=== PATIENT | male | born 1985 | race Caucasian/White ===

== ENCOUNTER 2018-06-21 08:07 | Emergency (ER) | payer OTHER, SELFPAY ==
[2018-06-21 07:53] VITALS: PULSE 65; RESP 16; TEMP 37
--- NOTE | 2018-06-21 07:58 | W.ED.GENAD ---
Discharge Plan Disposition Patient Disposition: HOME Condition: Improving Discharge Details Chief Complaint: Nk/Back Pain Clinical Impression: Spasm of lumbar paraspinous muscle Reason For Visit: SAÚL Primary Care Provider: Jeanne Gar ED Provider: Hadley Lira Home Meds and New Rx's Prescriptions: New methocarbamol 500 mg tablet 500 mg PO Q6H PRN (Reason: Back pain or spasm) Qty: 14 RF: 0 Continue Bromidine Titrate 1 drp OU BID RF: 0 Discharge Instructions Instructions: Muscle Spasm (ED) Additional Instructions: Home to rest. Minimal physical exertion today. May foam roll or massage. Avoid deep stretching for approximately 1 week. Continue to hydrate as you have been. May use methocarbamol as needed for persistent pain or spasm. Return for development of weakness of the legs, numbness or tingling, or any other acute concern. Medical Decision Making 33-year-old male with the abrupt onset of left lumbar back spasm while rolling over in bed this morning. Somewhat improved by the time of arrival to position and heat. No motor or sensory deficits. Does not appear to be urologic. Patient had IV access established by EMS, on arrival was given 1 L lactated Ringer's, 2 g of magnesium, ketorolac and small amount of parenteral Valium. Urinalysis obtained Patient improved significantly with above medications, with little to no persistent pain. I do not feel that there is evidence of sacroiliitis, but that it is most consistent with muscular spasm. Improved and will trial outpatient management. Home care and return precautions discussed. Will offer methocarbamol for persistent muscular pain/spasm. HPI General Mode of arrival: EMS. Date/Time Provider Initiated Documentation: 06/21/18 08:47. Limitations to Documentation: no limitations. Information obtained by: patient and EMS. History of Present Illness described as severe, and is localized to the back and left. Patient reports no radiation. Patient started experiencing this hour(s) and it has been other (Improving). other things that improve symptom(s), (Heat) Movement worsens symptoms . Patient notes nausea/vomiting. HPI Narrative: Back pain and spasm that began while twisting to turn off the alarm. Associated with waves of pain and vomited x2. Seem to worsen when lying in cold bathroom floor. EMS called, patient able to ambulate to the ambulance, was brought to the emergency department and is improved at arrival. No change to urine, no fever, no motor or sensory changes. Related Data Home Medications Medication Instructions Recorded Confirmed Bromidine Titrate 1 drp OU BID 01/02/18 06/21/18 methocarbamol 500 mg PO Q6H PRN #14 tab 06/21/18 Previous Rx's Medication Instructions Recorded methocarbamol 500 mg PO Q6H PRN #14 tab 06/21/18 Allergies Allergy/AdvReac Type Severity Reaction Status Date / Time doxycycline AdvReac Unverified 06/21/18 08:54 Review of Systems Review of Systems 6 systems reviewed and otherwise negative [facility] Social History Smoking/Tobacco Use Status: Never Exam Narrative Exam Narrative: GEN: awake, alert, oriented 3. Pleasant, well groomed, interactive. HEAD: Normocephalic, atraumatic ENT: Mucous membranes moist, oropharynx unremarkable, External ear exam unremarkable EYES: PERRL, EOMI NECK: Full ROM, no PONCHO, no menigismus CHEST/RESP: Nontender, clear to auscultation bilateral, no wheeze/rhonchi/rales CARDIOVASCULAR: RRR, no murmur, rub toby. 2+ Rad pulse bilateral ABDOMEN: Soft, nontender, no mass. +Bowel sounds. Examination of the back reveals muscular spasm and tenderness along the left paraspinous musculature of the lumbar region. No significant sciatic notch tenderness. EXT: Full ROM, no edema, no rash. Motor 5 out of 5, sensation intact throughout. 2+ patellar reflex bilaterally. Neuro: Grossly normal neurologic exam, conversant, interactive. Psych: Speech fluent, thoughts congruent, affect normal
[2018-06-21] MEDS: Lactated Ringers 1,000 ML 1000 ML IV (08:00)
[2018-06-21] MEDS: Ketorolac 30 MG/ML VIAL IVP (08:00)
--- NOTE | 2018-06-21 08:02 | ED.GENADUL_ITS ---
Discharge Plan Disposition Patient Disposition: HOME Condition: Improving Discharge Details Chief Complaint: Nk/Back Pain Clinical Impression: Spasm of lumbar paraspinous muscle Reason For Visit: SAÚL Primary Care Provider: Jeanne Gar ED Provider: Hadley Lira Home Meds and New Rx's Prescriptions: New methocarbamol 500 mg tablet 500 mg PO Q6H PRN (Reason: Back pain or spasm) Qty: 14 RF: 0 Continue Bromidine Titrate 1 drp OU BID RF: 0 Discharge Instructions Instructions: Muscle Spasm (ED) Additional Instructions: Home to rest. Minimal physical exertion today. May foam roll or massage. Avoid deep stretching for approximately 1 week. Continue to hydrate as you have been. May use methocarbamol as needed for persistent pain or spasm. Return for development of weakness of the legs, numbness or tingling, or any other acute concern. Medical Decision Making 33-year-old male with the abrupt onset of left lumbar back spasm while rolling over in bed this morning. Somewhat improved by the time of arrival to position and heat. No motor or sensory deficits. Does not appear to be urologic. Patient had IV access established by EMS, on arrival was given 1 L lactated Ringer's, 2 g of magnesium, ketorolac and small amount of parenteral Valium. Urinalysis obtained Patient improved significantly with above medications, with little to no persistent pain. I do not feel that there is evidence of sacroiliitis, but that it is most consistent with muscular spasm. Improved and will trial outpatient management. Home care and return precautions discussed. Will offer methocarbamol for persistent muscular pain/spasm. HPI General Mode of arrival: EMS . Date/Time Provider Initiated Documentation: 06/21/18 08:47 . Limitations to Documentation: no limitations . Information obtained by: patient and EMS . History of Present Illness described as severe, and is localized to the back and left. Patient reports no radiation. Patient started experiencing this hour(s) and it has been other (Improving). other things that improve symptom(s), (Heat) Movement worsens symptoms . Patient notes nausea/vomiting. HPI Narrative: Back pain and spasm that began while twisting to turn off the alarm. Associated with waves of pain and vomited x2. Seem to worsen when lying in cold bathroom floor. EMS called, patient able to ambulate to the ambulance, was brought to the emergency department and is improved at arrival. No change to urine, no fever, no motor or sensory changes. Related Data Home Medications Medication Instructions Recorded Confirmed Bromidine Titrate 1 drp OU BID 01/02/18 06/21/18 methocarbamol 500 mg PO Q6H PRN #14 tab 06/21/18 Previous Rx's Medication Instructions Recorded methocarbamol 500 mg PO Q6H PRN #14 tab 06/21/18 Allergies Allergy/AdvReac Type Severity Reaction Status Date / Time doxycycline AdvReac Unverified 06/21/18 08:54 Review of Systems Review of Systems 6 systems reviewed and otherwise negative [facility] Social History Smoking/Tobacco Use Status: Never Exam Narrative Exam Narrative: GEN: awake, alert, oriented 3. Pleasant, well groomed, interactive. HEAD: Normocephalic, atraumatic ENT: Mucous membranes moist, oropharynx unremarkable, External ear exam unremarkable EYES: PERRL, EOMI NECK: Full ROM, no PONCHO, no menigismus CHEST/RESP: Nontender, clear to auscultation bilateral, no wheeze/rhonchi/rales CARDIOVASCULAR: RRR, no murmur, rub toby. 2+ Rad pulse bilateral ABDOMEN: Soft, nontender, no mass. +Bowel sounds. Examination of the back reveals muscular spasm and tenderness along the left paraspinous musculature of the lumbar region. No significant sciatic notch tenderness. EXT: Full ROM, no edema, no rash. Motor 5 out of 5, sensation intact throughout. 2+ patellar reflex bilaterally. Neuro: Grossly normal neurologic exam, conversant, interactive. Psych: Speech fluent, thoughts congruent, affect normal
[2018-06-21] MEDS: MAGNESIUM SULFATE 2 GM/50 ML BAG IVPB (08:10)
[2018-06-21 09:10] LABS: Bilirubin Negative (Negative); Blood Small (Negative); Clarity Clear; Glucose Negative (Negative); Ketones Negative (Negative); Leukocyte Esterase Negative (Negative); Nitrite Negative (Negative); Urobilinogen 0.2 EU/dL (Up TO 0.2)
[2018-06-21 09:22] LABS: Bacteria Negative HPF (Negative); C & S Indicated? No; Casts Negative LPF (Negative); Crystals Negative HPF (Negative); Epithelial Cells Negative HPF (Negative); Mucus Moderate (Negative); WBC 0-2 HPF (0-5)
[2018-06-21 09:55] VITALS: BP 125/74; PULSE 64; RESP 16; TEMP 37; O2SAT 98
--- NOTE | 2018-06-21 10:05 | NUR.NOTE ---
pt accedently pulled his IV out. Half of the magnesium dose ordered given.-per DR Lira.Nursing Note:
== END 2018-06-21 10:01 | disposition home or self-care (01) ==
LOC: ER 10:21
PROVIDERS: Emergency Provider Emergency Medicine; PCP Internal Medicine
DX: M62.830 Muscle spasm of back (principal); R11.2 Nausea with vomiting, unspecified
CPT/HCPCS: 96361; 96365; 96375; 99284; 81003; 81015; J1885

== ENCOUNTER 2019-07-22 09:19 | Outpatient (REF) | payer OTHER, SELFPAY ==
[2019-07-22 13:04] LABS: ALT 22 U/L (16-63); AST 20 U/L (15-37)
== END 2019-07-22 09:39 ==
LOC: NCHCN 09:19
PROVIDERS: PCP Internal Medicine; Visit Provider Nurse Practitioner Family
DX: R74.0 Nonspecific elevation of levels of transaminase and lactic acid dehydrogenase [LDH] (principal)
CPT/HCPCS: 84450; 84460

== ENCOUNTER 2019-12-28 12:30 | Outpatient (REF) | payer OTHER, SELFPAY ==
[2019-12-28 21:34] LABS: HCT 43.2 % (40.0-50.0); HGB 14.7 g/dL (13.5-17.5); Mean Corpuscular Hemoglobin 30.2 pg (27.0-33.0); Mean Corpuscular Volume 88.9 fL (80-95); Mean Platelet Volume 10.1 fL (8.0-11.0); Platelet Count 242 x1000/uL (130-400); RBC 4.86 m/cumm (4.50-6.00); White Blood Cell Count 4.52 k/cumm (4.4-10.8)
[2019-12-28 21:44] LABS: BUN 17 mg/dL (7-18); CREATININE 0.91 mg/dL (0.70-1.30); Calcium 8.8 mg/dL (8.5-10.1); Chloride 103 mmol/L (98-107); Glucose 90 mg/dL (74-106); Potassium 4.3 mmol/L (3.5-5.1); Sodium 141 mmol/L (136-145); TSH (W/Ref FT4) 0.92 uIU/mL (0.36-3.74)
== END 2019-12-28 12:50 ==
LOC: NCHCN 12:30
PROVIDERS: PCP Internal Medicine
DX: R07.89 Other chest pain (principal); R06.02 Shortness of breath; R53.83 Other fatigue; R42 Dizziness and giddiness
CPT/HCPCS: 80048; 85027; 84443

== ENCOUNTER 2020-02-15 13:15 | Outpatient (REF) | payer OTHER, SELFPAY ==
[2020-02-17 23:51] LABS: SARS-CoV-2 RNA Undetected (Undetected); SARS-CoV-2 Specimen Source Nasopharynx
== END 2020-02-15 13:35 ==
LOC: NCHCN 13:15
PROVIDERS: PCP Internal Medicine; Visit Provider Internal Medicine
DX: Z20.9 Contact with and (suspected) exposure to unspecified communicable disease (principal)
CPT/HCPCS: U0003

== ENCOUNTER 2020-08-13 16:16 | Outpatient (REF) | payer OTHER, SELFPAY ==
[2020-08-14 11:34] LABS: Hepatitis C Ab w Rflx HCV PCR Negative (Negative)
[2020-08-14 11:37] LABS: Hepatitis C Ab w Rflx HCV PCR Negative (Negative)
== END 2020-08-13 16:36 ==
LOC: NCHCN 16:16
PROVIDERS: PCP Nurse Practitioner Family; Visit Provider Nurse Practitioner Family
DX: Z00.00 Encounter for general adult medical examination without abnormal findings (principal); Z11.59 Encounter for screening for other viral diseases; G43.909 Migraine, unspecified, not intractable, without status migrainosus
CPT/HCPCS: 86803

== ENCOUNTER 2021-06-10 16:19 | Outpatient (REF) | payer OTHER, SELFPAY ==
[2021-06-10 22:13] LABS: ALT 23 U/L (16-63); AST 16 U/L (15-37); Albumin 4.1 g/dL (3.4-5.0); Alkaline Phosphatase 96 U/L (46-116); Bilirubin, Total 0.6 mg/dL (0.2-1.0)
[2021-06-10 22:22] LABS: Bilirubin, Direct 0.1 mg/dL (0.0-0.2)
== END 2021-06-10 16:20 | disposition home or self-care (01) ==
LOC: NCHCN 16:19
PROVIDERS: PCP Nurse Practitioner Family; Visit Provider Family Medicine
DX: B35.1 Tinea unguium (principal); Z51.81 Encounter for therapeutic drug level monitoring
CPT/HCPCS: 80076

== ENCOUNTER 2022-10-07 13:56 | Outpatient (REF) | payer OTHER, SELFPAY ==
[2022-10-07 16:03] LABS: Abs Immature Grans 0.02 10^3/uL (0.0-0.06); Absolute Basophil Count 0.05 10^3/uL (0.0-0.2); Absolute Eosinophil Count 0.32 10^3/uL (0.0-0.7); Absolute Lymphocyte Count 1.78 10^3/uL (1.2-3.4); Absolute Monocyte Count 0.59 10^3/uL (0.1-0.8); Absolute Neutrophil Count 2.18 10^3/uL (1.2-6.7); Eosinophils % 6.5; HCT 45.3 % (40.0-50.0); Immature Grans % 0.4; MCH 30.1 pg (27.0-33.0); MCHC 35.3 % (32.0-36.0); MCV 85 fL (80-95); MPV 9.4 fL (8.0-11.0); Monocytes % 11.9; Neutrophils % 44.2; Platelet Count 275 10^3/uL (130-400); RBC 5.32 10^6/uL (4.36-5.78); RDW-SD 36.7 fL; WBC 4.94 10^3/uL (4.4-10.8)
[2022-10-07 16:43] LABS: Iron 131 ug/dL (65-175); Total Iron Binding Capacity 237 ug/dL (250-450); Transferrin Sat 55 % (20-55)
[2022-10-07 17:04] LABS: Anion Gap 7.8 mmol/L (3-11); BUN 14 mg/dL (7-18); CO2 28.2 mmol/L (21.0-32.0); CREATININE 0.9 mg/dL (0.70-1.30); Chloride 104 mmol/L (98-107); Estimated GFR 111.42 (mL/min/1.73m2); Ferritin 337 ng/mL (26-388); Glucose 101 mg/dL (74-106); Potassium 4.6 mmol/L (3.5-5.1); Sodium 140 mmol/L (136-145); TSH (W/Ref FT4) 0.92 uIU/mL (0.36-3.74); Vitamin B12 689 pg/mL (193-986)
== END 2022-10-07 13:57 | disposition home or self-care (01) ==
LOC: NCHCN 13:56
PROVIDERS: PCP Nurse Practitioner Family; Visit Provider Nurse Practitioner Family
DX: Z00.00 Encounter for general adult medical examination without abnormal findings (principal); R06.83 Snoring; R53.83 Other fatigue; F43.10 Post-traumatic stress disorder, unspecified; F41.9 Anxiety disorder, unspecified; M79.672 Pain in left foot; H47.329 Drusen of optic disc, unspecified eye; G43.909 Migraine, unspecified, not intractable, without status migrainosus
CPT/HCPCS: 80048; 82607; 82728; 83540; 83550; 84443; 85025

== ENCOUNTER 2023-01-11 22:49 | Emergency (ER) | payer OTHER, SELFPAY ==
[2023-01-11 22:53] VITALS: BP 132/93; PULSE 69; RESP 20; TEMP 36.1; O2SAT 98
--- NOTE | 2023-01-11 23:06 | W.ED.GENAD ---
Discharge Plan Disposition Patient Disposition: Home Condition: Improving Discharge Details Clinical Impression: Hemorrhoid Primary Care Provider: Nita Eason ED Provider: Colton Mendez Home Meds and New Rx's Prescriptions: New hydrocortisone [Anusol-HC] 2.5 % cream with perineal applicator 1 applic [place] BID-QID PRNQty: 30 0RF docusate sodium [Colace] 100 mg capsule 100 mg PO DAILY Qty: 20 0RF Discharge Instructions Instructions: Hemorrhoids (DC) Additional Instructions: Please use medications as prescribed. Please return to the emergency department for new or worsening symptoms. If hemorrhoid not healing in the next couple of weeks consider calling surgical team for follow-up appointment Referrals: Issac Marroquin MD [ [facility] STAFF PHYSICIAN] - 2 weeks (if non healing in the next couple weeks, call for appointment with surgical team) Medical Decision Making 37-year-old male presents with rectal bleeding, has been dealing with hemorrhoids for some time was using Preparation H earlier today, red blood running down his leg after driving the car this evening, patient is hemodynamically stable abdomen soft nontender nondistended alert oriented nontoxic. External hemorrhoid likely partially thrombosed with area of ulceration and spontaneous venous oozing. No active hemorrhage. Will apply Anusol. Will send basic labs type and screen and PT/INR. Close reassessment of symptoms likely home with surgical follow-up as needed 23: 48 bleeding is stopped. Anusol administered. Will discharge home with stool softener Anusol and surgical referral as needed. Home care instructions return precautions give HPI General Date/Time Provider Initiated Documentation: 01/11/23 22:51. HPI Narrative: 37-year-old male history of hemorrhoids presents with bright light blood from rectum was having rectal/anal pain throughout the last couple of days, noticed a hemorrhoid was using Preparation H today. [place] liquid blood running down his leg before arrival when he was driving the car Related Data Home Medications Medication Instructions Recorded Confirmed docusate sodium 100 mg capsule 100 mg PO DAILY #20 caps 01/11/23 (Colace) hydrocortisone 2.5 % topical cream 1 applic [place] BID-QID PRN #30 grams 01/11/23 with perineal applicator (Anusol-HC) Previous Rx's Medication Instructions Recorded docusate sodium 100 mg capsule 100 mg PO DAILY #20 caps 01/11/23 (Colace) hydrocortisone 2.5 % topical cream 1 applic [place] BID-QID PRN #30 grams 01/11/23 with perineal applicator (Anusol-HC) Allergies Allergy/AdvReac Type Severity Reaction Status Date / Time doxycycline AdvReac Unverified 06/21/18 08:54 General Stated Complaint: GI Bleed SABRINA: 3 Review of Systems Narrative: Review of Systems Constitutional: negative Eyes: negative ENT: negative Cardiovascular: negative Respiratory: negative Gastrointestinal: Rectal bleeding : negative Musculoskeletal: negative Skin: negative Neurologic: negative Psych: negative PFSH All Active Problems (Updated 01/11/23 @ 23:48 by Colton Mendez MD) Hemorrhoid (Acute) Social History Smoking/Tobacco Use Status: Never Smoking risk assessment performed?: Yes Alcohol Intake: never Drug use: Never Substance use type: does not use Do you feel safe in your relationship?: Yes Exam Narrative Exam Narrative: Physical Examination General: alert, awake, cooperative, resting comfortably, no acute distress HEENT: normocephalic, atraumatic; PERRL, EOM intact, conjunctiva normal; no nasal discharge; moist mucous membranes, oral and pharyngeal mucosa normal, tolerating secretions Neck: supple, trachea midline; full ROM Chest: normal to inspection Respiratory: normal respiratory effort, speaking in full sentences, clear to auscultation, no wheezing, rales or rhonchi Cardiac: regular rate, regular rhythm, S1S2 intact, no murmurs rubs or gallops GI: abdomen soft, non-tender, non-distended; no palpable mass or hepatosplenomegaly; large partially thrombosed external hemorrhoid, area of spontaneous ulceration that has ruptured, small amount of venous oozing Skin: no lesions, rashes or trauma appreciated Neuro: AAOx3, normal speech, moving all extremities Psych: Appropriate mood and affect Course Vital Signs Vital signs: Vital Signs Temperature 36.1 C L 01/11/23 22:53 Pulse 69 01/11/23 22:53 Respiratory Rate 20 01/11/23 22:53 Blood Pressure 132/93 H 01/11/23 22:53 Pulse Oximetry 98 01/11/23 22:53 Temperature 36.1 C L 01/11/23 22:53 Temperature Source Temporal Artery Scan 01/11/23 22:53 Pulse 69 01/11/23 22:53 Respiratory Rate 20 01/11/23 22:53 Respiratory Effort Normal 01/11/23 22:57 Blood Pressure 132/93 H 01/11/23 22:53 Blood Pressure Position Sitting 01/11/23 22:53 Pulse Oximetry 98 01/11/23 22:53 Oxygen Delivery Method Room Air 01/11/23 22:53 Oxygen Flow Rate 0 01/11/23 22:53
[2023-01-11 23:11] LABS: Abs Immature Grans 0.01 10^3/uL (0.0-0.06); Absolute Basophil Count 0.04 10^3/uL (0.0-0.2); Absolute Eosinophil Count 0.45 10^3/uL (0.0-0.7); Absolute Lymphocyte Count 2.42 10^3/uL (1.2-3.4); Absolute Monocyte Count 0.72 10^3/uL (0.1-0.8); Basophils % 0.6; HCT 41.2 % (40.0-50.0); HGB 14.4 g/dL (13.5-17.5); Immature Grans % 0.2; Lymphocytes % 37.6; MCH 30.4 pg (27.0-33.0); MCV 87 fL (80-95); Monocytes % 11.2; Neutrophils % 43.4; Platelet Count 221 10^3/uL (130-400); RBC 4.74 10^6/uL (4.36-5.78); RDW 12.3 % (11.8-14.1); RDW-SD 39.5 fL; WBC 6.44 10^3/uL (4.4-10.8)
[2023-01-11 23:22] LABS: PTT Activated 26.5 sec (21.5-31.9); Prothrombin Time 10.5 sec (9.3-11.0)
[2023-01-11] MEDS: Hydrocortisone 25 MG SUPP PR (23:24)
[2023-01-11 23:29] LABS: ALT 30 U/L (16-63); AST 29 U/L (15-37); Albumin 3.8 g/dL (3.4-5.0); Alkaline Phosphatase 85 U/L (46-116); BUN 14 mg/dL (7-18); Bilirubin, Total 0.4 mg/dL (0.2-1.0); Calcium 8.4 mg/dL (8.5-10.1); Chloride 106 mmol/L (98-107); Estimated GFR 98.18 (mL/min/1.73m2); Glucose 118 mg/dL (74-106); Potassium 3.4 mmol/L (3.5-5.1); Sodium 142 mmol/L (136-145); Total Protein 6.9 g/dL (6.4-8.2)
[2023-01-11 23:43] VITALS: BP 119/81; PULSE 57; PULSE 61; RESP 15; O2SAT 98
[2023-01-11 23:44] VITALS: PULSE 64; RESP 16; O2SAT 98
[2023-01-11 23:46] VITALS: BP 117/85; PULSE 59; PULSE 60; RESP 21; O2SAT 99
[2023-01-12 00:02] VITALS: BP 117/85; PULSE 65; RESP 18; O2SAT 98
== END 2023-01-12 00:03 | disposition home or self-care (01) ==
PROVIDERS: Emergency Provider Emergency Medicine; PCP Nurse Practitioner Family
DX: K64.9 Unspecified hemorrhoids (principal)
CPT/HCPCS: 36415; 80053; 86850; 86900; 86901; 99283; 85025; 85610; 85730

== ENCOUNTER 2023-10-12 09:51 | Outpatient (REF) | payer OTHER, SELFPAY ==
[2023-10-12 22:18] LABS: PSA, Diagnostic 0.6 ng/mL (<=2.5)
== END 2023-10-12 09:52 | disposition home or self-care (01) ==
LOC: NCHCN 09:51
PROVIDERS: PCP Nurse Practitioner Family; Visit Provider Nurse Practitioner Family
DX: E66.3 Overweight (principal); Z80.42 Family history of malignant neoplasm of prostate
CPT/HCPCS: 84153; 84443

== ENCOUNTER 2024-03-10 13:01 | Emergency (ER) | payer OTHER, SELFPAY ==
[2024-03-10] VITALS (19 sets, daily range): BP systolic 111–133; BP diastolic 78–92; PULSE 65–92; RESP 12–22; TEMP 36.2–36.4; O2SAT 95–97
--- NOTE | 2024-03-10 13:00 | RT.EKG_ITS ---
APPROVED REPORT Exam: Resting ECG Reason for Exam: sob Patient Location: E HR:81 bpm ECG Measurements Heart Rate 81 AXIS SD 166 P 75 QRSd 66 QRS 79 QT 353 T 63 QTc 410 Conclusion Sinus rhythm...normal P axis, V-rate 60- 99 Probable left atrial enlargement...P >50mS, <-0.10mV V1
[2024-03-10 13:22] LABS: Abs Immature Grans 0.02 10^3/uL (0.0-0.06); Absolute Basophil Count 0.06 10^3/uL (0.0-0.2); Absolute Eosinophil Count 0.16 10^3/uL (0.0-0.7); Absolute Lymphocyte Count 1.62 10^3/uL (1.2-3.4); Absolute Monocyte Count 0.58 10^3/uL (0.1-0.8); Absolute Neutrophil Count 2.78 10^3/uL (1.2-6.7); Basophils % 1.1 %; Eosinophils % 3.1 %; HCT 47.6 % (40.0-50.0); HGB 16.8 g/dL (13.5-17.5); Immature Grans % 0.4 %; MCH 29.7 pg (27.0-33.0); MCHC 35.3 % (32.0-36.0); MCV 84 fL (80-95); MPV 8.9 fL (8.0-11.0); Monocytes % 11.1 %; Neutrophils % 53.3 %; Platelet Count 219 10^3/uL (130-400); RBC 5.65 10^6/uL (4.36-5.78); RDW 12.1 % (11.8-14.1); RDW-SD 37.1 fL; WBC 5.22 10^3/uL (4.4-10.8)
--- NOTE | 2024-03-10 13:30 | DI.CT_ITS ---
Exam(s) CT BRAIN NECK CTA EXAM: CT BRAIN NECK CTA CLINICAL HISTORY: left arm numbness. TECHNIQUE: Imaging Protocol: Axial CT angiography was performed with multi-slice acquisition and mu lti-planar and MIP reconstructions. CONTRAST MATERIAL: Intravenous: Omnipaque 350 Contrast volume:100 ml COMPARISON: No exams were available for comparison FINDINGS: CT Head W/O and W contrast: Ventricles and Extra axial spaces: Normal in size and morphology for the patient's age. Hemorrhage: None. Cerebral parenchyma: No evidence of acute infarct or mass. Midline shift: None. Brainstem/Cerebellum: No acute findings.. Calvarium: Normal. Visualized Paranasal sinuses/Mastoids: Clear. Soft Tissues: Unremarkable. Enhancement: Normal. CTA Brain W: Internal Carotid Arteries: Petrous: Normal. Cavernous: Normal. Cerebral: Normal. Middle Cerebral Arteries: Right: No aneurysm, occlusion or significant stenosis. Left: No aneurysm, occlusion or significant stenosis. Anterior Cerebral Arteries: Right: No aneurysm, occlusion or significant stenosis. Left: No aneurysm, occlusion or significant stenosis. Posterior cerebral Arteries: Right: No aneurysm, occlusion or significant stenosis. Left: No aneurysm, occlusion or significant stenosis. Vertebral Arteries: Right: No aneurysm, occlusion or significant stenosis. Left: No aneurysm, occlusion or significant stenosis. Basilar Artery: No aneurysm, occlusion or significant stenosis. CTA Neck W: Common Carotid: Right: No dissection, occlusion or significant stenosis. Left: No dissection, occlusion or significant stenosis. External Carotid: Right: No dissection, occlusion or significant stenosis. Left: No dissection, occlusion or significant stenosis. Internal Carotid: Right: No dissection, occlusion or significant stenosis. Left: No dissection, occlusion or significant stenosis. Vertebral Artery: Right: No dissection, occlusion or significant stenosis. Left: No dissection, occlusion or significant stenosis. Lung Apices: No acute findings. Bones: No acute abnormality. Degenerative disc changes at C6-7. Soft Tissues: Normal. IMPRESSION: 1. CTA brain: Normal CTA examination of the [place] of [place]. 2. Head CT: Unremarkable CT Head. 3. CTA neck: Normal CTA examination of the neck. RADIATION DOSE DELIVERED: 2,205.81mGy.cm Total DLP DATA REPOSITORY: All CT scans at this facility are submitted to the National Radiology Data Registry (NRDR) Dose Index Registry (DIR) with the [employer] (A[employer]). RADIATION OPTIMIZATION: All CT scans at this facility use at least one of these dose optimization te chniques: automated exposure control; mA and/or kV adjustment per patient size (includes targeted exa ms where dose is matched to clinical indication); or iterative reconstruction.
[2024-03-10 13:45] LABS: ALT 33 U/L (16-63); AST 30 U/L (15-37); Albumin 4.2 g/dL (3.4-5.0); Alkaline Phosphatase 104 U/L (46-116); Anion Gap 7.1 mmol/L (3-11); BUN 13 mg/dL (7-18); Bilirubin, Total 1.01 mg/dL (0.2-1.0); CO2 28.9 mmol/L (21.0-32.0); CREATININE 1.1 mg/dL (0.70-1.30); Calcium 9.3 mg/dL (8.5-10.1); Chloride 102 mmol/L (98-107); Estimated GFR 87.03 (mL/min/1.73m2); Glucose 103 mg/dL (74-106); Magnesium 1.8 mg/dL (1.8-2.4); Potassium 4.2 mmol/L (3.5-5.1); Sodium 138 mmol/L (136-145); Total Protein 7.8 g/dL (6.4-8.2); Troponin I < 50 ng/L (< or =60)
--- NOTE | 2024-03-10 14:00 | DI.MRI_ITS ---
Exam(s) MR BRAIN WO EXAM: MR BRAIN WO CLINICAL HISTORY: left arm weakness, now resolved. TECHNIQUE: Multiplanar multisequence MRI of the brain was performed. CONTRAST MATERIAL: Noncontrast COMPARISON: CT CT BRAIN NECK CTA from 03/10/2024 FINDINGS: VENTRICLES AND EXTRA AXIAL SPACES: Normal in size and morphology for the patient's age. HEMORRHAGE: No acute hemorrhage. Single focus of susceptibility artifact seen in the left frontal pa rietal region, at the level of the left lateral ventricle, consistent with hemosiderin which could be secondary to an old focus of hemorrhage. CEREBRAL PARENCHYMA: No focus of restricted diffusion to suggest acute infarct. No space-occupying le karena identified. MIDLINE SHIFT: None. BRAINSTEM/CEREBELLUM: Normal. CALVARIUM: Normal. VISUALIZED PARANASAL SINUSES/MASTOIDS: Clear. Orbits: Unremarkable. Pituitary: Normal. Vasculature: Normal flow voids. IMPRESSION: No evidence of acute infarct. Single focus of hemosiderin deposition in the left frontal parietal region DATA REPOSITORY:
[2024-03-10] MEDS: Omnipaque 350 MG/ML 100 ML BTL IJ (14:03)
[2024-03-10] MEDS: Normal Saline - Diluent 50 ML VIAL IJ (14:05)
--- NOTE | 2024-03-10 14:35 | W.ED.GENAD ---
Discharge Plan Disposition Patient Disposition: Home Condition: Stable Discharge Details Clinical Impression: Left arm weakness, TIA (transient ischemic attack) Primary Care Provider: Nita Eason ED Provider: Jonathan Parsons Home Meds and New Rx's Prescriptions: No Action buspirone 10 mg tablet 10 mg PO BID Discharge Instructions Instructions: Transient Ischemic Attack ED, [place] ED Additional Instructions: MRI of your brain showed no stroke. There was a incidental finding of a single focus of hemosiderin deposit in the left frontal parietal region. This could be secondary to an old focus of hemorrhage. Please follow-up with neurology. Call tomorrow to schedule follow-up. Please contact your primary care physician to arrange follow-up. No strenuous activity until cleared by your doctor. Return to the ER immediately for any worsening or new concerning symptoms. Referrals: [facility] [Provider Group] Nita Eason [Primary Care Provider] - Socorro Bustamante DPM [[facility] STAFF PHYSICIAN] - Discharge Data Discharge Date/Time-TO BE ENTERED AT DEPARTURE: 03/10/24 17:48 HPI General Mode of arrival: ambulatory. Date/Time Provider Initiated Documentation: 03/10/24 13:05. Limitations to Documentation: no limitations. Information obtained by: patient. HPI Narrative: 38-year-old male presents with chief complaint of left arm weakness. Patient notes he was running on a treadmill around 1140 this morning. He ran 3 miles. 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 He notes he was unable to hold up his cell phone. Symptoms lasted about 5 minutes and then resolved. He experienced associated nausea and sweating. Patient notes since that time he has had generalized fatigue as well as some achiness in his legs bilaterally. The symptoms are abnormal for him. Patient also notes left toenail ingrown and concern for infection. This has been ongoing for a few days. No associated fever. Related Data Home Medications ?Medication ?Instructions ?Recorded ?Confirmed buspirone 10 mg tablet 10 mg PO BID 03/17/24 Allergies Allergy/AdvReac Type Severity Reaction Status Date / Time doxycycline AdvReac Other (See Unverified 03/10/24 13:10 Comment) General Stated Complaint: CVA/TIA SABRINA: 2 Review of Systems Constitutional Constitutional: Denies fever(s) Integumentary/Breasts Skin/Breast: Reports as per HPI Neurologic Neurologic: Reports as per HPI Exam Const General: cooperative and no acute distress HENMT Head: atraumatic Mouth: moist mucous membranes Eyes Conjunctivae: normal conjunctivae Sclera: normal sclerae EOM: EOM intact bilaterally Neck Neck: trachea midline Resp Auscultation: clear to auscultation bilaterally, no rales, no rhonchi and no wheezes Cardio Rate: regular rate and not tachycardic Rhythm: regular rhythm GI Palpation: soft, not firm, no guarding, no masses, not rigid and nontender Skin General skin exam: no rashes or lesions noted Neuro General: patient alert, patient awake, patient oriented x3 and tone normal Cranial Nerves: CN's II-XI intact bilaterally Cognition: normal cognition Speech: speech normal Gait: normal gait Motor: muscle tone normal throughout and strength 5/5 throughout Sensory Exam: no sensory deficits noted Extrem General: no edema Left lower extremity: foot ([place] great toe) Psych Appearance: grossly normal Mental Status: mental status grossly normal Speech and Movement: speech and movement normal Course Vital Signs Vital signs: Vital Signs Temperature 36.2 C L 03/10/24 13:07 Pulse 92 H 03/10/24 13:07 Respiratory Rate 16 03/10/24 13:07 Blood Pressure 133/92 H 03/10/24 13:07 Pulse Oximetry 97 03/10/24 13:07 Temperature 36.2 C L 03/10/24 13:07 Temperature Source Oral 03/10/24 13:07 Pulse 92 H 03/10/24 13:07 Pulse 85 03/10/24 13:19 Respiratory Rate 13 03/10/24 13:29 Respiratory Effort Normal, Non-Labored 03/10/24 13:29 Respiratory Depth Normal 03/10/24 13:29 Respiratory Pattern Normal 03/10/24 13:29 Blood Pressure 133/92 H 03/10/24 13:07 Blood Pressure Position Sitting 03/10/24 13:07 Pulse Oximetry 97 03/10/24 13:19 Oxygen Delivery Method Room Air 03/10/24 13:07 Oxygen Flow Rate 0 03/10/24 13:07 Pain Level 0 03/10/24 13:07 Lab/Test Results Lab/Test Results: Laboratory Tests Range/Units 03/10/24 13:13 WBC (4.4-10.8) 10^3/uL 5.22 RBC (4.36-5.78) 10^6/uL 5.65 Hgb (13.5-17.5) g/dL 16.8 Hct (40.0-50.0) % 47.6 MCV (80-95) fL 84 MCH (27.0-33.0) pg 29.7 MCHC (32.0-36.0) % 35.3 RDW (11.8-14.1) % 12.1 Plt Count (130-400) 10^3/uL 219 MPV (8.0-11.0) fL 8.9 Immature Gran % % 0.4 Neutrophils % % 53.3 Lymphocytes % % 31.0 Monocytes % % 11.1 Eosinophils % % 3.1 Basophils % % 1.1 Nucleated RBC % (0.0-0.3) % 0.0 Absolute Neutrophils (1.2-6.7) 10^3/uL 2.78 Absolute Lymphocytes (1.2-3.4) 10^3/uL 1.62 Absolute Monocytes (0.1-0.8) 10^3/uL 0.58 Absolute Eosinophils (0.0-0.7) 10^3/uL 0.16 Absolute Basophils (0.0-0.2) 10^3/uL 0.06 Sodium (136-145) mmol/L 138 Potassium (3.5-5.1) mmol/L 4.2 Chloride (98-107) mmol/L 102 Carbon Dioxide (21.0-32.0) mmol/L 28.9 Anion Gap (3-11) mmol/L 7.1 BUN (7-18) mg/dL 13 Creatinine (0.70-1.30) mg/dL 1.1 Est GFR (CKD-EPI 2020) (mL/min/1.73m2) 87.03 Glucose (74-106) mg/dL 103 Calcium (8.5-10.1) mg/dL 9.3 Magnesium (1.8-2.4) mg/dL 1.8 Total Bilirubin (0.2-1.0) mg/dL 1.01 H AST (15-37) U/L 30 ALT (16-63) U/L 33 Alkaline Phosphatase (46-116) U/L 104 Troponin I (< or =60) ng/L < 50 Total Protein (6.4-8.2) g/dL 7.8 Albumin (3.4-5.0) g/dL 4.2 Procedures Abscess I/D Site: Foot Side (if applicable): Right Local Anesthetic: Other Anesthetic (cold) Technique: Incised with #11 Blade Amount of fluid expressed (mL): 1 Irrigation: No Packing used?: None Complications: Other (none) Medical Decision Making 1430 --38-year-old healthy male here with left arm weakness that lasted about 5 to 6 minutes with associated nausea and diaphoresis, now with fatigue and bilateral lower extremity achiness. Symptoms started after 3 mile run. Patient is neurologically intact. He is hemodynamically stable. Screening EKG was reviewed and interpreted by me: Sinus rhythm 81 bpm, probable left atrial enlargement., Normal axis. Concern for TIA vs mass. Plan to obtain diagnostic labs, CT/CTA of the brain and if normal, MRI of the brain. --Labs reviewed and nondiagnostic. 1708 --CT of the head and CTA of the head and neck interpreted by radiology: 1. CTA brain: Normal CTA examination of the [place]. 2. Head CT: Unremarkable CT Head. 3. CTA neck: Normal CTA examination of the neck. MRI of the brain interpreted by radiology:No evidence of acute infarct. Single focus of hemosiderin deposition in the left frontal parietal region Patient reassessed and remained asymptomatic. No arrhythmia on monitor during ED course. Plan for discharge with close outpatient follow-up with PCP and neurology. Disposition decision was made weighing the risks and benefits of hospitalization versus outpatient treatment, the risk for further decompensation, and the patient's wishes. The patient was stable and requested discharge. Prior to discharge, my usual and customary return precautions were reviewed with the patient - this included follow-up instructions and reason to return to the emergency department if condition worsens, does not improve as expected, or other new concerns arise. Lab Data Lab results reviewed: Yes I reviewed the patient's lab results. Labs: Laboratory Tests Range/Units 03/10/24 13:13 WBC (4.4-10.8) 10^3/uL 5.22 RBC (4.36-5.78) 10^6/uL 5.65 Hgb (13.5-17.5) g/dL 16.8 Hct (40.0-50.0) % 47.6 MCV (80-95) fL 84 MCH (27.0-33.0) pg 29.7 MCHC (32.0-36.0) % 35.3 RDW (11.8-14.1) % 12.1 Plt Count (130-400) 10^3/uL 219 MPV (8.0-11.0) fL 8.9 Immature Gran % % 0.4 Neutrophils % % 53.3 Lymphocytes % % 31.0 Monocytes % % 11.1 Eosinophils % % 3.1 Basophils % % 1.1 Nucleated RBC % (0.0-0.3) % 0.0 Absolute Neutrophils (1.2-6.7) 10^3/uL 2.78 Absolute Lymphocytes (1.2-3.4) 10^3/uL 1.62 Absolute Monocytes (0.1-0.8) 10^3/uL 0.58 Absolute Eosinophils (0.0-0.7) 10^3/uL 0.16 Absolute Basophils (0.0-0.2) 10^3/uL 0.06 Sodium (136-145) mmol/L 138 Potassium (3.5-5.1) mmol/L 4.2 Chloride (98-107) mmol/L 102 Carbon Dioxide (21.0-32.0) mmol/L 28.9 Anion Gap (3-11) mmol/L 7.1 BUN (7-18) mg/dL 13 Creatinine (0.70-1.30) mg/dL 1.1 Est GFR (CKD-EPI 2020) (mL/min/1.73m2) 87.03 Glucose (74-106) mg/dL 103 Calcium (8.5-10.1) mg/dL 9.3 Magnesium (1.8-2.4) mg/dL 1.8 Total Bilirubin (0.2-1.0) mg/dL 1.01 H AST (15-37) U/L 30 ALT (16-63) U/L 33 Alkaline Phosphatase (46-116) U/L 104 Troponin I (< or =60) ng/L < 50 Total Protein (6.4-8.2) g/dL 7.8 Albumin (3.4-5.0) g/dL 4.2 Quality:SDOH Health Related Social Needs: No Data to Display PFSH All Active Problems (Updated 03/17/24 @ 09:01 by Lulu Pastor) TIA (transient ischemic attack) (Acute) Left arm weakness (Acute) Medical History (Updated 03/17/24 @ 09:01 by Lulu Pastor) Pain, foot, left, chronic Aphasia Paresthesia of arm Fatigue Aphthous ulcer of mouth Decreased hearing Excessive cerumen in ear canal Drusen of optic disc Migraine Periodic limb movement disorder Obstructive sleep apnea PTSD (post-traumatic stress disorder) Anxiety disorder Overweight Onychomycosis due to dermatophyte Surgical History (Updated 03/17/24 @ 09:12 by Lulu Pastor) [place] teeth extracted S/P vasectomy Family History (Updated 03/17/24 @ 09:03 by Lulu Pastor) Mother Breast cancer Paternal Grandfather Prostate cancer Maternal Grandfather Colon cancer Social History Smoking/Tobacco Use Status: Never Smoking risk assessment performed?: Yes Alcohol Intake: never Drug use: Never Substance use type: does not use Do you feel safe in your relationship?: Yes
--- NOTE | 2024-03-10 17:19 | NUR.NOTE ---
Referral faxed to Neurology for a visit as soon as possible for follow up to TIA and Abnormal Findings on MRI.
--- NOTE | 2024-03-12 08:21 | NUR.NOTE ---
Access chart to reconcile EKG orders to the EKGs in [facility]. Duplicate order cancelled. Nursing Note:
== END 2024-03-10 17:48 | disposition home or self-care (01) ==
PROVIDERS: Emergency Provider Student in an Organized Health Care Education/Training Program; PCP Nurse Practitioner Family
DX: G45.9 Transient cerebral ischemic attack, unspecified; L03.031 Cellulitis of right toe
CPT/HCPCS: 10060; 70496; 70498; 80053; 82962; 93005; 99285; 70551; 83735; 84484; 85025; 93010; 99284; J3490

== ENCOUNTER 2024-03-11 16:59 | Outpatient (REF) | payer OTHER, SELFPAY ==
--- OUTSIDE RECORDS SUMMARY | 2024-03-11 17:03 | XMS_ITS | Encounter Summary ---
Author Name [facility] [facility] [place] Address [address] [place] [address] Support Name Relationship Address Phone KARLI HERNANDES Next of Kin [address] [place] [address] KARLI HERNANDES Emergency Contact [address] [place] [address] Selected Encounter This section includes the information on record at [place] for the Encounter. Date/Time Encounter Type Encounter Description Reason Pro vider Source Oct 26, 2023 03:26 PM Outpatient Encounter ADMIN PAT ACTIVTIES (MASNONCT) IHE Encounter Template Text not used by [place] Plan of Treatment: Future Appointments (+ 6 months) and Future Tests (+/- 45 days) The Plan of Treatment section includes future care activities for the patient from all [place] treatmentfacilities. This section includes future appointments and future orders which are active, pending or scheduled. Future Appointments This section includes appointments that were scheduled to occur 6 months from the date of the Encounter, up to a maximum of 20 appointments. The data comes from all [place] treatment facilities. Appointment Date/Time Appointment Type Appointme nt Facility Name Dec 21, 2023 01:00 PM AMBULATORY - [facility]AB MEDICIN E [facility] Feb 19, 2024 02:00 PM AMBULATORY - REHAB MEDICIN E [facility] Encounter Notes: All associated encounter notes This section contains the clinical notes associated to the Encounter. Date/Time Encounter Note(s) Provider Source Oct 26, 2023 03:26 PM LETTERS: LOCAL TITLE: [facility] [place] Letter to Patient STANDARD TITLE: LETTERS DATE OF NOTE: OCT 26, 2023@15:26 ENTRY DATE: OCT 26, 2023@15:26:29 AUTHOR: ELISEO ORTEGA COSIGNER: URGENCY: STATUS: COMPLETED DEPARTMENT OF [facility] [address], [address] [place], [place] [address] OCT 26, 2023 NANY HERNANDES [address] [place] [address] [address] [place] [address] Dear NANY HERNANDES: Hi I hope all is well! The [facility] is trying to reach you to schedule an appointment with THE [employer].If you have already been in contact with the clinic and scheduled an appointment you may disregard this letter. After 14 days with no response to schedule or cancel the request we will assume you no longer desire the appointment so we will disposition the request at that time. Please call us at the number during the business hours provided below as well to find a suitable date to schedule said appointment listed above. Business Hours: *EXCLUDING HOLIDAYS* MON,TU,THURS & FRI: 8:00-4:30 WED *we have extended hours*: 8:00-7:00 CLOSED: Sat-Sun Phone # [phone] We look forward to hearing from you. Sincerely, SITA Ortega [facility] [address] [place] [address] A MEMBER OF THE [facility] Visit us at our web site [email or web address] NANY HERNANDES VICTORIA ARIEL [facility]
--- OUTSIDE RECORDS SUMMARY | 2024-03-11 17:03 | XMS_ITS | Encounter Summary ---
Author Name [facility] [place] [facility] [place] Address [address] [place] [address] Support Name Relationship Address Phone KARLI HERNANDES Next of Kin [address] [place] [address] KARLI HERNANDES Emergency Contact [address] [place] [address] Selected Encounter This section includes the information on record at [place] for the Encounter. Date/Time Encounter Type Encounter Description Reason Provider Source Feb 19, 2024 02:00 PM COMPREHENSIVE HEARING TEST AUDIOLOGY ICD-10-CM H90.3 Sensorineural hearing loss, bilateral CECY TREVINO [facility] Encounter Template Text not used by [place] Assessments - Encounter Diagnoses This section includes the primary and secondary diagnoses documented for the Encounter. Date/Time Primary/Secondary Diagnosis Diagnosis Name Provider Source Feb 19, 2024 02:44 PM PRIMARY Sensorineural hearing loss, bilateral FRANKO TREVINO [facility] Feb 19, 2024 02:44 PM SECONDARY Encounter for fitting and adjustment of hearing aid FRANKO TREVINO [facility] Encounter Notes: All associated encounter notes This section contains the clinical notes associated to the Encounter. Date/Time Encounter Note(s) Provider Source Feb 19, 2024 02:08 PM AUDIOLOGY NOTE: LOCAL TITLE: Audiology Note STANDARD TITLE: AUDIOLOGY NOTE DATE OF NOTE: FEB 19, 2024@14:08 ENTRY DATE: FEB 19, 2024@14:08:55 AUTHOR: FRANKO TREVINO EXP COSIGNER: URGENCY: STATUS: COMPLETED AUDIOLOGIC EVALUATION: REFERRED BY: Self : 81 AGE: 38 REASON FOR EVALUATION & GENERAL MEDICAL HISTORY: [place] reports that his hearing has gotten worse recently. He is having much more difficulty hearing at home and is using captions on the TV. Medical history is unremarkable as it pertains to hearing health. TINNITUS: None reported. DIZZINESS/VERTIGO: None FAMILY HISTORY OF HEARING LOSS: Patient denies any family history of hearing loss. OTOLOGIC HISTORY: Patient denies any recent or chronic otitis media, otorrhea, otalgia or ear surgery. LAST HEARING EVALUATION: 2019 CURRENT HEARING AIDS: NA IMPRESSIONS: OTOSCOPY: Canals are both fully occluded. Cerumen was removed using irrigation. Post cerumen removal otoscopy was unremarkable. RELIABILITY: Good. SYMMETRY: Symmetrical DEGREE AND TYPE OF HEARING LOSS: Mild to severe, SNHL for both ears. WORD DISCRIMINATION: NU-6 RIGHT - 96% at 65dB HL LEFT - 96% at 65dB HL AUDIOGRAM Audiogram is available in this patient's electronic medical record. To view the actual audiogram, click the Tools menu, and choose Rehab Medicine then Audiogram Display. Hearing is stable for both ears. EDUCATION: Patient was counseled on the test results, benefits and limitations of amplification, and strategies to improve communication. RECOMMENDATIONS: PLAN: -Hearing evaluation in 2-3 years or sooner if a sudden change is noted -f/u per request PROCEDURES COMPLETED: Otoscopy Air Conduction Threshold Testing Bone Conduction Threshold Testing Speech Steel Pickler Threshold Testing Word Recognition Testing /roxy/ Alexandre Kessler CCC-A Maturity Checker Signed: 02/19/2024 14:44 FRANKO TREVINO [facility]
--- OUTSIDE RECORDS SUMMARY | 2024-03-11 17:03 | XMS_ITS | Encounter Summary ---
Author Name [facility] [place] [facility] [place] [facility] [place] Address [address] [place] [address] Support Name Relationship Address Phone KARLI HERNANDES Next of Kin [address] [place] [address] KARLI HERNANDES Emergency Contact [address] [place] [address] Selected Encounter This section includes the information on record at [place] for the Encounter. Date/Time Encounter Type Encounter Description Reason Pro vider Source Oct 28, 2023 01:16 PM Outpatient Encounter ADMIN PAT ACTIVTIES (MASNONCT) IHE Encounter Template Text not used by [place] Plan of Treatment: Future Appointments (+ 6 months) and Future Tests (+/- 45 days) The Plan of Treatment section includes future care activities for the patient from all [place] treatmentfacilities. This section includes future appointments and future orders which are active, pending or scheduled. Future Appointments This section includes appointments that were scheduled to occur 6 months from the date of the Encounter, up to a maximum of 20 appointments. The data comes from all [place] treatment facilities. Appointment Date/Time Appointment Type Appointme nt Facility Name Dec 21, 2023 01:00 PM AMBULATORY - REHAB MEDICIN E [facility] Feb 19, 2024 02:00 PM AMBULATORY - REHAB MEDICIN E [facility] Encounter Notes: All associated encounter notes This section contains the clinical notes associated to the Encounter. Date/Time Encounter Note(s) Provider Source Oct 28, 2023 01:16 PM ADMINISTRATIVE NOT E: LOCAL TITLE: Has Admin Note STANDARD TITLE: ADMINISTRATIVE NOTE DATE OF NOTE: OCT 28, 2023@13:16 ENTRY DATE: OCT 28, 2023@13:16:42 AUTHOR: ALVAREZ ZUÑIGA EXP COSIGNER: URGENCY: STATUS: COMPLETED Reason for call Clinic Name:[facility] Audio RTC Scheduled, Neg date and time w/pt /roxy/ ALVAREZ ZUÑIGA AMSA Signed: 10/28/2023 13:22 ALVAREZ ZUÑIGA [facility]
--- OUTSIDE RECORDS SUMMARY | 2024-03-11 17:03 | XMS_ITS | Continuity of Care Document ---
Author Name [facility] Organization [facility] Care Team Providers Care Television Producer Name Role Phone [facility] Unavailable Unavailable Problems Combined list of problems from Department of Defense and Veterans Affairs facilities. It does not include entries that were removed or entered in error. Problem Status Onset Date Problem Type Date of Resolution Comments Source superficial injury abrasion of left knee Inactive Condition [facility] cellulitis Inactive Condition [facility] visit for: examination of subpopulation Active Condition [facility] Diagnosis: ICD-10-CM H90.3 Sensorineural hearing loss, bilateral Active Diagnosis [facility] Medications Combined list of outpatient medications from Department of Defense and Veterans Affairs facilities.Medications provided include 1) outpatient medications from the last 15 months, and 2) patient-reported medications. Medication Details Route Status Patient Instructions Prescription Expires Prescription Number Last Dispense Date Ordering Provider Order Date Order Qty Source atovaquone- proguanil 250 mg-100 mg oral tablet 0 total refill(s ) Ordered No Facilit y Access brimonidine 0.2% ophthalmic solution brimonid ine 0.2% ophthalm ic solution Start Date: 08/26/20 Status: Ordered Ordered No Facilit y Access BUSPIRONE HCL (buspirone HCl), 5 MG, TABLET, ORAL, AVET PHARMACEUT, 500 ea. BOTTLE Active [id number] 2023 30 Pharmac y Data Transac tion Service Facilit y BUSPIRONE HCL (buspirone HCl), 5 MG, TABLET, ORAL, AVET PHARMACEUT, 500 ea. BOTTLE Active [id number] 2023 30 Pharmac y Data Transac tion Service Facilit y PRAZOSIN HCL (prazosin HCl), 1 MG, CAPSULE, ORAL, EXELAN PHARMACE, 1000 ea. BOTTLE Active [id number] 2023 90 Pharmac y Data Transac tion Service Facilit y PRAZOSIN HCL (prazosin HCl), 1 MG, CAPSULE, ORAL, LIFESTAR PHARMA, 100 ea. BOTTLE Active [id number] 2023 90 Pharmac y Data Transac tion Service Facilit y PRAZOSIN HCL (prazosin HCl), 1 MG, CAPSULE, ORAL, LIFESTAR PHARMA, 100 ea. BOTTLE Active [id number] 2023 30 Pharmac y Data Transac tion Service Facilit y PRAZOSIN HCL (prazosin HCl), 1 MG, CAPSULE, ORAL, LIFESTAR PHARMA, 100 ea. BOTTLE Active [id number] 2023 30 Pharmac y Data Transac tion Service Facilit y PRAZOSIN HCL (prazosin HCl), 1 MG, CAPSULE, ORAL, LIFESTAR PHARMA, 100 ea. BOTTLE Active [id number] 2023 30 Pharmac y Data Transac tion Service Facilit y terbinafine 250 mg oral tablet 0 total refill(s ) Ordered No Facilit y Access Allergies, Adverse Reactions, Alerts Combined list of allergies from Department of Defense and Veterans Affairs facilities. It does not include entries that were removed or entered in error. Substance Category Reaction Severity Reaction type Status Date Reported Comments Source No Known Allergies Drug allergy (disorder) active 0 [facility] NO KNOWN ALLERGIES Propensity to adverse reactions to substance Active Ambulatory Pharmacy Immunizations Combined list of available immunizations from the Department of Defense and Veterans Affairs facilities. Immunization Series Date Given Administered By Site Reaction Lot Number CVX Code Drug Stockbroker Status Comments Source meningococcal A,C,Y,W-135 (MCV4P) 2020 Left Arm [id number] 114 sanofi pasteur complet ed meningoco ccal A,C,Y,W-1 35 (MCV4P) 10/03/20 Given Ambulat ory Pharmac y typhoid Vi capsular polysaccharid e vac 2020 Left Arm [id number] 101 sanofi pasteur complet ed typhoid Vi capsular polysacch aride vac 10/03/20 Given Ambulat ory Pharmac y yellow fever vaccine 2020 Left Arm [id number] 37 sanofi pasteur complet ed yellow fever vaccine 10/03/20 Given Ambulat ory Pharmac y meningococcal A,C,Y,W-135 (MCV4P) 2020 [id number] 114 sanofi pasteur complet ed meningoco ccal A,C,Y,W-1 35 (MCV4P) 10/03/20 Given Ambulat ory Pharmac y typhoid Vi capsular polysaccharid e vac 2020 [id number] 101 sanofi pasteur complet ed typhoid Vi capsular polysacch aride vac 10/03/20 Given Ambulat ory Pharmac y yellow fever vaccine 2020 [id number] 37 sanofi pasteur complet ed yellow fever vaccine 10/03/20 Given Ambulat ory Pharmac y yellow fever vaccine 1 2020 EDEL ROMO [id number] 37 Sanofi Pasteur (PMC) complet ed yellow fever vaccine DoD typhoid Vi capsular polysaccharid e vaccine 1 2020 EDEL ROMO [id number] 101 Sanofi Pasteur (PMC) complet ed typhoid Vi capsular polysacch aride vaccine DoD meningococcal polysaccharid e (groups A, C, Y and W-135) diphtheria toxoid conjugate vaccine (MCV4P) 1 2020 EDEL ROMO [id number] 114 Sanofi Pasteur (PMC) complet ed meningoco ccal polysacch aride (groups A, C, Y and W-135) diphtheri a toxoid conjugate vaccine (MCV4P) DoD COVID Vaccine Moderna 2020 [id number] complet ed COVID Vaccine Moderna 09/14/20 Given Ambulat ory Pharmac y COVID Vaccine Moderna 2020 [id number] 207 complet ed COVID Vaccine Moderna 09/14/20 Given Ambulat ory Pharmac y SARS-COV-2 (COVID-19) vaccine, mRNA, spike protein, LNP, preservative free, 100 mcg or 50 mcg dose 2 2020 [id number] 207 Moderna [employer] (MOD) complet ed SARS-COV- 2 (COVID-19 ) vaccine, mRNA, spike protein, LNP, preservat lien free, 100 mcg or 50 mcg dose DoD COVID Vaccine Moderna 2020 [id number] 207 complet ed COVID Vaccine Moderna 08/17/20 Given Ambulat ory Pharmac y COVID Vaccine Moderna 2020 [id number] 207 complet ed COVID Vaccine Moderna 08/17/20 Given Ambulat ory Pharmac y SARS-COV-2 (COVID-19) vaccine, mRNA, spike protein, LNP, preservative free, 100 mcg or 50 mcg dose 1 2020 [id number] 207 [facility] [place] ([facility]) complet ed SARS-COV- 2 (COVID-19 ) vaccine, mRNA, spike protein, LNP, preservat lien free, 100 mcg or 50 mcg dose DoD influenza, seasonal, injectable 2016 [id number] 141 [employer] complet ed influenza , seasonal, injectabl e 05/07/17 Given Ambulat ory Pharmac y Influenza, seasonal, injectable 1 2016 [id number] 141 [employer] (CSL) complet ed Influenza , seasonal, injectabl e DoD influenza, seasonal, injectable 2015 [id number] 141 [employer]ring complet ed influenza , seasonal, injectabl e 04/26/16 Given Ambulat ory Pharmac y influenza, seasonal, injectable 2015 [id number] 141 [employer] complet ed influenza , seasonal, injectabl e 04/26/16 Given Ambulat ory Pharmac y Influenza, seasonal, injectable 1 2015 [id number] 141 CS [employer] (CSL) complet ed Influenza , seasonal, injectabl e DoD influenza, seasonal, injectable-pf 2014 [id number] 140 [employer]Smith[employer] complet ed influenza , seasonal, injectabl e-pf 06/16/15 Given Ambulat ory Pharmac y influenza, seasonal, injectable-pf 2014 [id number] 140 Gl[employer]oSmithK[employer] ne complet ed influenza , seasonal, injectabl e-pf 06/16/15 Given Ambulat ory Pharmac y Influenza, seasonal, injectable, preservative free 1 2014 [id number] 140 [employer] (SKB) complet ed Influenza , seasonal, injectabl e, preservat lien free DoD influenza, injectable, quadrivalent 2013 [id number] 158 [employer] complet ed influenza , injectabl e, quadrival ent 06/15/14 Given Ambulat ory Pharmac y influenza, injectable, quadrivalent 2013 [id number] 158 [employer] complet ed influenza , injectabl e, quadrival ent 06/15/14 Given Ambulat ory Pharmac y influenza, injectable, quadrivalent, contains preservative 1 2013 [id number] 158 [facility] [employer] (CS) complet ed influenza , injectabl e, quadrival ent, contains preservat lien DoD influenza, seasonal, injectable 2012 [id number] 141 [employer] complet ed influenza , seasonal, injectabl e 03/25/13 Given Ambulat ory Pharmac y influenza, seasonal, injectable 2012 [id number] [id number] 141 [employer] complet ed influenza , seasonal, injectabl e 03/25/13 Given Ambulat ory Pharmac y Influenza, seasonal, injectable 1 2012 [id number] 141 [facility] [employer] (CS) complet ed Influenza , seasonal, injectabl e DoD tetanus, diphtheria, acellular pertu is 2012 [id number] 2AA 115 GlaxoSmithKli ne complet ed tetanus, diphtheri a, acellular pertussis 09/03/12 Given Ambulat ory Pharmac y tetanus, diphtheria, acellular pertu is 2012 [id number] 2AA 115 GlaxoSmithK[employer] ne complet ed tetanus, diphtheri a, acellular pertussis 09/03/12 Given Ambulat ory Pharmac y tetanus toxoid, reduced diphtheria toxoid, and acellular pertu is vaccine, adsorbed 1 2012 [id number] 2AA 115 [facility] (B) complet ed tetanus toxoid, reduced diphtheri a toxoid, and acellular pertussis vaccine, adsorbed DoD influenza, seasonal, injectable-pf 2011 [id number] 140 sanofi pasteur complet ed influenza , seasonal, injectabl e-pf 04/20/12 Given Ambulat ory Pharmac y influenza, seasonal, injectable-pf 2011 [id number] 140 sanofi pasteur complet ed influenza , seasonal, injectabl e-pf 04/20/12 Given Ambulat ory Pharmac y Influenza, seasonal, injectable, preservative free 1 2011 [id number] 140 Sanofi Pasteur ([facility]) complet ed Influenza , seasonal, injectabl e, preservat lien free DoD influenza virus vaccine, live 2010 [id number] 111 [employer] comple t ed influenza virus vaccine, live 04/13/11 Given Ambulat ory Pharmac y influenza virus vaccine, live 2010 [id number] 111 [employer] comple t ed influenza virus vaccine, live 04/13/11 Given Ambulat ory Pharmac y influenza virus vaccine, live, attenuated, for intranasal use 1 2010 [id number] 111 [employer] (MED) complet ed influenza virus vaccine, live, attenuate d, for intranasa l use DoD tuberculin purified protein derivative 2009 [id number] 96 sanofi pasteur complet ed tuberculi n purified protein derivativ e 06/18/10 Given Ambulat ory Pharmac y meningococcal polysaccharid e (MPSV4) 2009 [id number] 32 Unknown complet ed meningoco ccal polysacch aride (MPSV4) 03/16/10 Given Ambulat ory Pharmac y anthrax vaccine 2009 [id number] 24 Unknown complet ed anthrax vaccine 03/16/10 Given Ambulat ory Pharmac y influenza virus vaccine,split 2009 [id number] 15 Unknown complet ed influenza virus vaccine,s plit 03/16/10 Given Ambulat ory Pharmac y meningococcal polysaccharid e (MPSV4) 2009 [id number] 32 Unknown complet ed meningoco ccal polysacch aride (MPSV4) 03/16/10 Given Ambulat ory Pharmac y anthrax vaccine 2009 [id number] 24 Unknown complet ed anthrax vaccine 03/16/10 Given Ambulat ory Pharmac y influenza virus vaccine,split 2009 [id number] 15 Unknown complet ed influenza virus vaccine,s plit 03/16/10 Given Ambulat ory Pharmac y influenza virus vaccine, split virus (incl. purified surface antigen)-reti red CODE 1 2009 [id number] 15 Unknown (UNK) comple t ed influenza virus vaccine, split virus (incl. purified surface antigen)- retired CODE DoD anthrax vaccine 3 2009 [id number] 24 Unknown (UNK) comple t ed anthrax vaccine DoD meningococcal polysaccharid e vaccine (MPSV4) 1 2009 [id number] 32 Unknown (UNK) comple t ed meningoco ccal polysacch aride vaccine (MPSV4) DoD anthrax vaccine 2009 [id number] 24 [employer] complet ed anthrax vaccine 08/01/09 Given Ambulat ory Pharmac y vaccinia (smallpox) vaccine 2009 VV04-00 3A 75 Unknown complet ed vaccinia (smallpox ) vaccine 08/01/09 Given Ambulat ory Pharmac y vaccinia (smallpox) vaccine 2009 VV04-00 3A 75 Unknown complet ed vaccinia (smallpox ) vaccine 08/01/09 Given Ambulat ory Pharmac y anthrax vaccine 2009 [id number] 24 [employer] complet ed anthrax vaccine 08/01/09 Given Ambulat ory Pharmac y anthrax vaccine 2 2009 [id number] 24 [employer] ([facility]) complet ed anthrax vaccine DoD vaccinia (smallpox) vaccine 1 2009 VV04-00 3A 75 Unknown (UNK) complet ed vaccinia (smallpox ) vaccine DoD influenza virus vaccine,split 2008 [id number] 1A 15 Unknown complet ed influenza virus vaccine,s plit 06/26/09 Given Ambulat ory Pharmac y anthrax vaccine 2008 [id number] 24 [employer] complet ed anthrax vaccine 06/26/09 Given Ambulat ory Pharmac y tuberculin purified protein derivative 2008 [id number] 96 Unknown complet ed tuberculi n purified protein derivativ e 06/26/09 Given Ambulat ory Pharmac y anthrax vaccine 2008 [id number] 24 [employer] complet ed anthrax vaccine 06/26/09 Given Ambulat ory Pharmac y influenza virus vaccine,split 2008 [id number] 1A 15 Unknown complet ed influenza virus vaccine,s plit 06/26/09 Given Ambulat ory Pharmac y influenza virus vaccine, split virus (incl. purified surface antigen)-reti red CODE 1 2008 [id number] 1A 15 Unknown (UNK) complet ed influenza virus vaccine, split virus (incl. purified surface antigen)- retired CODE DoD anthrax vaccine 1 2008 [id number] 24 [employer] ([facility]) complet ed anthrax vaccine DoD typhoid Vi capsular polysaccharid e vac 2008 [id number] 101 Unknown complet ed typhoid Vi capsular polysacch aride vac 06/14/09 Given Ambulat ory Pharmac y Novel influenza-H1N 1-, injectable 2008 [id number] 1 127 Unknown complet ed Novel influenza -O9G0-95, injectabl e 06/14/09 Given Ambulat ory Pharmac y Novel influenza-H1N 1-09, injectable 2008 [id number] 1 127 Unknown complet ed Novel influenza -S6C9-84, injectabl e 06/14/09 Given Ambulat ory Pharmac y typhoid Vi capsular polysaccharid e vac 2008 [id number] 101 Unknown complet ed typhoid Vi capsular polysacch aride vac 06/14/09 Given Ambulat ory Pharmac y typhoid Vi capsular polysaccharid e vaccine 1 2008 [id number] 101 Unknown (UNK) comple t ed typhoid Vi capsular polysacch aride vaccine DoD Novel influenza-H1N 1-09, injectable 1 2008 [id number] 1 127 Unknown (UNK) complet ed Novel influenza -R4W5-23, injectabl e DoD varicella virus vaccine 1 2008 UNK 21 Unknown (UNK) Not Given varicella virus vaccine DoD hepatitis B adult vaccine 2008 [id number] 6AA 43 Unknown complet ed hepatitis B adult vaccine 08/31/08 Given Ambulat ory Pharmac y hepatitis B adult vaccine 2008 [id number] 6AA 43 Unknown complet ed hepatitis B adult vaccine 08/31/08 Given Ambulat ory Pharmac y hepatitis B vaccine, adult dosage 3 2008 [id number] 6AA 43 Unknown (UNK) complet ed hepatitis B vaccine, adult dosage DoD influenza virus vaccine, live 2007 [id number] 111 Unknown complet ed influenza virus vaccine, live 05/20/08 Given Ambulat ory Pharmac y influenza virus vaccine, live, attenuated, for intranasal use 1 2007 [id number] 111 Unknown (UNK) comple t ed influenza virus vaccine, live, attenuate d, for intranasa l use DoD influenza virus vaccine, live 2006 [id number] 111 Unknown complet ed influenza virus vaccine, live 05/07/07 Given Ambulat ory Pharmac y influenza virus vaccine, live 2006 [id number] 111 Unknown complet ed influenza virus vaccine, live 05/07/07 Given Ambulat ory Pharmac y influenza virus vaccine, live, attenuated, for intranasal use 1 2006 [id number] 111 Unknown (UNK) comple t ed influenza virus vaccine, live, attenuate d, for intranasa l use DoD hepatitis B adult vaccine 2006 [id number] 7AA 43 Unknown complet ed hepatitis B adult vaccine 09/12/06 Given Ambulat ory Pharmac y hepatitis A adult vaccine 2006 [id number] 5CA 52 Unknown complet ed hepatitis A adult vaccine 09/12/06 Given Ambulat ory Pharmac y hepatitis A adult vaccine 2006 [id number] 5CA 52 Unknown complet ed hepatitis A adult vaccine 09/12/06 Given Ambulat ory Pharmac y hepatitis B adult vaccine 2006 [id number] 7AA 43 Unknown complet ed hepatitis B adult vaccine 09/12/06 Given Ambulat ory Pharmac y hepatitis B vaccine, adult dosage 2 2006 [id number] 7AA 43 Unknown (UNK) complet ed hepatitis B vaccine, adult dosage DoD hepatitis A vaccine, adult dosage 2 2006 [id number] 5CA 52 Unknown (UNK) complet ed hepatitis A vaccine, adult dosage DoD influenza virus vaccine,split 2006 [id number] 3BA 15 Unknown complet ed influenza virus vaccine,s plit 08/09/06 Given Ambulat ory Pharmac y influenza virus vaccine, split virus (incl. purified surface antigen)-reti red CODE 1 2006 [id number] 3BA 15 Unknown (UNK) complet ed influenza virus vaccine, split virus (incl. purified surface antigen)- retired CODE DoD influenza virus vaccine,split 2004 [id number] 15 Unknown complet ed influenza virus vaccine,s plit 06/14/05 Given Ambulat ory Pharmac y influenza virus vaccine,split 2004 [id number] 15 Unknown complet ed influenza virus vaccine,s plit 06/14/05 Given Ambulat ory Pharmac y influenza virus vaccine, split virus (incl. purified surface antigen)-reti red CODE 1 2004 [id number] 15 Unknown (UNK) comple t ed influenza virus vaccine, split virus (incl. purified surface antigen)- retired CODE DoD hepatitis B adult vaccine 2002 UNK 43 Unknown complet ed hepatitis B adult vaccine 12/21/02 Given Ambulat ory Pharmac y hepatitis B adult vaccine 2002 UNK 43 Unknown complet ed hepatitis B adult vaccine 12/21/02 Given Ambulat ory Pharmac y hepatitis B vaccine, adult dosage 1 2002 UNK 43 Unknown (UNK) comple t ed hepatitis B vaccine, adult dosage DoD meningococcal polysaccharid e (MPSV4) 2001 UNK 32 Unknown complet ed meningoco ccal polysacch aride (MPSV4) 12/17/01 Given Ambulat ory Pharmac y measles/mumps /rubella virus vaccine 2001 UNK 03 Unknown complet ed measles/m umps/rube lla virus vaccine 12/17/01 Given Ambulat ory Pharmac y tetanus-dipht h toxoids (Td) adult/adol 2001 UNK 09 Unknown complet ed tetanus-d iphth toxoids (Td) adult/ado l 12/17/01 Given Ambulat ory Pharmac y poliovirus vaccine, inactivated 2001 UNK 10 Unknown complet ed polioviru s vaccine, inactivat ed 12/17/01 Given Ambulat ory Pharmac y poliovirus vaccine, inactivated 2001 UNK 10 Unknown complet ed polioviru s vaccine, inactivat ed 12/17/01 Given Ambulat ory Pharmac y meningococcal polysaccharid e (MPSV4) 2001 UNK 32 Unknown complet ed meningoco ccal polysacch aride (MPSV4) 12/17/01 Given Ambulat ory Pharmac y tuberculin purified protein derivative 2001 UNK 96 Unknown complet ed tuberculi n purified protein derivativ e 12/17/01 Given Ambulat ory Pharmac y tetanus-dipht h toxoids (Td) adult/adol 2001 UNK 09 Unknown complet ed tetanus-d iphth toxoids (Td) adult/ado l 12/17/01 Given Ambulat ory Pharmac y measles/mumps /rubella virus vaccine 2001 UNK 03 Unknown complet ed measles/m umps/rube lla virus vaccine 12/17/01 Given Ambulat ory Pharmac y measles, mumps and rubella virus vaccine 1 2001 UNK 03 Unknown (UNK) comple t ed measles, mumps and rubella virus vaccine DoD tetanus and diphtheria toxoids, adsorbed, preservative free, for adult use (2 Lf of tetanus toxoid and 2 Lf of diphtheria toxoid) 1 2001 UNK 09 Unknown (UNK) comple t ed tetanus and diphtheri a toxoids, adsorbed, preservat lien free, for adult use (2 Lf of tetanus toxoid and 2 Lf of diphtheri a toxoid) DoD poliovirus vaccine, inactivated 1 2001 UNK 10 Unknown (UNK) comple t ed polioviru s vaccine, inactivat ed DoD meningococcal polysaccharid e vaccine (MPSV4) 1 2001 UNK 32 Unknown (UNK) comple t ed meningoco ccal polysacch aride vaccine (MPSV4) DoD hepatitis A adult vaccine 2001 [id number] 52 [employer] complet ed hepatitis A adult vaccine 07/17/01 Given Ambulat ory Pharmac y tetanus-dipht h toxoids (Td) adult/adol 2001 [id number] 09 [employer] complet ed tetanus-d iphth toxoids (Td) adult/ado l 07/17/01 Given Ambulat ory Pharmac y influenza virus vaccine,split 2001 [id number] 15 Unknown complet ed influenza virus vaccine,s plit 07/17/01 Given Ambulat ory Pharmac y influenza virus vaccine,split 2001 [id number] 15 Unknown complet ed influenza virus vaccine,s plit 07/17/01 Given Ambulat ory Pharmac y hepatitis A adult vaccine 2001 [id number] 52 [employer] complet ed hepatitis A adult vaccine 07/17/01 Given Ambulat ory Pharmac y tetanus-dipht h toxoids (Td) adult/adol 2001 [id number] 09 [employer] complet ed tetanus-d iphth toxoids (Td) adult/ado l 07/17/01 Given Ambulat ory Pharmac y tetanus and diphtheria toxoids, adsorbed, preservative free, for adult use (2 Lf of tetanus toxoid and 2 Lf of diphtheria toxoid) 0 2001 [id number] 09 [employer] (AVB) complet ed tetanus and diphtheri a toxoids, adsorbed, preservat lien free, for adult use (2 Lf of tetanus toxoid and 2 Lf of diphtheri a toxoid) DoD influenza virus vaccine, split virus (incl. purified surface antigen)-reti red CODE 0 2001 [id number] 15 Unknown (UNK) comple t ed influenza virus vaccine, split virus (incl. purified surface antigen)- retired CODE DoD hepatitis A vaccine, adult dosage 1 2001 [id number] 52 [employer] (AVB) complet ed hepatitis A vaccine, adult dosage DoD measles/mumps /rubella virus vaccine 1989 UNK 03 Unknown complet ed measles/m umps/rube lla virus vaccine 01/14/90 Given Ambulat ory Pharmac y poliovirus vaccine, live, oral 1989 UNK 02 Unknown complet ed polioviru s vaccine, live, oral 01/14/90 Given Ambulat ory Pharmac y measles/mumps /rubella virus vaccine 1989 UNK 03 Unknown complet ed measles/m umps/rube lla virus vaccine 01/14/90 Given Ambulat ory Pharmac y poliovirus vaccine, live, oral 1989 UNK 02 Unknown complet ed polioviru s vaccine, live, oral 01/14/90 Given Ambulat ory Pharmac y trivalent poliovirus vaccine, live, oral 0 1989 UNK 02 Unknown (UNK) comple t ed trivalent polioviru s vaccine, live, oral DoD measles, mumps and rubella virus vaccine 0 1989 UNK 03 Unknown (UNK) comple t ed measles, mumps and rubella virus vaccine DoD adenovirus vaccine, type 7, live, oral 1989 UNK 55 Unknown complet ed adenoviru s vaccine, type 7, live, oral 01/12/90 Given Ambulat ory Pharmac y adenovirus vaccine, type 4, live, oral 1989 UNK 54 Unknown complet ed adenoviru s vaccine, type 4, live, oral 01/12/90 Given Ambulat ory Pharmac y meningococcal polysaccharid e (MPSV4) 1989 UNK 32 Unknown complet ed meningoco ccal polysacch aride (MPSV4) 01/12/90 Given Ambulat ory Pharmac y adenovirus vaccine, type 7, live, oral 1989 UNK 55 Unknown complet ed adenoviru s vaccine, type 7, live, oral 01/12/90 Given Ambulat ory Pharmac y adenovirus vaccine, type 4, live, oral 1989 UNK 54 Unknown complet ed adenoviru s vaccine, type 4, live, oral 01/12/90 Given Ambulat ory Pharmac y meningococcal polysaccharid e (MPSV4) 1989 UNK 32 Unknown complet ed meningoco ccal polysacch aride (MPSV4) 01/12/90 Given Ambulat ory Pharmac y tuberculin purified protein derivative 1989 UNK 96 Unknown complet ed tuberculi n purified protein derivativ e 01/12/90 Given Ambulat ory Pharmac y meningococcal polysaccharid e vaccine (MPSV4) 0 1989 UNK 32 Unknown (UNK) comple t ed meningoco ccal polysacch aride vaccine (MPSV4) DoD adenovirus vaccine, type 4, live, oral 0 1989 UNK 54 Unknown (UNK) comple t ed adenoviru s vaccine, type 4, live, oral DoD adenovirus vaccine, type 7, live, oral 0 1989 UNK 55 Unknown (UNK) comple t ed adenoviru s vaccine, type 7, live, oral DoD Encounters Combined list of: 1) Encounters from Department of Veterans Affairs facilities going back up to thelast 18 months. 2) Encounters from the Department of Defense facilities going back up to 280 months. Location Location Details Encounter Type Encounter Number Reason For Visit Attending Provider ADM Date DC Date Status Disposition Source Sydnie BURROWS [place], [place]([facility]) OUTPATIENT [id number] small pox eval ( C trp,07/13 70,CAV, MOB) JOSEPH MARTINS 08/10 Released w/o Limitations Sydnie [place]([facility]) Theater Facility OUTPATIENT [id number] 04/26 Released w/o Limitations Theater Facilit y [facility] [place]([facility]) TELE CONSULT [id number] Notes Entered by: ARTURO SCHWARTZ 25 Sep 2020 1157 ------- ------- ------- ------- -- SM REQUEST ING MEDICAT ION FOR HEMORRH OIDS TRES [place]O 09/25 [facility] [place]([facility]) [facility] [place] OUTPATIENT [id number] Notes Entered by: Araseli LOVELACE 03 Oct 2020 0648 ------- ------- ------- ------- -- KAYLEN SHERIFF 10/03 Released w/o Limitations [facility] [place] [place] OUTPATIENT [id number] Notes Entered by: ROLAND JACQUES 03 Oct 2020 1235 ------- ------- ------- ------- -- EDY MEDINA 10/03 Released w/o Limitations [facility] [place]([facility] ) [facility] [place] OUTPATIENT [id number] Notes Entered by: MIRA BHAKTA 05 Oct 2020 1431 ------- ------- ------- ------- -- ANTOINETTE ORTEGA 10/05 Released w/o Limitations [facility] [place] [place] OUTPATIENT [id number] Notes Entered by: Jv SCHMIDT 25 Apr 2021 0705 ------- ------- ------- ------- -- SINDY MALDONADO 04/25 Released w/o Limitations [facility] [place] [place] OUTPATIENT [id number] Notes Entered by: ELIE BERGERON 25 Apr 2021 0852 ------- ------- ------- ------- -- INDIGO HAN 04/25 Released w/o Limitations [facility] [place] [place] OUTPATIENT [id number] Notes Entered by: David MURRAY 25 Apr 2021 1343 ------- ------- ------- ------- -- DESHAWNCOLTON BRAVO 04/25 Released w/o Limitations [facility] [place] Outpatient Encounter [id number] 10/25 [facility] Out[facility] Encounter [id number] 10/27 [facility] COMPREHENS LIEN HEARING TEST [id number] Diagnos is: ICD-10- CM H90.3 Sensori neural hearing loss, bilater al
RAFIA TREVINO ICK R 02/18 [facility] Procedures Combined list of: 1) Procedures from Department of Veterans Affairs facilities going back up to thelast 18 months, not all VA non-surgical procedures are included; 2) All procedures from the Department of Defense facilities. Procedure Procedure Type Code Date Perfomer Comments Sourc e No data available for this section [facility] Clinical Social Work Individual Outpatient Counseling 30 Minutes Clinical Social Work Individual Outpatient Counseling 30 Minutes [id number] 2009 CAMRYN LOWRY [facility] Psychotherapy Individual Approximately 30 Minutes Psychotherapy Individual Approximately 30 Minutes [id number] 2008 REINIER HARPER [facility] Preventive Medicine Administration Of Health Risk Questionnaire Patient-Focused Preventive Medicine Administration Of Health Risk Questionnaire Patient-Focused 34644 KAYLEN VALADEZ DoD Vaccines Viral Yellow Fever Vaccines Viral Yellow Fever 18832 KAYLEN VALADEZ Yellow Fever; Series #: 1; 0.5 mL; SC; Left Arm; Mfg: [employer]; Lot: [id number]; VIS given (Charline: 10/12/2019). [facility] Typhoid Vaccine Vi Capsular Polysaccharide, For Intramus Use Typhoid Vaccine Vi Capsular Polysaccharide, For Intramus Use 74130 HANG VALADEZL Typhoid, ViCPs; Series #: 1; 0.5 mL; IM; Left Arm; Mfg: [employer]; Lot: [id number]; VIS given (Charline: 05/11/2019). [facility] Meningococcal Polysaccharide Diphtheria Toxoid Conjugate Vaccine Meningococcal Polysaccharide Diphtheria Toxoid Conjugate Vaccine 60828 KAYLEN VALADEZ Meningococcal MCV4P (Menactra); Series #: 1; 0.5 mL; IM; Left Arm; Mfg: Sanof[employer] Paste[employer]; Lot: [id number]; VIS given (Charline: 02/24/2019). DoD Immunization Administration By Injection, One Vaccine Immunization Administration By Injection, One Vaccine 65289 VALADEZ, KAYLEN DoD Immunization Administration By Injection, Each Additional Vaccine Immunization Administration By Injection, Each Additional Vaccine 55209 VALADEZ, KAYLEN DoD Spectacles Services Fitting Monofocal Except For Aphakia Spectacles Services Fitting Monofocal Except For Aphakia 74121 MARIO BHAKTA [facility] Threshold Audiogram (Pure Tone) Automated Threshold Audiogram (Pure Tone) Automated 0208T INDIGO VASQUEZ [facility] Adaptive Behavior A e ment System, 2nd Edition (ABAS-II) Adaptive Behavior Assessment System, 2nd Edition (ABAS-II) 28721 SINDY ARAGON PHQ9, GAD7 AND PCL5 ALL SCORED 0. SEVERITY NONE. DoD ADMINISTRATION OF PATIENT-FOCUSED HEALTH RISK ASSESSMENT INSTRUMENT (EG, HEALTH HAZARD APPRAISAL) WITH SCORING AND DOCUMENTATION, PER STANDARDIZED INSTRUMENT 2020 DoD PURE TONE AUDIOMETRY (THRESHOLD), AUTOMATED; AIR ONLY 2020 [facility] BRIEF EMOTIONAL/BEHAVIORA L ASSESSMENT (EG, DEPRESSION INVENTORY, ATTENTION-DEFICIT/H YPERACTIVITY DISORDER [ADHD] SCALE), WITH SCORING AND DOCUMENTATION, PER STANDARDIZED INSTRUMENT 2020 DoD FITTING OF SPECTACLES, EXCEPT FOR APHAKIA; MONOFOCAL 2020 DoD SCREENING TEST OF VISUAL ACUITY, QUANTITATIVE, BILATERAL 2020 DoD PURE TONE AUDIOMETRY (THRESHOLD); AIR ONLY 2009 [facility] INDIVIDUAL PSYCHOTHERAPY, INSIGHT ORIENTED, BEHAVIOR MODIFYING AND/OR SUPPORTIVE, IN AN OFFICE OR OUTPATIENT FACILITY, APPROXIMATELY 20 TO 30 MINUTES [id number] WITH THE PATIENT 2009 DoD SKIN TEST; TUBERCULOSIS, INTRADERMAL 2008 [facility] INFLUENZA VIRUS VACCINE, TRIVALENT (IIV3), SPLIT VIRUS, 0.5 ML DOSAGE, FOR INTRAMUSCULAR USE 2008 [facility] INDIVIDUAL PSYCHOTHERAPY, INSIGHT ORIENTED, BEHAVIOR MODIFYING AND/OR SUPPORTIVE, IN AN OFFICE OR OUTPATIENT FACILITY, APPROXIMATELY 20 TO 30 MINUTES [id number] WITH THE PATIENT 2008 [facility] OPHTHALMOLOGICAL SERVICES: MEDICAL EXAMINATION AND EVALUATION WITH INITIATION OF DIAGNOSTIC AND TREATMENT PROGRAM; INTERMEDIATE, NEW PATIENT 2002 [facility] OPHTHALMOLOGICAL SERVICES: MEDICAL EXAMINATION AND EVALUATION WITH INITIATION OF DIAGNOSTIC AND TREATMENT PROGRAM; INTERMEDIATE, NEW PATIENT 2001 [facility] Social History Combined list of available smoking, tobacco, and other social history from Department of Defense and Veterans Affairs facilities. Social History Type Response Date Comment Sourc e This section is an empty social history section. [facility] Assessment and Plan Combined list of future care activities from Department of Defense and Veterans Affairs facilities (e.g., assessment and plan notes, appointments, orders, and referrals). Additional future care activities may be listed in the Plan of Care section. Result Assessment and Plan Date Source Assessment and Plan No data available for this section 03/11/2024 Ambulatory Pharmacy Functional Status Combined list of recent functional and cognitive assessments recorded at Department of Defense and Veterans Affairs (VA).VA Functional [place] Measurement (FIM) Scale: 1 = Total Assistance (Subject = 0% +), 2 = Maximal Assistance (Subject = 25% +), 3 = Moderate Assistance (Subject = 50% +), 4 = Minimal Assistance (Subject = 75% +), 5 = Supervision, 6 = Modified [place] (Device), 7 = Complete [place] (Timely, Safely). Assessment Date/Time Source Assessment Type Assessment Skill Assessment Score Assessment Details No data available for this section
--- OUTSIDE RECORDS SUMMARY | 2024-03-11 17:04 | XMS_ITS | Encounter Summary ---
Author Organization [facility] Address [address] [place] [address] Care Team Providers Care Elementary Assistant Principal Name Role Phone Jeanne Gar MD Primary Care Provider [phone] Encounter Details Date Type Department Care Team (Latest Contact Info) Description 01/17/2022 Travel Social History Tobacco Use Types Packs/Day Years Used Date Smoking Tobacco: Never Smokeless Tobacco: Never Alcohol Use Standard Drinks/Week Comments Not Asked 0 (1 standard drink = 0.6 oz pur e alcohol) Sex and Gender Information Value Date Recorded Sex Assigned at Not on file Gender Identity Male 10/31/2021 16:59 EDT Sexual Orientation Not on file COVID-19 Exposure Response Date Recorded In the last 10 days, have yo u been in contact with someone who was confirmed or suspected to have Coronavirus/COVID-19? No / Unsure 01/17/2022 10:09 EDT documented as of this encounter Plan of Treatment Not on file documented as of this encounter Visit Diagnoses Not on filedocumented in this encounter Care Teams Elementary Assistant Principal Relationship Specialty Start Date End Date Jeanne Gar MD [address] [place] [address] PCP - General 08/10/15 02/07/22 documented as of this encounter
--- OUTSIDE RECORDS SUMMARY | 2024-03-11 17:04 | XMS_ITS | Encounter Summary ---
Author Organization [facility] Address [address] [place] [address] Care Team Providers Care Business Services Director Name Role Phone Ricardo Taveras MD Primary Care Provider [phone] Reason for Visit * Reason Comments Follow-up Encounter Details Date Type Department Care Team (Late st Contact Info) Description 02/11/2022 9:15 EDT Office Visit [facility] Orthopedics & Podiatry [address], [address] [place], [place] [phone] [facility] [address] [facility] [address] [place], [place] [phone] Lisfranc's sprain, left, subsequent encounter (Primary Dx); Primary osteoarthritis of left foot Social History Tobacco Use Types Packs/Day Years [...] suspected to have Coronavirus/COVID-19? No / Unsure 02/11/2022 9:11 EDT documented as of this encounter Last Filed Vital Signs Vital Sign Reading Time Taken Comments Blood Pressure - - Pulse 77 02/11/2022 0912 EDT Temperature - - Respiratory Rate - - Oxygen Saturation 99% 02/11/2022 0912 EDT Inhaled Oxygen Concentration - - Weight - - Height - - Body Mass Index - - documented in this encounter Progress Notes * Ghazal Schafer RN - 02/11/2022914 EDT Yordan presents today for follow up left foot pain. MRI 02/08/22. * Carolyn Ashley DPM - 02/11/2022914 EDT Chief Complaint Patient presents with ??? Left Foot - Follow-up The primary encounter diagnosis was Lisfranc's sprain, left, subsequent encounter. A diagnosis of Primary osteoarthritis of left foot was also pertinent to this visit. HPI 36-year-old male presents for follow-up evaluation of intermittent left midfoot pain which started at the end of September after running and presents with resolved pain to the left foot. Has stopped running and is occasionally using the compression band reports no difficulty with ambulation. Has MRI performed and is here today for review and discussion of care. Patient Active Problem List Diagnosis ??? Visual field defect ??? Optic nerve drusen ??? Migraine headache ??? Central loss of vision ??? Headache No past medical history on file. No past surgical history on file. Social History Tobacco Use ??? Smoking status: Never Smoker ??? Smokeless tobacco: Never Used Substance Use Topics ??? Alcohol use: Not on file Family History Problem Relation Age of Onset ??? Blindness Neg Hx ??? Glaucoma Neg Hx ??? Macular Degeneration Neg Hx ??? Cancer Neg Hx ??? Diabetes Neg Hx ??? Stroke Neg Hx ??? Thyroid Disease Neg Hx No current outpatient medications on file. No current facility-administered medications for this visit. Allergies Allergen Reactions ??? Doxycycline Review of Systems Musculoskeletal: Positive for gait problem and joint swelling. Skin: Negative. Neurological: Negative for weakness and numbness. Physical Exam no ecchymosis, resolved edema, no crepitus. Ortho Exam No pain upon palpation and compression along the intermetatarsal space between 1st metatarsal and 2nd metatarsal bases and none in between the medial cuneiform and intermediate cuneiform joint. No pain along the extensor hallucis longus or digitorum tendons. No pain along the tibialis anterior tendon. Neurologic Exam Protective sensation intact left foot Vascular Exam: DP/ PT 2/4 left foot with positive pedal hair with positive capillary refill time < 3 secs. The prior workup of the patient includes: Plain films - abnormal midfoot arthrosis EXAM/TECHNIQUE: MR FOOT WO CONTRAST LEFT 02/08/2022 7:30 AM ?? HISTORY: rule out lisfranc ligament injury; Foot pain, chronic, osseous injury suspected ?? COMPARISON: Left foot radiographs from an outside institution dated 12/12/2021. ?? Technique: Noncontrast routine multiplanar, multisequence MR imaging of the left midfoot, metatarsals and toes was performed. The hindfoot and ankle are excluded from the [id number]. ?? Findings: ?? There is indistinct increased signal involving the dorsal and main intraosseous components of the Lisfranc ligament complex compatible with a sprain injury without evidence for high-grade tear. The plantar component has a more normal appearance. ?? There is no evidence for fracture or healing fracture of the metatarsals or the visualized midfoot region. ?? The visualized tendons are intact with no tear seen. If there is concern for tear of the ankle region tendon groups, dedicated MR of the ankle is recommended to evaluate for this possibility. ?? Mild degenerative changes are present at the 1st metatarsophalangeal joint and hallucal-sesamoid joints as well as at the tarsometatarsal joints and navicular- cuneiform joints. There is a minimal size effusion in the first MTP joint. ?? No sizable Hu neuroma is visualized. ?? The visualized intrinsic foot musculature has an unremarkable appearance. ?? IMPRESSION ?? 1. Features compatible with Lisfranc ligament sprain injury, as detailed above. 2. No evidence for fracture or healing fracture of the metatarsals or visualized midfoot region. 3. Mild degenerative changes at the 1st MTP joint and hallucal-sesamoid joints as well as at the tarsometatarsal joints and navicular-cuneiform joints. 4. Additional findings and details as above. Assessment/Plan: 1. Foot pain, left 2. Lisfranc's sprain, left, subsequent encounter Reviewed the MRI images with the patient in detail and recommend custom molded orthotics. I was going to offer offloading of the left foot for 4-6 weeks if he was still symptomatic but he does not have any pain today. He would like to have his physical therapist make the orthotics and if they cant, he will call and I can send another referral to our physical therapy here in [place]. [phone] [facility] Physical therapy [facility] [place], [place] 3. Midfoot Arthrosis Ibuprofen as needed or possible steroid injection in the future. Follow up PRN. Carolyn Ashley DPM, [facility] [place], [place] Other Orders Placed This Visit Procedures ??? ORTHOTICS documented in this encounter Plan of Treatment Not on file documented as of this encounter Visit Diagnoses Diagnosis Lisfranc's sprain, left, subsequent encounter- Primary Primary osteoarthritis of left foot documented in this encounter Orders General Supply Count Last Ordered Date First Or dered Date ORTHOTICS 1 02/11/2022 documented in this encounter Care Teams Business Services Director Relationship Specialty Start Date End Date Ricardo Taveras MD [address] [place] [address] PCP - General 02/08/22 documented as of this encounter
--- OUTSIDE RECORDS SUMMARY | 2024-03-11 17:04 | XMS_ITS | Encounter Summary ---
Author Organization [facility] Address [address] [place] [address] Care Team Providers Care Senior Grant Writer Name Role Phone Jeanne Gar MD Primary Care Provider [phone] Reason for Visit * Reason Comments New Patient Visit Pain * Referral (Routine) - Authorized Specialty Diagnoses / Procedures [facility] Referred To Contact Orthopedic Surgery Diagnoses Left foot pain Jacquelyn Johnson, PROCESSING INSPECTOR [address] [facility] [address] [place] [address] Elena Lobato, DPM [address] [facility] [address] [place] [address] Referral ID Status Reason Start Date Expiration Date V isits Requested Visits Authorized [id number] Authorized 1 1 Encounter Details Date Type Department Care Team (Late st Contact Info) Description 12/12/2021 10:30 EDT Office Visit [facility] Orthopedics & Podiatry [address] [place], [place] [phone] Carolyn Ashley DPLazaro [address] [facility] [address] [place], [place] [phone] Foot pain, left (Primary Dx); Lisfranc's sprain, left, initial encounter; Arthrosis of left midfoot Social History Tobacco Use Types Packs/Day Years [...] Recorded In the last 10 days, have sujatha u been in contact with someone who was confirmed or suspected to have Coronavirus/COVID-19? No / Unsure 12/12/2021 10:32 EDT documented as of this encounter Last Filed Vital Signs Vital Sign Reading Time Taken Comments Blood Pressure - - Pulse 64 12/12/2021 1032 EDT Temperature 36.6 ??C (97.9 ??F) 12/12/2021 1032 EDT Respiratory Rate - - Oxygen Saturation 98% 12/12/2021 103 EDT Inhaled Oxygen Concentration - - Weight - - Height - - Body Mass Index - - documented in this encounter Patient Instructions * Patient Instructions* Carolyn Ashley DPM - 12/12/2021 10:30 EDT Ankle sleeve (compression) at [employer] Lisfranc's sprain documented in this encounter Ordered Prescriptions Prescription Sig Dispensed Refills Start Date End Da te naproxen (NAPROSYN) 500 mg tablet Take 1 Tablet by mouth 2 times daily with breakfast and dinner for 30 days. 60 Tablet 12/12/2021 01/11/2022 documented in this encounter Progress Notes * Ghazal Schafer RN - 12/12/2021 1030 EDT Yordan presents today as a new patient for left foot pain. Worsening foot pain, now constant. Worse with running. No recent xrays. * Carolyn Ashley DPM - 12/12/2021 1030 EDT Yordan Weston is being seen as a consultation from Dr. Johnson. Chief Complaint Patient presents with ??? Left Foot - New Patient Visit, Pain The primary encounter diagnosis was Foot pain, left. Diagnoses of Lisfranc's sprain, left, initial encounter and Arthrosis of left midfoot were also pertinent to this visit. HPI 36-year-old male presents for evaluation of intermittent left midfoot pain which started at the endoseptember after running.patient states that is it is not abnormal for him to run as he normally runs2-3 miles on a daily basis because he is in the [employer]. Patient states that he stopped running for approximately 3 to 4 weeks and during that time the pain resolved. He then started running again and the pain came back describes the pain as hot and sharp when it occurs and today presents with a pain level of 3. He states that pain increases if any direct contact occurs. Questioned the patient aboutthis type of contact he states that his dog has stepped on the top of his foot which has caused an increase in pain at that time to a level of 7-8. Denies injury. Denies any other self treatment. Patient Active Problem List Diagnosis ??? Visual field defect ??? Optic nerve drusen ??? Migraine headache ??? Central loss of vision ??? Headache History reviewed. No pertinent past medical history. History reviewed. No pertinent surgical history. Social History Tobacco Use ??? Smoking status: Never Smoker ??? Smokeless tobacco: Never Used Substance Use Topics ??? Alcohol use: Not on file Family History Problem Relation Age of Onset ??? Blindness Neg Hx ??? Glaucoma Neg Hx ??? Macular Degeneration Neg Hx ??? Cancer Neg Hx ??? Diabetes Neg Hx ??? Stroke Neg Hx ??? Thyroid Disease Neg Hx Current Outpatient Medications Medication Sig Dispense Refill ??? naproxen (NAPROSYN) 500 mg tablet Take 1 Tablet by mouth 2 times daily with breakfast and dinner for 30 days. 60 Tablet 0 No current facility-administered medications for this visit. Allergies Allergen Reactions ??? Doxycycline Review of Systems Musculoskeletal: Positive for gait problem and joint swelling. Skin: Negative. Neurological: Negative for weakness and numbness. Physical Exam no ecchymosis, mild edema, no crepitus. Ortho Exam pain upon palpation and compression along the intermetatarsal space between 1st metatarsal and 2nd metatarsal bases and in between the medial cuneiform and intermediate cuneiform joint. Nopain along the extensor hallucis longus or digitorum tendons. No pain along the tibialis anterior tendon. Neurologic Exam Protective sensation intact left foot The prior workup of the patient includes: Plain films - abnormal midfoot arthrosis XRAYS performed on 12/12/2021: INDICATION: left foot pain ?? TECHNIQUE: 3 views left foot ?? COMPARISON: None. ?? FINDINGS: The bony alignment is anatomic. No acute fracture is detected. There is mild joint space narrowing of the great toe MTP joint and there is mild joint space noted throughout the interphalangeal joints. No erosions are detected. ?? IMPRESSION Mild forefoot arthrosis. I have independently reviewed the xrays with the patient and there is no diastasis along the lisfranc joint. Assessment/Plan: 1. Foot pain, left - XR FOOT LEFT 3 OR MORE VIEWS 2. Lisfranc's sprain, left, initial encounter Discussed x-rays with the patient today and there is no sign of fracture. There are signs of some mild midfoot arthrosis of there there is no diastases between the first metatarsal base and second metatarsal base where the patient has localized pain. Discussed treatment options as they pertain to the amount of pain the patient is experiencing. If the pain were severe, he would be immobilized in acam walker cast today and an MRI would be ordered. He is not in severe pain and discussed attempting to compress the joint with the use of an arch compression band that was dispensed to him today. Itis recommended that he purchase a compressive ankle sleeve to use daily. Patient is to decrease running at this time and should participate in nonstress loading activities to the foot such as swimming cycling etc. Recommend a 1 week course of oral anti- inflammatory her prescription for naproxen wassent to his pharmacy. After taking the medication for 1 week he may take the medication only as needed. Continue to wear his supportive shoes such as sneakers. 3. Midfoot Arthrosis RX for Naproxen 500mg 1 tablet po BID prn pain. Follow up in 1 month. Carolyn Ashley DPM, [facility] [place], [place] Other Orders Placed This Visit Procedures ??? XR FOOT LEFT 3 OR MORE VIEWS documented in this encounter Plan of Treatment Not on file documented as of this encounter Procedures Procedure Name Priority Date/Time Associated Diagnosis Comments XR FOOT LEFT 3 OR MORE VIEWS Routine 12/12/2021 10:42 EDT Foot pain, left documented in this encounter Results * XR FOOT LEFT 3 OR MORE VIEWS (12/12/2021 10:42 EDT) Anatomical Region Laterality Modality Lower Extremities Left Computed Radio graphy 12/12/2021 12:2 7 EDT Impressions 12/12/2021 12:27 EDT Mild forefoot arthrosis. Narrative 12/12/2021 12:27 EDT INDICATION: left foot pain TECHNIQUE: ??3 views left foot COMPARISON: None. FINDINGS: The bony alignment is anatomic. No acute fracture is detected. There is mild joint space narrowing of the great toe MTP joint and there is mild joint space noted throughout the interphalangeal joints. No erosions are detected. Procedure Note Shyam Singletary MD - 12/12/2021 INDICATION: left foot pain TECHNIQUE: 3 views left foot COMPARISON: None. FINDINGS: The bony alignment is anatomic. No acute fracture is detected.There is mild joint space narrowing of the great toe MTP joint and thereis mild joint space noted throughout the interphalangeal joints. Noerosions are detected. IMPRESSION Mild forefoot arthrosis. Carolyn Ashley DPLazaro IMG DIAGNOSTIC IMAGI NG ORDERABLES documented in this encounter Visit Diagnoses Diagnosis Foot pain, left- Primary Pain in limb Lisfranc's sprain, left, initial encounter Arthrosis of left midfoot documented in this encounter Care Teams Senior Grant Writer Relationship Specialty Start Date End Date Jeanne Gar MD [address] [place] [address] PCP - General 08/10/15 02/07/22 documented as of this encounter
--- OUTSIDE RECORDS SUMMARY | 2024-03-11 17:04 | XMS_ITS | Encounter Summary ---
Author Organization [facility] Address [address] [place] [address] Care Team Providers Care Grease Machine Worker Name Role Phone Jeanne Gar MD Primary Care Provider [phone] Reason for Referral * Radiology Services (Routine/Next Available) - Closed Specialty Diagnoses / Procedures Referred By Cindy garcia Referred To Contact Radiology Diagnoses Lisfranc's sprain, left, subsequent encounter Procedures MR FOOT WO CONTRAST LEFT Carolyn Ashley DPM [address] [facility] [address] [place] [address] [facility] Referral ID Status Reason Start Date Expiration Date Visits Re quested Visits Authorized [id number] Closed 01/15/2022 07/14/2022 1 1 Reason for Visit * Reason Comments Follow-up Encounter Details Date Type Department Care Team (Late st Contact Info) Description 01/17/2022 9:[address] [facility] Orthopedics & Podiatry [address] [place] [address] Carolyn Ashley DPM [address] [facility] [address] [place] [address] Lisfranc's sprain, left, subsequent encounter (Primary Dx); Foot pain, left; Arthrosis of left midfoot Social History Tobacco [...] 10:09 EDT documented as of this encounter Last Filed Vital Signs Vital Sign Reading Time Taken Comments Blood Pressure - - Pulse 66 01/17/2022 1009 EDT Temperature - - Respiratory Rate - - Oxygen Saturation 97% 01/17/2022 1009 EDT Inhaled Oxygen Concentration - - Weight - - Height - - Body Mass Index - - documented in this encounter Progress Notes * Socorro Barraza MA - 01/17/2022 0928 EDT Yordan presents today for left foot pain. He was last seen 12/12/21. Last xrays were 12/12/21. * Carolyn Ashley DPM - 01/17/2022 0982 EDT Chief Complaint Patient presents with ??? Left Foot - Follow-up The primary encounter diagnosis was Lisfranc's sprain, left, subsequent encounter. Diagnoses of Foot pain, left and Arthrosis of left midfoot were also pertinent to this visit. HPI 36-year-old male presents for follow-up evaluation of intermittent left midfoot pain which started at the end of September after running.patient states the pain has decreased since he was initially seen but he has stopped running. He has been wearing the compression arch band daily with has seemed to help. Although the pain has decreased, patient states that the pain is still there depending on his activity level. Pain level 4/5 on compression of the midfoot joints. Patient Active Problem List Diagnosis ??? Visual [...] lisfranc joint. Assessment/Plan: 1. Foot pain, left 2. Lisfranc's sprain, left, subsequent encounter Recommend MRI left foot due to the patient's inability to run secondary to increased pain. Rule outLisfranc's ligament tear versus osteoarthritis joint pain. If the MRI is positive for just midfoot arthritis we can attempt a steroid injection on his next visit. Can continue to use a compression band daily and remove at nighttime. 3. Midfoot Arthrosis Take naproxen 500mg 1 tablet po BID prn pain. Possible injection next visit. Follow up in 3 to 4 weeks Carolyn Ashley, SAVANNA, FACPM [facility] [place], [place] Other Orders Placed This Visit Procedures ??? MR FOOT WO CONTRAST LEFT documented in this encounter Plan of Treatment Not on file documented as of this encounter Results * MR FOOT WO CONTRAST LEFT (02/08/2022 8:10 EDT) Anatomical Region Laterality Modality Lower Extremities Left Magnetic Reson ance 02/08/2022 17:0 8 EDT Impressions 02/08/2022 17:08 EDT 1. Features compatible with Lisfranc ligament sprain injury, as detailed above. 2. No evidence for fracture or healing fracture of the metatarsals or visualized midfoot region. 3. Mild degenerative changes at the 1st MTP joint and hallucal-sesamoid joints as well as at the tarsometatarsal joints and navicular-cuneiform joints. 4. Additional findings and details as above. Narrative 02/08/2022 17:08 EDT EXAM/TECHNIQUE: MR FOOT WO CONTRAST LEFT ??02/08/2022 7:30 AM HISTORY: ?? rule out lisfranc ligament injury; Foot pain, chronic, osseous injury suspected COMPARISON: Left foot radiographs from an outside institution dated 12/12/2021. Technique: Noncontrast routine multiplanar, multisequence MR imaging of the left midfoot, metatarsals and toes was performed. The hindfoot and ankle are excluded from the uyrth-ts-gtaw. Findings: There is indistinct increased signal involving the dorsal and main intraosseous components of the Lisfranc ligament complex compatible with a sprain injury without evidence for high-grade tear. The plantar component has a more normal appearance. There is no evidence for fracture or healing fracture of the metatarsals or the visualized midfoot region. The visualized tendons are intact with no tear seen. If there is concern for tear of the ankle region tendon groups, dedicated MR of the ankle is recommended to evaluate for this possibility. Mild degenerative changes are present at the 1st metatarsophalangeal joint and hallucal-sesamoid joints as well as at the tarsometatarsal joints and navicular-cuneiform joints. There is a minimal size effusion in the first MTP joint. No sizable Hu neuroma is visualized. The visualized intrinsic foot musculature has an unremarkable appearance. Procedure Note Doug Stephen MD - 02/08/2022 EXAM/TECHNIQUE: MR FOOT WO CONTRAST LEFT 02/08/2022 7:30 AM HISTORY: rule out lisfranc ligament injury; Foot pain, chronic, osseous injurysuspected COMPARISON: Left foot radiographs from an outside institution dated 12/12/2021. Technique: Noncontrast routine multiplanar, multisequence MR imaging ofthe left midfoot, metatarsals and toes was performed. The hindfoot andankle are excluded from the tqhem-xw-pene. Findings: There is indistinct increased signal involving the dorsal and mainintraosseous components of the Lisfranc ligament complex compatible with asprain injury without evidence for high-grade tear. The plantar componenthas a more normal appearance. There is no evidence for fracture or healing fracture of the metatarsalsor the visualized midfoot region. The visualized tendons are intact with no tear seen. If there is concernfor tear of the ankle region tendon groups, dedicated MR of the ankle isrecommended to evaluate for this possibility. Mild degenerative changes are present at the 1st metatarsophalangeal jointand hallucal-sesamoid joints as well as at the tarsometatarsal joints andnavicular-cuneiform joints. There is a minimal size effusion in the firstMTP joint. No sizable Hu neuroma is visualized. The visualized intrinsic foot musculature has an unremarkableappearance. IMPRESSION 1. Features compatible with Lisfranc ligament sprain injury, as detailedabove. 2. No evidence for fracture or healing fracture of the metatarsals orvisualized midfoot region. 3. Mild degenerative changes at the 1st MTP joint and hallucal-sesamoidjoints as well as at the tarsometatarsal joints and navicular-cuneiformjoints. 4. Additional findings and details as above. Carolyn Ashley DPM IM MRI ORDERABLES documented in this encounter Visit Diagnoses Diagnosis Lisfranc's sprain, left, subsequent encounter- Primary Foot pain, left Pain in limb Arthrosis of left midfoot Lisfranc's sprain, left, subsequent encounter documented in this encounter Care Teams Grease Machine Worker Relationship Specialty Start Date End Date Jeanne Gar MD [address] [place] [id number] PCP - General 08/10/15 02/07/22 documented as of this encounter
--- OUTSIDE RECORDS SUMMARY | 2024-03-11 17:04 | XMS_ITS | Encounter Summary ---
Author Organization [facility] Address [address] [place] [address] Care Team Providers Care Mechanical And Auto Body Car Checker Name Role Phone Jeanne Gar MD Primary Care Provider [phone] Encounter Details Date Type Department Care Team (Latest Contact Info) Description 08/13/2015 10:01 EST - 08/13/2015 23:59 [facility] Hospital Encounter [facility] [address] [place] [address] Unknown, ProviderMD Discharge Disposition: Home or Self Care Social History Tobacco Use Types Packs/Day Years Used Date Smoking Tobacco: Never Smokeless Tobacco: Never Alcohol Use Standard Drinks/Week Comments Not Asked 0 (1 standard drink = 0.6 oz pur e alcohol) Sex and Gender Information Value Date Recorded Sex Assigned at Not on file Gender Identity Male 10/31/2021 16:59 EDT Sexual Orientation Not on file documented as of this encounter Discharge Disposition Disposition Code Departure Means Destination Home or Self Senior Living documented in this encounter Plan of Treatment Not on file documented as of this encounter Visit Diagnoses Not on filedocumented in this encounter Care Teams Mechanical And Auto Body Car Checker Relationship Specialty Start Date End Date Jeanne Gar MD [address] [place] [address] PCP - General 08/10/15 02/07/22 documented as of this encounter
--- OUTSIDE RECORDS SUMMARY | 2024-03-11 17:04 | XMS_ITS | Encounter Summary ---
Author Organization [facility] Address [address] [place] [address] Care Team Providers Care Drying Room Attendant Name Role Phone Ricardo Taveras MD Primary Care Provider [phone] Reason for Visit * Reason Onset Date Comments Other 02/17/2022 orthotics Encounter Details Date Type Department Care Team (Late st Contact Info) Description 02/17/2022 Telephone [facility] Orthopedics & Podiatry [address], [address] [place] [address] Ghazal Schafer, RN Other (orthotics) Social History Tobacco Use Types Packs/Day Years [...] 9:11 EDT documented as of this encounter Miscellaneous Notes * Telephone Encounter - Ghazal Schafer, SANJEEV - 02/17/2022 0787 EDT Received voicemail message from Yoradn. States he had Dr. Ashley send a referral for orthotics to a place that doesn't do them. Is looking for a referral to PT here to get orthotics. Referral placed to PT. Called Yordan to update. As he self identified left detailed message that referral had been placed and they would be in touch with him to scheduled. Asked that he call back with any questions. documented in this encounter Plan of Treatment Not on file documented as of this encounter Visit Diagnoses Diagnosis Lisfranc's sprain, left, subsequent encounter- Primary documented in this encounter Care Teams Drying Room Attendant Relationship Specialty Start Date End Date Ricardo Taveras MD [address] [place] [address] PCP - General 02/08/22 documented as of this encounter
--- OUTSIDE RECORDS SUMMARY | 2024-03-11 17:04 | XMS_ITS | Referral Summary ---
Author Organization [facility] Address [address] [place] [address] Care Team Providers Care Precast Molder Name Role Phone Ricardo Taveras MD Primary Care Provider [phone] Allergies Active Allergy Reactions Criticality Noted Date Comments Doxycycline 06/21/2018 Medications Medication Sig Dispensed Refills Start Date End Date Status Prazosin (MINIPRESS) 1 mg capsule Take 1 Capsule by mouth 3 times daily. 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 Headache 12/20/2012 Overview: ICD10 Update Auto Replacement Social History Tobacco Use Types Packs/Day Years Used Date Smoking Tobacco: Never Smokeless Tobacco: Never Alcohol Use Standard Drinks/Week Comments Not Asked 0 (1 standard drink = 0.6 oz pur e alcohol) Sex and Gender Information Value Date Recorded Sex Assigned at Not on file Gender Identity Male 10/31/2021 16:59 EDT Sexual Orientation Not on file Last Filed Vital Signs Vital Sign Reading Time Taken Comments Blood Pressure - - Pulse 88 11/05/2023 0850 EDT Temperature 36.6 ??C (97.9 ??F) 12/12/2021 1032 EDT Respiratory Rate - - Oxygen Saturation 95% 11/05/2023 0850 EDT Inhaled Oxygen Concentration - - Weight 79.4 kg (175 lb) 12/20/2012 1307 EDT Height 177.8 cm (5' 10) 12/20/2012 1307 EDT Body Mass Index 25.11 12/20/2012 1307 EDT Plan of Treatment Not on file Procedures Procedure Name Priority Date/Time Associated Diagnosis Comments HEPATITIS C AB W REFLEX TO HCV RNA BY PCR Routine 08/13/2020 8:55 EST from Last 3 Months or Most Recently Relevant to Health Maintenance Results * HEPATITIS C AB W REFLEX TO HCV RNA BY PCR (08/13/2020 8:55 EST) Hep C Antibody Negative Negative 08/14/2020 11:30 EST [facility] Blood VENOUS BLOOD / Unknown 08/13/2020 8:55 EST 08/13/2020 22:18 EST Provider Outr Resulting Lab CHEMISTRY & BLOOD GAS ORDERABLES [facility] [address] [place] [address] from Last 3 Months or Most Recently Relevant to Health Maintenance Care Teams Precast Molder Relationship Specialty Start Date End Date Ricardo Taveras MD [address] [place] [address] PCP - General 02/08/22
--- OUTSIDE RECORDS SUMMARY | 2024-03-11 17:04 | XMS_ITS | Encounter Summary ---
Author Organization [facility] Address [address] [place] [address] Care Team Providers Care Action Installer Name Role Phone Unavailable Primary Care Provider Unavailabl e Encounter Details Date Type Department Care Team (Late st Contact Info) Description 10/06/2006 Before PRISM Converted Visit (Maple) [facility] - [facility] conversion [address] [place] [address] Adalberto Magaña* Social History Tobacco Use Types Packs/Day Years Used Date Smoking Tobacco: Never Assessed Sex and Gender Information Value Date Recorded Sex Assigned at Not on file Gender Identity Male 10/31/2021 16:59 EDT Sexual Orientation Not on file documented as of this encounter Consult Notes * Lino Herrera Plaster Mixer - 05/15/2009 0900 EST DIVISION OF OPHTHALMOLOGY [facility] CONSULTATION - 10/06/2006 iRck Asher O.D. [address] [place] [address] Asher: you very much for referring Yordan Weston for neuro-ophthalmic consultation. Mr. Weston states that you noted some optic nerve abnormalities a year ago on examination, although he has been asymptomatic in terms of any vision problems. He states that on his most recent visit with you, you confirmed that you still note some abnormalities and that visual field testing confirmed some visual field defects. The patient states that he developed migraine with aura several months ago but that that problem has been decreasing in frequency since then. He reports that he has been a member of the [employer] for the past 4 years. Interestingly, he has not been deployed and states the reason for that is that he had been having memory lapses. His past medical history is otherwise unremarkable. Visual acuity with his current correction is 20/20 in each eye. Pupils are 6 mm each. There is a trace relative afferent pupillary defect on the right. Color vision is mildly subnormal at 12/14 correct Ishihara plates for the right, 14/14 correct for the left. Gross confrontational verma are normal. Extraocular movements are normal. External examination is unremarkable. Anterior segment examination is normal. Dilated fundus examination a right optic nerve that is relatively cupless, has an elevated and full appearance, with numerous calcifications within the substance of the nerve fiber layer. The left optic nerve is more normal in appearance, although there are some rare calcifications that are noted as well. Cruz visual field was performed using the 24-2 program. For the right eye, this shows a nasal step. For the left eye, there is a superior paracentral defect. Dr. 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 The right is sufficiently bad enough to produce a very slight relative afferent defect and quite noticeable visual field defect. I discussed with the patient at length, thenature of this problem. I have recommended that he continue with you, as you have provided excellent care for him in the past, and undoubtedly will continueto do so in the future. I think he should see you yearly and that a visual field test yearly would be a reasonable approach to his problem. If I can answer any questions, please dont hesitate to call. Thank you for your kind referral of this pleasant and interesting patient. Sincerely, Signed by Adalberto Magaña MD 10/08/2006 13:01 Dwayne Magaña [facility] [phone] Care [place] [phone] [place], MD Adalberto Magaña MD [facility] [phone] Road Equipment Operator [place] [phone] - Adalberto Magaña MD P - glt Job ID: [id number] Document ID: [id number] cc: MD Rick Covington, OD* documented in this encounter Plan of Treatment Not on file documented as of this encounter Visit Diagnoses Not on filedocumented in this encounter
--- OUTSIDE RECORDS SUMMARY | 2024-03-11 17:04 | XMS_ITS | Encounter Summary ---
Author Organization [facility] Address [address] [place] [address] Care Team Providers Care Manager Meeting Name Role Phone Jeanne Gar MD Primary Care Provider [phone] Encounter Details Date Type Department Care Team (Late st Contact Info) Description 08/14/2015 Historical Results Only [facility] Radiology Results [address] [place] [id number] Shanda Ortiz NP [address] [facility] [address] [place] [phone] Social History Tobacco Use Types Packs/Day Years Used Date Smoking Tobacco: Never Smokeless Tobacco: Never Alcohol Use Standard Drinks/Week Comments Not Asked 0 (1 standard drink = 0.6 oz pur e alcohol) Sex and Gender Information Value Date Recorded Sex Assigned at Not on file Gender Identity Male 10/31/2021 16:59 EDT Sexual Orientation Not on file documented as of this encounter Plan of Treatment Not on file documented as of this encounter Procedures Procedure Name Priority Date/Time Associated Diagnosis Comments XR HAND RIGHT 3 OR MORE VIEWS 08/14/2015 8:05 EST documented in this encounter Results * XR HAND RIGHT 3 OR MORE VIEWS (08/14/2015 8:05 EST) Anatomical Region Laterality Modality Upper Extremities Right Other 08/14/2015 8:05 EST Narrative 08/14/2015 8:10 EST ? EXAM: RADIOLOGY/[id number]+VIEW ? EX. D/ (0950) ? CLINICAL INFORMATION: ? HAND INJURY, R/O FX ? Indication: Hand injury. Rule out fracture. ? Comparison: None. ? Technique: 3 views of the right hand were obtained. ? Findings: There is mild swelling of the hand soft tissues. No ? fracture or dislocation is identified. If there is continued clinical ? concern for occult fracture then 7-10 day followup radiographic ? examination is recommended. Alternatively, further evaluation could ? be performed with MRI as clinically indicated. ? Impression: ? 1. Soft tissue swelling. ? REPORT SIGNED IN OTHER VENDOR SYSTEM 08/14/2015 ?Reported By: Omid Cruz MD ? CC: ? Transcribed Date/Time: 08/14/2015 (0810) ? Carton Forming Machine Operator: ? Printed Date/Time: 12/23/2018 (1433) ? PAGE 1 ? Signed Report ? Procedure Note Omid Cruz MD - 05/18/2019 EXAM: RADIOLOGY/[id number]-2+VIEW EX. D/ (0950) CLINICAL INFORMATION: HAND INJURY, R/O FX Indication: Hand injury. Rule out fracture. Comparison: None. Technique: 3 views of the right hand were obtained. Findings: There is mild swelling of the hand soft tissues. No fracture or dislocation is identified. If there is continuedclinical concern for occult fracture then 7-10 day followup radiographic examination is recommended. Alternatively, further evaluation could be performed with MRI as clinically indicated. Impression: 1. Soft tissue swelling. REPORT SIGNED IN OTHER VENDOR SYSTEM 08/14/2015 Reported By: Omid Cruz MD CC: Transcribed Date/Time: 08/14/2015 (0810) Carton Forming Machine Operator: Printed Date/Time: 12/23/2018 (3522) PAGE 1 Signed Report Shanda Ortiz CUSTOMS COMPLIANCE DIRECTOR IMG DIAGNOSTIC IMAGI NG ORDERABLES documented in this encounter Visit Diagnoses Not on filedocumented in this encounter Care Teams Manager Meeting Relationship Specialty Start Date End Date Jeanne Gar MD [address] [place] [address] PCP - General 08/10/15 02/07/22 documented as of this encounter
--- OUTSIDE RECORDS SUMMARY | 2024-03-11 17:04 | XMS_ITS | Encounter Summary ---
Author Organization [facility] Address [address] [place] [address] Care Team Providers Care Biostatistics Director Name Role Phone Jeanne Gar MD Primary Care Provider [phone] Encounter Details Date Type Department Care Team (Late st Contact Info) Description 08/13/2015 Historical Results Only [facility] Radiology Results [address] [place] [address] Shanda Ortiz NP [address] [facility] [address] [place] [phone] Social History Tobacco Use Types Packs/Day Years [...] on filedocumented in this encounter Care Teams Biostatistics Director Relationship Specialty Start Date End Date Jeanne Gar MD [address] [place] [address] PCP - General 08/10/15 02/07/22 documented as of this encounter
--- OUTSIDE RECORDS SUMMARY | 2024-03-11 17:04 | XMS_ITS | Encounter Summary ---
Author Organization [facility] Address [address] [place] [address] Care Team Providers Care Optoelectronic Technician Name Role Phone Jeanne Gar MD Primary Care Provider [phone] Ricardo Taveras MD Primary Care Provider [phone] Encounter Details Date Type Department Care Team (Late st Contact Info) Description 08/13/[address] [facility] Pathology & Laboratory Medicine - [address] [address] Outr Resulting Lab, Provider Social History Tobacco Use Types Packs/Day Years [...] RNA BY PCR Routine 08/13/2020 8:55 EST documented in this encounter Results * HEPATITIS C AB W REFLEX TO HCV RNA BY PCR (08/13/2020 8:55 EST) Hep C Antibody Negative Negative 08/14/2020 11:30 EST [facility] Blood VENOUS BLOOD / Unknown 08/13/2020 8:55 EST 08/13/2020 22:18 EST Provider Outr Resulting Lab CHEMISTRY & BLOOD GAS ORDERABLES [facility] [address] [place] [address] documented in this encounter Visit Diagnoses Not on filedocumented in this encounter Care Teams Optoelectronic Technician Relationship Specialty Start Date End Date Jeanne Gar MD [address] [place] [address] PCP - General 08/10/15 02/07/22 Ricardo Taveras MD [address] [place] [address] PCP - General 02/08/22 documented as of this encounter
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
--- OUTSIDE RECORDS SUMMARY | 2024-03-11 17:04 | XMS_ITS | Encounter Summary ---
Author Organization [facility] Address [address] [place] [address] Care Team Providers Care Power Regulator Name Role Phone Unavailable Primary Care Provider Unavailabl e Encounter Details Date Type Department Care Team (Latest Contact Info) Description 10/06/2006 8:46 EDT - 10/06/2006 11:59 EDT Hospital Encounter [facility] [address] [place] [address] Adalberto Magaña* Discharge Disposition: Auto Discharge Social History Tobacco Use Types Packs/Day Years Used Date Smoking Tobacco: Never Assessed Sex and Gender Information Value Date Recorded Sex Assigned at Not on file Gender Identity Male 10/31/2021 16:59 EDT Sexual Orientation Not on file documented as of this encounter Discharge Disposition Disposition Code Departure Means Destination Auto Discharge documented in this encounter Plan of Treatment Not on file documented as of this encounter Visit Diagnoses Not on filedocumented in this encounter
--- OUTSIDE RECORDS SUMMARY | 2024-03-11 17:04 | XMS_ITS | Encounter Summary ---
Author Organization [facility] Address [address] [place] [address] Care Team Providers Care Fingernail Former Name Role Phone Ricardo Taveras MD Primary Care Provider [phone] Encounter Details Date Type Department Care Team (Latest Contact Info) Description 02/11/2022 Travel Social History Tobacco Use Types Packs/Day [...] 9:11 EDT documented as of this encounter Plan of Treatment Not on file documented as of this encounter Visit Diagnoses Not on filedocumented in this encounter Care Teams Fingernail Former Relationship Specialty Start Date End Date Ricardo Taveras MD [address] [place] [address] PCP - General 02/08/22 documented as of this encounter
--- OUTSIDE RECORDS SUMMARY | 2024-03-11 17:04 | XMS_ITS | Encounter Summary ---
Author Organization [facility] Address [address] [place] [address] Care Team Providers Care Sports Nutritionist Name Role Phone Jeanne Gar MD Primary Care Provider [phone] Encounter Details Date Type Department Care Team (Latest Contact Info) Description 12/12/2021 Travel Social History Tobacco Use Types Packs/Day [...] 10:32 EDT documented as of this encounter Plan of Treatment Not on file documented as of this encounter Visit Diagnoses Not on filedocumented in this encounter Care Teams Sports Nutritionist Relationship Specialty Start Date End Date Jeanne Gar MD [address] [place] [address] PCP - General 08/10/15 02/07/22 documented as of this encounter
--- OUTSIDE RECORDS SUMMARY | 2024-03-11 17:04 | XMS_ITS | Encounter Summary ---
Author Organization [facility] Address [address] [place] [address] Care Team Providers Care Plater Helper Name Role Phone Ricardo Taveras MD Primary Care Provider [phone] Reason for Visit * Reason Comments Follow-up Pain * Referral (Routine) - Authorized Specialty Diagnoses / Procedures Referred By Cindy garcia Referred To Contact Orthopedic Surgery Diagnoses Pain in left foot Jacquelyn Johnson, SR. DIRECTOR [address] [facility] [address] [place] [address] [facility] [address] [place] [address] Referral ID Status Reason Start Date Expiration Date V isits Requested Visits Authorized [id number] Authorized 10/27/2023 10/26/2024 1 1 Encounter Details Date Type Department Care Team (Late st Contact Info) Description 11/05/2023 8:45 EDT Office Visit [facility] Pod[facility]ry [address] [place], [place] [id number] [facility] [address] [facility] [address] [place] [address] Foot pain, left (Primary Dx); Foot pain, right; Arthrosis of left midfoot; Metatarsalgia of both feet Social History Tobacco Use Types Packs/Day Years Used Date Smoking Tobacco: Never Smokeless Tobacco: Never Alcohol Use Standard Drinks/Week Comments Not Asked 0 (1 standard drink = 0.6 oz pur e alcohol) Sex and Gender Information Value Date Recorded Sex Assigned at Not on file Gender Identity Male 10/31/2021 16:59 EDT Sexual Orientation Not on file documented as of this encounter Last Filed Vital Signs Vital Sign Reading Time Taken Comments Blood Pressure - - Pulse 88 11/05/2023 0850 EDT Temperature - - Respiratory Rate - - Oxygen Saturation 95% 11/05/2023 0850 EDT Inhaled Oxygen Concentration - - Weight - - Height - - Body Mass Index - - documented in this encounter Progress Notes * Carolyn Ashley, SAVANNA - 11/05/2023 0845 EDT Chief Complaint Patient presents with Left Foot - Follow-up The primary encounter diagnosis was Lisfranc's sprain, left, subsequent encounter. A diagnosis of Primary osteoarthritis of left foot was also pertinent to this visit. HPI 38-year-old male presents with chief complaint of left foot pain along the tarsometatarsal area left dorsal foot as well as bilateral foot pain along the balls of his feet. States that he has been running more in anticipation of his PT exam. He was wearing shoes that were non supportive and he did buy a pair of Hoka shoes that fit and feel well. He has only been wearing them for a day now. He does have a history of a lisfranc sprain with MRI performed on 02/08/2022 which showed Mild degenerative changes a the 1st MTP, hallucal-sesamoid joints, tarsometatarsal joints and navicular-cuneiform joints. Patient Active Problem List Diagnosis Visual field defect Optic nerve drusen Migraine headache Central loss of vision Headache No past medical history on file. No past surgical history on file. Social History Tobacco Use Smoking status: Never Smoker Smokeless tobacco: Never Used Substance Use Topics Alcohol use: Not on file Family History Problem Relation Age of Onset Blindness Neg Hx Glaucoma Neg Hx Macular Degeneration Neg Hx Cancer Neg Hx Diabetes Neg Hx Stroke Neg Hx Thyroid Disease Neg Hx No current outpatient medications on file. No current facility-administered medications for this visit. Allergies Allergen Reactions Doxycycline Review of Systems Musculoskeletal: Positive for gait problem and joint swelling. Skin: Negative. Neurological: Negative for weakness and numbness. Physical Exam no ecchymosis, resolved edema, no crepitus. Ortho Exam Pain localized to the left medial midfoot area along the cuneiform and navicular joint, no pain along the lisfranc joint, diffuse pain along the ball of the foot bilaterally. Neurologic Exam Protective sensation intact left foot Vascular Exam: DP/ PT 2/4 left and right foot with positive pedal hair with positive [...] hindfoot and ankle are excluded from the [id number]. Findings: There is indistinct increased signal involving [...] intrinsic foot musculature has an unremarkable appearance. IMPRESSION 1. Features compatible with Lisfranc ligament [...] left 2. Lisfranc's sprain, left, subsequent encounter No pain today. 3. Midfoot Arthrosis Discussed steroid injection today and attempted procedure but aborted prior to procedure due to syncope. Patient recovered well and recommend he apply ice, wear supportive shoes, and take Aleve or Advil twice a day for 3 days. 4. Metatarsalgia bilaterally Continue to wear HOKA shoes daily. Follow up 4 weeks. Carolyn Ashley DPM, [facility] [place], [place] documented in this encounter Plan of Treatment Not on file documented as of this encounter Visit Diagnoses Diagnosis Foot pain, left- Primary Pain in limb Foot pain, right Pain in limb Arthrosis of left midfoot Metatarsalgia of both feet Enthesopathy of ankle and tarsus, unspecified documented in this encounter Historical Medications * This list may reflect changes made after this encounter. Medication Sig Dispensed Refills Start Date End Date Prazosin (MINIPRESS) 1 mg capsule Take 1 Capsule by mouth 3 times daily. 10/28/2023 added in this encounter Care Teams Plater Helper Relationship Specialty Start Date End Date Ricardo Taveras MD [address] [place] [address] PCP - General 02/08/22 documented as of this encounter
--- OUTSIDE RECORDS SUMMARY | 2024-03-11 17:04 | XMS_ITS | Encounter Summary ---
Author Organization [facility] Address [address] [place] [address] Care Team Providers Care Underground Heavy Equipment Operator Name Role Phone Jeanne Gar MD Primary Care Provider [phone] Ricardo Taveras MD Primary Care Provider [phone] Encounter Details Date Type Department Care Team (Late st Contact Info) Description 08/13/2020 Lab Requisition [facility] Pathology & Laboratory Medicine - [address] [address] Outr Resulting Lab, Provider Social History Tobacco [...] EST) Hep C Antibody Negative Negative 08/14/2020 11:32 EST [facility] Blood VENOUS BLOOD / Unknown 08/13/2020 8:55 EST 08/13/2020 22:18 EST Provider Outr Resulting Lab CHEMISTRY & BLOOD GAS ORDERABLES [facility] [address] [place] [address] documented in this encounter Visit Diagnoses Not on filedocumented in this encounter Care Teams Underground Heavy Equipment Operator Relationship Specialty Start Date End Date Jeanne Gar MD [address] [place] [address] PCP - General 08/10/15 02/07/22 Ricardo Taveras MD [address] [place] [address] PCP - General 02/08/22 documented as of this encounter
--- OUTSIDE RECORDS SUMMARY | 2024-03-11 17:04 | XMS_ITS | Encounter Summary ---
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 Pt reports that now is missing central vision in right eye. Has had problem seeing with right eye for a couple of years, but worse over past couple mos. Migraine Pt has H/O migraines since around 2003. Reports that used to have distorted vision right eye with flashing and Kaleidoscope effect, then would get the migraine after. The VF defect would start in central blind spot and grow until encompasses entire right eye. Migraines lasts around 12 hours and is not helped by OTC meds or Immitrex. Past couple months notices that sometimes gets a bad STAHL, but no aura's. The central blind spot gets a little bigger. These STAHL's can be relieved with Excedrin Migraine. Loss of Vision When gets the L.O.V. in right eye with the migrainous Aura's, usually lasts 20-30 min. No eye pain. No diplopia. Encounter Details Date Type Department Care Team (Late st Contact Info) Description 12/20/2012 13:00 EDT Office Visit [facility] Ophthalmology - [facility] [address] [place] [address] Garland Moy MD [address] [facility], [address] [place] [address] Social History Tobacco Use Types Packs/Day Years [...] Taken Comments Blood Pressure - - Pulse - - Temperature - - Respiratory Rate - - Oxygen Saturation - - Inhaled Oxygen Concentration - - Weight 79.4 kg (175 lb) 12/20/2012 1307 EDT Height 177.8 cm (5' 10) 12/20/2012 1307 EDT Body Mass Index 25.11 12/20/2012 1307 EDT documented in this encounter Progress Notes * Garland Moy MD - 12/21/2012 1333 EDT DIVISION OF OPHTHALMOLOGY [facility] December 20, 2012 Gina Castro OD [address] [place] [address] Castro: Thank you for your very detailed letter and notes regarding Yordan Weston. He is a patient who has previously been seen here by Dr Adalberto aMgaña, one of the previous neuro-ophthalmologists here at [facility]. Dr Magaña saw him and identified a visual field defect at that time. He was referred by Dr Rick Asher because of a progressive visual field defect. He was referred to Dr Magaña back on September 29, 2006, because of progressive blind spot for about one year. He has had transient visual loss lasting 30 minutes. He also at that point had some memory loss for about a year. I see that he has a family history of migraine and that his father has migraines and he does have headaches; sometimes he has headaches without visual loss in the right eye and other times he has them coupled together. The patient's vision is 20/20 in each eye. Ocular pressure is 14 and 13 mmHg. He has 40 seconds of stereopsis. There is a 0.6 log unit right afferent pupillary defect. The pupils are equal. Confrontation fieldsare remarkably full. Ocular motility is completely normal. This includes normal smooth pursuit and saccades as well as full versions and ductions. The Amsler grid is abnormal in the right eye and normal in the left eye. The slit lamp examination of the anterior segment is noncontributory to his transient visual changes and progressive visual loss. The lids, lashes and lacrimal system are normal, the cornea is clear,the anterior chamber is deep and quiet and the iris normal. The anterior chamber is totally unremarkable. The lens is clear with only a couple of smooth opacities in the right eye and none in the left. The vitreous has only syneresis. The right optic nerve is full with somewhat blurred margins and about a 0.1 cup-to-disc ratio. The nerve appears somewhat pale. There also are multiple exposed and presumed buried drusen throughout on the right nerve. That venous arterial ratio is 3:2. There are no spontaneous venous pulsations. Finally, the macula is normal. In the left eye, the nerve is quite unremarkable. It is only slightly full inferiorly. There are no exposed drusen. There are no holes or hemorrhages or exudates; in fact,there are no hemorrhages or exudates in either eye. The venous arterial ratio is 3:2 but there are no venous pulsations. Finally, the macula is normal. Incidentally, there are no angioid streaks or br eaks in Bruch's noted. We then repeated his visual arriaza and compared them to the arriaza going back to 2005 that were available in the chart. In the right eye, there is a more marked nasal defect. It actually is about the same as what was obtained in 2006, but it has varied before and after that time; the left eye has just a couple random areas of decreased sensitivity and these are adjacent to fixation. This is considered on the Cruz 24-2 OLVIN standard to be within normal limits. I repeated the OCTs simply because the colored ones that you were kind enough to send us do not transmit well and we cannot see the information. Thus, the average thickness is 57 microns in the rightand 94 microns in the left. The right nerve is overall thin. The only area with normal thickness isnasally in the right eye. The left eye is borderline thin inferiorly at 97 microns. The scan seems to show what would be considered a lumpy- bumpy base to the optic nerves and this is true in each eye; these are consistent with optic nerve drusen. The macular region, as you noted, shows thin fibers in the perimacular region on the right as compared to the left. In summary, the patient carries a diagnosis of migraine headache with transient visual loss. 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 Finally, he has a visual field defect presumed secondary to the optic nerve drusen. One concern is that there might be more than one cause for his visual problems and with that in mind, I have ordered a repeat MRI of the brain and orbits with and without enhancement. He did have an MRI and a CT angiogram in 2003 at [facility]. This was ordered by Dr Rodriguez. He also had sleep studies and what sounds to be an EEG at that time as well. I have not ordered a multitude of laboratory tests that I usually order for amaurosis fugax, but I will keep that in mind depending on the results of the neuroimaging. Incidentally, in regards to his migraine, he currently is taking Excedrin Migraine, which does seemto give him relief. We will talk a little bit about that. Thank you for allowing me to share in the care of this patient. It was helpful to have your notes, and especially helpful to have the old records that we had here to compare. Sincerely, Electronically Signed by Garland Moy MD, FACS 12/26/2012 17:23 Garland Moy MD, FACS Neuro-ophthalmology [address] [place] [address] - Garland Moy MD, FACS - [facility] Job ID: SM Doc ID: [id number] [facility] Doc ID: [id number] cc: MD Gina Covington OD * Garland Moy MD - 12/20/2012 1433 EDT I am scribing for Garland Moy MD while he is personally performing the service. KAYY Yao 12/20/2012 14:33 . Base Ophthalmology Exam Visual Acuity Right Left Dist cc 20/20 slt eccentric 20/20 Near cc J1+ J1+ Method: Snellen - Linear Correction: Glasses Tonometry Right Left Pressure ~14 ~13 Method: Applanation Time: 14:16, WS Wearing Rx Sphere Cylinder Livingston Right Atwood +0.50 023 Left -0.25 +1.00 152 Type: SVL Stereo Fly: + Circles: 40 sec Color Right Left Color 04/25 05/26 Method: AOPIP Dilation Both eyes: 0.5% Mydriacyl, 2.5% Phenylephrine @ 14:17 Pupils Dark React APD Right 5 0.6 log units Left 5 3 None Visual Arriaza Right Left Result Full Full Extraocular Movement Right Left Result Full, Ortho Full, Ortho Comments: Full V/D. WS Base Ophthalmology Exam Addl. Tests Amsler Right Left Amsler Missing lines, see drawing. Normal Main Ophthalmology Exam External Exam Right Left External Normal Normal Slit Lamp Exam Right Left Lids/Lashes Normal Normal Conjunctiva/Sclera White and quiet, No stain White and quiet, No stain Cornea Clear, all 5 layers, No Stain. BUT 10+ Clear, all 5 layers, No Stain. BUT 10+ Anterior Chamber Mod, quiet Mod, quiet Iris Round and reactive, no TI Round and reactive, no TI Neuro/Psych Oriented x3: Yes Mood/Affect: Normal Cornea examined, all 5 layers. ROS, Medications, Allergies reviewed. CVF, Pupil check and EOM's rechecked to include versions & ductions. Lids, lashes, lacrimal and orbit examined. All normal unless otherwise noted. This note has been dictated and scanned. 78D and Direct were used for the posterior exam. IMP: Yordan was seen today for visual distortion, migraine and loss of vision. Diagnoses and associated orders for this visit: Vfd (visual field defect) Optic nerve drusen Central loss of vision Comments: Right eye Migraine, unspecified, without mention of intractable migraine without mention of status migrainosus Headache Test Performed: HVF 24-2 and macula right Indications for test: VFD/Migraine/loss of Va Results/Findings: Right normal macula/ abnormal with nasal defect 24-2/left eye WNL with a few areas slightly decreased fovea 30 Plan: MRI brain and orbits Test Performed: OCT NFL and macula Indications for test: VFD/Migraine/loss of Va Results/Findings: 57/94 signal 02/19- Plan: MRI brain and orbits This note has been dictated and scanned. PLAN: documented in this encounter Miscellaneous Notes * Scanned Note-Null - BALLOON ARTIST, SCAN 2 - 12/23/2012 1301 EDT documented in this encounter Plan of Treatment Not on file documented as of this encounter Visit Diagnoses Diagnosis VFD (visual field defect)- Primary Visual field defect, unspecified Optic nerve drusen Drusen of optic disc Central loss of vision Scotoma involving central area in visual field Migraine, unspecified, without mention of intractable migraine without mention of status migrainosus Headache(784.0) Headache Amaurosis fugax of right eye Transient arterial occlusion of retina documented in this encounter Eye Exam Visual Acuity (Snellen - Linear) Right eye Left eye Dist cc 20/20 slt eccentric 20/20 Near cc J1+ J1+ Correction: Glasses Tonometry (Applanation, 14:16, WS) Right eye Left eye Pressure ~14 ~13 Pupils Dark React APD Right eye 5 0.6 log units Left eye 5 3 None Visual Arriaza Right eye Left eye Full Full Extraocular Movement Right eye Left eye Full, Ortho Full, Ortho Full V/D. WS Neuro/Psych Oriented x3: Yes Mood/Affect: Normal Dilation Both eyes: 0.5% Mydriacyl, 2 .5% Phenylephrine @ 14:17 Amsler Right eye Left eye Missing lines, see drawing. Norm al Color Right eye Left eye AOPIP 04/25 05/26 Stereo Fly: + Circles: 40 sec External Exam Right eye Left eye External Normal Normal Slit Lamp Exam Right eye Left eye Lids/Lashes Normal Normal Conjunctiva/Sclera White and quiet, No stain Whi te and quiet, No stain Cornea Clear, all 5 layers, No Stain. BUT 10+ Clear, all 5 layers, No Stain. BUT 10+ Anterior Chamber Mod, quiet Mod, quiet Iris Round and reactive, no TI Round and reactive, no TI Lens Clear, Few Peripheral wilda opac Clear Vitreous Vitreous syneresis Vitreous syne resis Wearing Rx Sphere Cylinder Livingston Right eye Atwood +0.50 023 Left eye -0.25 +1.00 152 Type: SVL Care Teams Cleaning Custodian Relationship Specialty Start Date End Date Twyla White MD [address] [place] [address] PCP - General 12/07/12 08/09/15 documented as of this encounter
--- OUTSIDE RECORDS SUMMARY | 2024-03-11 17:04 | XMS_ITS | Encounter Summary ---
Author Organization [facility] Address [address] [place] [address] Care Team Providers Care Metal Sprayer Protective Coating Name Role Phone Ricardo Taveras MD Primary Care Provider [phone] Encounter Details Date Type Department Care Team (Late st Contact Info) Description 06/17/2022 Documentation Visit [facility] Rehabilitation Therapy [address] [id number] Can Villatoro, PT [address] [place] [address] Social History Tobacco Use Types Packs/Day Years Used Date Smoking Tobacco: Never Smokeless Tobacco: Never Alcohol Use Standard Drinks/Week Comments Not Asked 0 (1 standard drink = 0.6 oz pur e alcohol) Sex and Gender Information Value Date Recorded Sex Assigned at Not on file Gender Identity Male 10/31/2021 16:59 EDT Sexual Orientation Not on file documented as of this encounter Progress Notes * Can Villatoro, PT - 06/17/2022 0801 EST [facility] [phone] Physical Therapy Discharge Not Seen Recently Therapy Diagnosis: L dorsal foot pain due to mechanical stress/hypomobility currently limiting the pt with walking and running tolerance Referring Clinician: Carolyn Ashley DPM Reporting Period: 03/14/2022-06/17/2022 Physical Therapy Program to Date: In summary, the program has included: initial evaluation and orthotic fit and train to improve function Goal Review: Short-Term Goals Timeframe: 04/25/2022 1. The pt will verbalize and demonstrate understanding of custom molded orthotic fitting and weening in process for safe wear. (goal met) Long-Term Goals Timeframe: 06/06/2022 1. The pt will be able to walk 1 mile with use of custom orthotics to improve function with community navigation. (goal met) Discharge Reason: Called patient on 06/17 to check in, states he is doing well and back to running. Discharge patient at this time; future therapy will require a new physician's referral. documented in this encounter Plan of Treatment Not on file documented as of this encounter Visit Diagnoses Not on filedocumented in this encounter Care Teams Metal Sprayer Protective Coating Relationship Specialty Start Date End Date Ricardo Taveras MD [address] [place] [address] PCP - General 02/08/22 documented as of this encounter
--- OUTSIDE RECORDS SUMMARY | 2024-03-11 17:04 | XMS_ITS | Clinical Summary ---
Author Organization [facility] Address [address] [place] [address] Care Team Providers Care Operations Architect Name Role Phone Ricardo Taveras MD Primary Care Provider [phone] Allergies Active Allergy Reactions Criticality Noted Date [...] Headache 12/20/2012 Overview: ICD10 Update Auto Replacement Family History Medical History Relation Comments Blindness Neg Hx Cancer Neg Hx Diabetes Neg Hx Glaucoma Neg Hx Macular Degeneration Neg Hx Stroke Neg Hx Thyroid Disease Neg Hx Social History Tobacco Use Types Packs/Day Years Used Date Smoking Tobacco: Never Smokeless Tobacco: Never Alcohol Use Standard Drinks/Week Comments Not Asked 0 (1 standard drink = 0.6 oz pur e alcohol) Sex and Gender Information Value Date Recorded Sex Assigned at Not on file Gender Identity Male 10/31/2021 16:59 EDT Sexual Orientation Not on file Obstetrics History Last Filed Vital Signs Vital Sign Reading [...] 25.11 12/20/2012 1307 EDT Plan of Treatment Health Maintenance Due Date Last Done Comments Hepatitis B Vaccine (1 of 3 - 19+ 3-dose series) 2002 COVID-19 Vaccine (2022-24 season) 2023 Hepatitis C Screen Completed 08/13/2020, 08/13/2020 Procedures Procedure Name Priority Date/Time Associated Diagnosis Comments HEPATITIS C AB W REFLEX TO HCV RNA BY PCR Routine 08/13/2020 8:55 EST from Last 3 Months or Most Recently Relevant to Health Maintenance Results * HEPATITIS C AB W REFLEX TO HCV RNA BY PCR (08/13/2020 8:55 EST) Hep C Antibody Negative Negative 08/14/2020 11:30 EST [facility] Blood VENOUS BLOOD / Unknown 08/13/2020 8:55 EST 08/13/2020 22:18 EST Provider Outr Resulting Lab CHEMISTRY & BLOOD GAS ORDERABLES [facility] [address] [place] [address] from Last 3 Months or Most Recently Relevant to Health Maintenance Care Teams Operations Architect Relationship Specialty Start Date End Date Ricardo Taveras MD [address] [place] [address] PCP - General 02/08/22
--- OUTSIDE RECORDS SUMMARY | 2024-03-11 17:04 | XMS_ITS | Encounter Summary ---
Author Organization [facility] Address [address] [place] [address] Care Team Providers Care Air Traffic Instructor Name Role Phone Ricardo Taveras MD Primary Care Provider [phone] Encounter Details Date Type Department Care Team (Late st Contact Info) Description 10/12/2023 Lab Requisition [facility] Pathology & Laboratory Medicine - [address] [address] Outr Resulting Lab, Provider Social History Tobacco [...] Procedure Name Priority Date/Time Associated Diagnosis Comments PSA TOTAL, DIAGNOSTIC Routine 10/12/2023 9:10 EDT documented in this encounter Results * PSA TOTAL, DIAGNOSTIC (10/12/2023 9:10 EDT) PSA 0.6 <=2.5 ng/mL 10/12/2023 22:13 EDT [facility] Blood VENOUS BLOOD / Unknown 10/12/2023 9:10 EDT 10/12/2023 20:59 EDT Narrative [facility] - 10/12/2023 22:13 EDT NOTE: Serum PSA concentration should not be interpreted as absolute evidence for the presence or absence of malignant disease. Assayed on Siemens ADVIA Centaur XPT using chemiluminescent technology.??Values obtained by using different assay methods cannot be used interchangeably. Provider Outr Resulting Lab CHEMISTRY & BLOOD GAS ORDERABLES [facility] [address] [place], [place] [address] documented in this encounter Visit Diagnoses Not on filedocumented in this encounter Care Teams Air Traffic Instructor Relationship Specialty Start Date End Date Ricardo Taveras MD [address] [place], [place] [id number] PCP - General 02/08/22 documented as of this encounter
--- OUTSIDE RECORDS SUMMARY | 2024-03-11 17:04 | XMS_ITS | Encounter Summary ---
Author Organization [facility] Address [address] [place] [address] Care Team Providers Care Program Administrator Name Role Phone Jeanne Gar MD Primary Care Provider [phone] Reason for Visit * Reason Onset Date Comments Provider Referred 08/13/2015 Encounter Details Date Type Department Care Team (Late st Contact Info) Description 08/13/2015 Telephone [facility] Dermatology 3rd Floor [address] [id number] Millie Grigsby MD [address] [place] [address], [address] [place] [address] Provider Referred Social History Tobacco Use Types Packs/Day Years Used Date Smoking Tobacco: Never Smokeless Tobacco: Never Alcohol Use Standard Drinks/Week Comments Not Asked 0 (1 standard drink = 0.6 oz pur e alcohol) Sex and Gender Information Value Date Recorded Sex Assigned at Not on file Gender Identity Male 10/31/2021 16:59 EDT Sexual Orientation Not on file documented as of this encounter Miscellaneous Notes * Telephone Encounter - Adriana Boston RN - 08/15/2015 1221 EST Spoke to patient Scheduled for NPV 08/29/15 at 2;[address] Hart, WP5 ADRIANA BOSTON RN 08/15/2015 12:21 * Telephone Encounter - Adriana Boston RN - 08/13/2015 1531 EST PRISM Notes under External Notes tab Patient is referred by Dr Carla Solares, [facility] for rash right foot Per notes 07/27/15; rash present since Af[place] x 5 years ago. Tried OTC antifungal cream and Tinactin -not effective - made it itch more.If left alone, slightly improves. Has spread more on the foot and ankle. Very itchy, aggravated by heat and sweat. Denies pain. Has not spread to anyone in thehousehold. On Exam: annular rash macular papular erythematous on the foot just above great toes. On the left he now has several scaly patches between the toes and several going up the ankle and along the lateral malleolus and several very small satellite lesions Prescribed ketoconazole 2% cream twice daily Left message for patient to call us back to speak with a triage nurse. Advised to call us back within 3 business days to avoid request being closed. ADRIANA BOSTON RN 08/13/2015 15:42 * Telephone Encounter - Shelley Holguin - 08/13/2015 1027 EST The patient is being referred by Carla Solares MD for a recurrent rash on his foot. The rash has been present off and on for 5 years since the patient returned from [facility]. The rash has now spread to his ankle. Notes are in Scans/Media. documented in this encounter Plan of Treatment Not on file documented as of this encounter Visit Diagnoses Not on filedocumented in this encounter Care Teams Program Administrator Relationship Specialty Start Date End Date Jeanne Gar MD [address] [place] [address] PCP - General 08/10/15 02/07/22 documented as of this encounter
--- OUTSIDE RECORDS SUMMARY | 2024-03-11 17:04 | XMS_ITS | Encounter Summary ---
Author Organization [facility] Address [address] [place] [address] Care Team Providers Care Bar Staff Name Role Phone Ricardo Taveras MD Primary Care Provider [phone] Reason for Referral * Radiology Services (Routine/Next Available) - Closed Specialty Diagnoses / Procedures Referred By Cindy garcia Referred To Contact Radiology Diagnoses Lisfranc's sprain, left, subsequent encounter Procedures MR FOOT WO CONTRAST LEFT Carolyn Ashley DPM [address] [place] [address] [facility] Referral ID Status Reason Start Date Expiration Date Visits Re quested Visits Authorized [id number] Closed 01/15/2022 07/14/2022 1 1 Reason for Visit * Radiology Services (Routine/Next Available) - Closed Specialty Diagnoses / Procedures Referred By Cindy garcia Referred To Contact Radiology Diagnoses Lisfranc's sprain, left, subsequent encounter Procedures MR FOOT WO CONTRAST LEFT Carolyn Ashley DPM [address] [address] [facility] Referral ID Status Reason Start Date Expiration Date Visits Re quested Visits Authorized [id number] Closed 01/15/2022 07/14/2022 1 1 Encounter Details Date Type Department Care Team (Latest Contact Info) Description 02/08/2022 7:08 EDT - 02/08/2022 23:59 EDT [facility] [place] Radiology MRI - [address] [address] Lisfranc's sprain, left, subsequent encounter Discharge Disposition: Home or Self Care Social [...] 10:09 EDT documented as of this encounter Discharge Disposition Disposition Code Departure Means Destination Home or Self Care documented in this encounter Plan of Treatment Not on file documented as of this encounter Procedures Procedure Name Priority Date/Time Associated Diagnosis Comments MR FOOT WO CONTRAST LEFT Routine 02/08/2022 8:10 EDT Lisfranc's sprain, left, subsequent encounter documented in this encounter Results * MR FOOT WO [...] hindfoot and ankle are excluded from the [id number]. Findings: There is indistinct increased signal involving [...] The hindfoot andankle are excluded from the [id number]. Findings: There is indistinct increased signal involving [...] findings and details as above. Carolyn Ashley DPLazaro IMG MRI ORDERABLES documented in this encounter Visit Diagnoses Diagnosis Lisfranc's sprain, left, subsequent encounter documented in this encounter Care Teams Bar Staff Relationship Specialty Start Date End Date Ricardo Taveras MD [address] [place] [address] PCP - General 02/08/22 documented as of this encounter
[2024-03-11 22:07] LABS: TSH (W/Ref FT4) 1.01 uIU/mL (0.36-3.74); Vitamin B12 671 pg/mL (193-986)
== END 2024-03-11 17:00 | disposition home or self-care (01) ==
LOC: NCHCN 16:59
PROVIDERS: PCP Nurse Practitioner Family; Visit Provider Nurse Practitioner Family
DX: R20.2 Paresthesia of skin (principal)
CPT/HCPCS: 82607; 84443

== ENCOUNTER 2024-03-18 00:17 | Outpatient (CLI) | payer OTHER, SELFPAY ==
--- OUTSIDE RECORDS SUMMARY | 2024-03-18 00:18 | XMS_ITS | Encounter Summary ---
Author Organization [facility] [place] [address] Care Team Providers Care Vendor Quality Supervisor Name Role Phone Unavailable Primary Care Provider Unavailabl e Reason for Visit * Reason Onset Date Comments Referral 03/15/2024 Neurology Encounter Details Date Type Department Care Team (Late st Contact Info) Description 03/15/2024 Telephone Neurology at [facility] [place] [id number] Unknown None Referral (Neurology ) Social History Tobacco Use Types Packs/Day Years Used Date Smoking Tobacco: Never Assessed Sex and Gender Information Value Date Recorded Sex Assigned at Not on file Gender Identity Not on file Sexual Orientation Not on file documented as of this encounter Miscellaneous Notes * Telephone Encounter - Oscar Flood - 03/17/2024 3:17 PM EDT Yordan Weston, patient, stated he is following up to check the status of his referral and can be reached at [phone] * Telephone Encounter - Socorro Gonzalez As - 03/15/2024 11:25 AM EDT Patient calling in: Caller: Yordan Weston If not PT/Relation to PT: PT Best number to reach caller: [phone] Reason for the Call: to see what is required to be seen by neuro To check on the statusof their referral: If not, what is the reason for their call: to see what is required to be seen byneuro Previous Neurology Information Questions: Has the patient seen another Neurologist: Yes If yes, when and where: 2003 at [place], [place] Has the patient had any imaging done outside of : Yes If yes, when and where: 03/10 at [facility] ER, CT head and neck and MRI of the brain documented in this encounter Plan of Treatment Not on file documented as of this encounter Visit Diagnoses Not on filedocumented in this encounter
--- OUTSIDE RECORDS SUMMARY | 2024-03-18 00:18 | XMS_ITS | Clinical Summary ---
Author Organization [facility] [place] [address] Care Team Providers Care Outside Plant Engineer Name Role Phone Unavailable Primary Care Provider Unavailabl e Encounters Date Type Department Care Team Description 03/15/2024 [place] [id number] Unknown Referral (Neurology ) from Last 3 Months Social History Tobacco Use Types Packs/Day Years Used Date Smoking Tobacco: Never Assessed Sex and Gender Information Value Date Recorded Sex Assigned at Not on file Gender Identity Not on file Sexual Orientation Not on file Plan of Treatment Health Maintenance Due Date Last Done Comments HIV screen 2001 Hepatitis C Screening 2001 Lipid Screening 2001 Hepatitis B vaccine (0-59 yrs) (1) 2002 Tdap adult 2002 Tetanus vaccine 2002 Covid-19 Vaccine ( season) 2024 Influenza (Flu) vaccine (1 o f 1 - Influenza standard series) 03/13/2024
--- OUTSIDE RECORDS SUMMARY | 2024-03-18 00:19 | XMS_ITS | Clinical Summary ---
Author Organization [facility] Address [address] [place] [address] Care Team Providers Care Base Cloth Inspector Name Role Phone Ricardo Taveras MD Primary Care Provider [phone] Allergies Active Allergy Reactions Criticality Noted Date [...] Negative Negative 08/14/2020 11:30 EST [facility] Blood VENOUS BLOOD / Unknown 08/13/2020 8:55 EST 08/13/2020 22:18 EST Provider Outr Resulting Lab CHEMISTRY & BLOOD GAS ORDERABLES [facility] [address] [place] [address] from Last 3 Months or Most Recently Relevant to Health Maintenance Care Teams Base Cloth Inspector Relationship Specialty Start Date End Date Ricardo Taveras MD [address] [place] [address] PCP - General 02/08/22
--- OUTSIDE RECORDS SUMMARY | 2024-03-18 00:19 | XMS_ITS | Encounter Summary ---
Author Organization [facility] Address [address] [place] [address] Care Team Providers Care Insulator Cutter And Former Name Role Phone Ricardo Taveras MD Primary Care Provider [phone] Encounter Details Date Type Department Care Team [...] on filedocumented in this encounter Care Teams Insulator Cutter And Former Relationship Specialty Start Date End Date Ricardo Taveras MD [address] [place] [address] PCP - General 02/08/22 documented as of this encounter
--- OUTSIDE RECORDS SUMMARY | 2024-03-18 00:19 | XMS_ITS | Referral Summary ---
Author Organization [facility] Address [address] [place] [address] Care Team Providers Care Animal Maintenance Supervisor Name Role Phone Ricardo Taveras MD Primary Care Provider [phone] Allergies Active Allergy Reactions Criticality Noted Date [...] C Antibody Negative Negative 08/14/2020 11:30 EST [facility] Blood VENOUS BLOOD / Unknown 08/13/2020 8:55 EST 08/13/2020 22:18 EST Provider Outr Resulting Lab CHEMISTRY & BLOOD GAS ORDERABLES [facility] [address] [place] [address] from Last 3 Months or Most Recently Relevant to Health Maintenance Care Teams Animal Maintenance Supervisor Relationship Specialty Start Date End Date Ricardo Taveras MD [address] [place] [address] PCP - General 02/08/22
--- OUTSIDE RECORDS SUMMARY | 2024-03-18 00:19 | XMS_ITS | Continuity of Care Document ---
Author Name [facility] Organization [facility] Care Team Providers Care Helicopter Engineer Name Role Phone [facility] Unavailable Unavailable Problems Combined list of problems from Department of Defense and Veterans Affairs facilities. It does not include entries that were removed or entered in error. Problem Status Onset Date Problem Type Date of Resolution Comments Source superficial injury abrasion of left knee Inactive Condition [facility] cellulitis Inactive Condition [facility] visit for: examination of subpopulation Active Condition [facility] Diagnosis: ICD-10-CM H90.3 Sensorineural hearing loss, bilateral Active Diagnosis [facility] Medications Combined list of outpatient medications [...] ORAL, AVET PHARMACEUT, 500 ea. BOTTLE Active [id number] 2023 30 Pharmac y Data Transac tion Service Facilit y BUSPIRONE HCL (buspirone HCl), 5 MG, TABLET, ORAL, AVET PHARMACEUT, 500 ea. BOTTLE Active [id number] 2023 30 Pharmac y Data Transac tion Service Facilit y PRAZOSIN HCL (prazosin HCl), 1 MG, CAPSULE, ORAL, EXELAN PHARMACE, 1000 ea. BOTTLE Active [id number] 4 2023 90 Pharmac y Data Transac tion Service Facilit y PRAZOSIN HCL (prazosin HCl), 1 MG, CAPSULE, ORAL, LIFESTAR PHARMA, 100 ea. BOTTLE Active [id number] 2023 90 Pharmac y Data Transac tion Service Facilit y PRAZOSIN HCL (prazosin HCl), 1 MG, CAPSULE, ORAL, LIFESTAR PHARMA, 100 ea. BOTTLE Active [id number] 2023 30 Pharmac y Data Transac tion Service Facilit y PRAZOSIN HCL (prazosin HCl), 1 MG, CAPSULE, ORAL, LIFESTAR PHARMA, 100 ea. BOTTLE Active [id number] 2023 30 Pharmac y Data Transac tion Service Facilit y PRAZOSIN HCL (prazosin HCl), 1 MG, CAPSULE, ORAL, LIFESTAR PHARMA, 100 ea. BOTTLE Active [id number] 2023 30 Pharmac y Data Transac [...] Known Allergies Drug allergy (disorder) active 0 [facility] NO KNOWN ALLERGIES Propensity to adverse reactions to substance Active Ambulatory Pharmacy Immunizations Combined list of available immunizations from the Department of Defense and Veterans Affairs facilities. Immunization Series Date Given Administered By Site Reaction Lot Number CVX Code Drug Manager Paid Status Comments Source meningococcal A,C,Y,W-135 (MCV4P) 2020 Left Arm [id number] sanofi pasteur complet ed meningoco ccal A,C,Y,W-1 35 (MCV4P) 10/03/20 Given Ambulat ory Pharmac y typhoid Vi capsular polysaccharid e vac 2020 Left Arm [id number] sanofi pasteur complet ed typhoid Vi capsular polysacch aride vac 10/03/20 Given Ambulat ory Pharmac y yellow fever vaccine 2020 Left Arm [id number] 37 sanofi pasteur complet ed yellow fever vaccine 10/03/20 Given Ambulat ory Pharmac y meningococcal A,C,Y,W-135 (MCV4P) 2020 [id number] 114 sanofi pasteur complet ed meningoco ccal A,C,Y,W-1 35 (MCV4P) 10/03/20 Given Ambulat ory Pharmac y typhoid Vi capsular polysaccharid e vac 2020 [id number] 101 sanofi pasteur complet ed typhoid Vi capsular polysacch aride vac 10/03/20 Given Ambulat ory Pharmac y yellow fever vaccine 2020 [id number] 37 sanofi pasteur complet ed yellow fever vaccine 10/03/20 Given Ambulat ory Pharmac y yellow fever vaccine 1 2020 EDEL ROMO [id number] 37 Sanofi Pasteur (PMC) complet ed yellow fever vaccine DoD typhoid Vi capsular polysaccharid e vaccine 1 2020 EDEL ROMO [id number] 101 Sanofi Pasteur (PMC) complet ed typhoid Vi capsular polysacch aride vaccine DoD meningococcal polysaccharid e (groups A, C, Y and W-135) diphtheria toxoid conjugate vaccine (MCV4P) 1 2020 EDEL ROMO [id number] 114 Sanofi Pasteur (PMC) complet ed meningoco ccal polysacch aride (groups A, C, Y and W-135) diphtheri a toxoid conjugate vaccine (MCV4P) DoD COVID Vaccine Moderna 2020 [id number] 207 complet ed COVID Vaccine Moderna 09/14/20 Given Ambulat ory Pharmac y COVID Vaccine Moderna 2020 [id number] 207 complet ed COVID Vaccine Moderna 09/14/20 Given Ambulat ory Pharmac y SARS-COV-2 (COVID-19) vaccine, mRNA, spike protein, LNP, preservative free, 100 mcg or 50 mcg dose 2 2020 [id number] 207 Moderna [employer] (MOD) complet ed SARS-COV- 2 (COVID-19 ) vaccine, mRNA, spike protein, LNP, preservat lien free, 100 mcg or 50 mcg dose DoD COVID Vaccine Moderna 2020 [id number] 207 complet ed COVID Vaccine Moderna 08/17/20 Given Ambulat ory Pharmac y COVID Vaccine Moderna 2020 [id number] 207 complet ed COVID Vaccine Moderna 08/17/20 Given Ambulat ory Pharmac y SARS-COV-2 (COVID-19) vaccine, mRNA, spike protein, LNP, preservative free, 100 mcg or 50 mcg dose 1 2020 [id number] 207 [facility] [employer] ([facility]) complet ed SARS-COV- 2 (COVID-19 ) vaccine, mRNA, spike protein, LNP, preservat lien free, 100 mcg or 50 mcg dose DoD influenza, seasonal, injectable 2016 [id number] 141 [employer] complet ed influenza , seasonal, injectabl e 05/07/17 Given Ambulat ory Pharmac y Influenza, seasonal, injectable 1 [id number] (CSL) complet ed Influenza , seasonal, injectabl e DoD influenza, seasonal, injectable 2015 [id number] 141 [employer] complet ed influenza , seasonal, injectabl e 04/26/16 Given Ambulat ory Pharmac y influenza, seasonal, injectable 2015 [id number] 141 [employer] complet ed influenza , seasonal, injectabl e 04/26/16 Given Ambulat ory Pharmac y Influenza, seasonal, injectable 1 2015 [id number] 141 CS [employer] (CSL) complet ed Influenza , seasonal, [...] quadrivalent, contains preservative 1 2013 [id number] 158 [facility] [employer] (CS) complet ed influenza , injectabl e, quadrival ent, contains preservat lien DoD influenza, seasonal, injectable 2012 [id number] 141 [employer] complet ed influenza , seasonal, injectabl e 03/25/13 Given Ambulat ory Pharmac y influenza, seasonal, injectable 2012 [id number] 141 [employer] complet ed influenza , seasonal, injectabl e 03/25/13 Given Ambulat ory Pharmac y Influenza, seasonal, injectable 1 2012 [id number] 141 [facility] [employer] (CS) complet ed Influenza , seasonal, injectabl e DoD tetanus, diphtheria, acellular pertu is 2012 [id number] 2AA 115 [employer] complet ed tetanus, diphtheri a, acellular pertussis 09/03/12 Given Ambulat ory Pharmac y tetanus, diphtheria, acellular pertu is 2012 [id number] 2AA 115 [employer]SmithK[employer] complet ed tetanus, diphtheri a, acellular pertussis 09/03/12 Given Ambulat ory Pharmac y tetanus toxoid, reduced diphtheria toxoid, and acellular pertu is vaccine, adsorbed 1 2012 [id number] 2AA 115 [facility] (B) complet ed tetanus toxoid, reduced diphtheri a toxoid, and acellular pertussis vaccine, adsorbed DoD influenza, seasonal, injectable-pf 2011 [id number] 140 sanofi pasteur complet ed influenza , seasonal, injectabl e-pf 04/20/12 Given Ambulat ory Pharmac y influenza, seasonal, injectable-pf 2011 [id number] 140 sanofi pasteur complet ed influenza , seasonal, injectabl e-pf 04/20/12 Given Ambulat ory Pharmac y Influenza, seasonal, injectable, preservative free 1 2011 [id number] 140 Sanofi Pasteur ([facility]) complet ed Influenza , seasonal, injectabl e, preservat lien free DoD influenza virus vaccine, live 2010 [id number] 111 [employer] comple t ed influenza virus vaccine, live 04/13/11 Given Ambulat ory Pharmac y influenza virus vaccine, live 2010 [id number] 111 [employer] comple t ed influenza virus vaccine, live 04/13/11 Given Ambulat ory Pharmac y influenza virus vaccine, live, attenuated, for intranasal use 1 2010 [id number] 111 [employer] (MED) complet ed influenza virus vaccine, live, attenuate d, for intranasa l use DoD tuberculin purified protein derivative 2009 [id number] 96 sanofi pasteur complet ed tuberculi n purified protein derivativ e 06/18/10 Given Ambulat ory Pharmac y meningococcal polysaccharid e (MPSV4) 2009 [id number] 32 Unknown complet ed meningoco ccal polysacch aride (MPSV4) 03/16/10 Given Ambulat ory Pharmac y anthrax vaccine 2009 [id number] 24 Unknown complet ed anthrax vaccine 03/16/10 Given Ambulat ory Pharmac y influenza virus vaccine,split 2009 [id number] 15 Unknown complet ed influenza virus vaccine,s plit 03/16/10 Given Ambulat ory Pharmac y meningococcal polysaccharid e (MPSV4) 2009 [id number] 32 Unknown complet ed meningoco ccal polysacch aride (MPSV4) 03/16/10 Given Ambulat ory Pharmac y anthrax vaccine 2009 [id number] 24 Unknown complet ed anthrax vaccine 03/16/10 Given Ambulat ory Pharmac y influenza virus vaccine,split 2009 [id number] 15 Unknown complet ed influenza virus vaccine,s plit 03/16/10 Given Ambulat ory Pharmac y influenza virus vaccine, split virus (incl. purified surface antigen)-reti red CODE 1 2009 [id number] 15 Unknown (UNK) comple t ed influenza virus vaccine, split virus (incl. purified surface antigen)- retired CODE DoD anthrax vaccine 3 2009 [id number] 24 Unknown (UNK) comple t ed anthrax vaccine DoD meningococcal polysaccharid e vaccine (MPSV4) 1 2009 [id number] 32 Unknown (UNK) comple t ed meningoco ccal polysacch aride vaccine (MPSV4) DoD anthrax vaccine 2009 [id number] 24 [employer] complet ed anthrax vaccine 08/01/09 Given Ambulat ory Pharmac y vaccinia (smallpox) vaccine 2009 VV04-00 3A 75 Unknown complet ed vaccinia (smallpox ) vaccine 08/01/09 Given Ambulat ory Pharmac y vaccinia (smallpox) vaccine 2009 VV04-00 3A 75 Unknown complet ed vaccinia (smallpox ) vaccine 08/01/09 Given Ambulat ory Pharmac y anthrax vaccine 2009 [id number] [employer] complet ed anthrax vaccine 08/01/09 Given Ambulat ory Pharmac y anthrax vaccine 2 2009 [id number] [employer] ([facility]) complet ed anthrax vaccine DoD vaccinia (smallpox) vaccine 1 2009 VV04-00 3A 75 Unknown (UNK) complet ed vaccinia (smallpox ) vaccine DoD influenza virus vaccine,split 2008 [id number] 1A 15 Unknown complet ed influenza virus vaccine,s plit 06/26/09 Given Ambulat ory Pharmac y anthrax vaccine 2008 [id number] 24 [employer] complet ed anthrax vaccine 06/26/09 Given Ambulat ory Pharmac y tuberculin purified protein derivative 2008 [id number] 96 Unknown complet ed tuberculi n purified protein derivativ e 06/26/09 Given Ambulat ory Pharmac y anthrax vaccine 2008 [id number] 24 [employer] complet ed anthrax vaccine 06/26/09 Given Ambulat ory Pharmac y influenza virus vaccine,split 2008 [id number] 1A 15 Unknown complet ed influenza virus vaccine,s plit 06/26/09 Given Ambulat ory Pharmac y influenza virus vaccine, split virus (incl. purified surface antigen)-reti red CODE 1 2008 [id number] 1A 15 Unknown (UNK) complet ed influenza virus vaccine, split virus (incl. purified surface antigen)- retired CODE DoD anthrax vaccine 1 2008 [id number] [employer] ([facility]) complet ed anthrax vaccine DoD typhoid Vi capsular polysaccharid e vac 2008 [id number] 101 Unknown complet ed typhoid Vi capsular polysacch aride vac 06/14/09 Given Ambulat ory Pharmac y Novel influenza-H1N 1-, injectable 2008 [id number] 1 127 Unknown complet ed Novel influenza -I2O3-41, injectabl e 06/14/09 Given Ambulat ory Pharmac y Novel influenza-H1N 1-09, injectable 2008 [id number] 1 127 Unknown complet ed Novel influenza -P8A5-39, injectabl e 06/14/09 Given Ambulat ory Pharmac y typhoid Vi capsular polysaccharid e vac 2008 [id number] 101 Unknown complet ed typhoid Vi capsular polysacch aride vac 06/14/09 Given Ambulat ory Pharmac y typhoid Vi capsular polysaccharid e vaccine 1 2008 [id number] 101 Unknown (UNK) comple t ed typhoid Vi capsular polysacch aride vaccine DoD Novel influenza-H1N 1-09, injectable 1 2008 [id number] 1 127 Unknown (UNK) complet ed Novel influenza -H2P2-18, injectabl e DoD varicella virus vaccine 1 [...] dosage DoD influenza virus vaccine, live 2007 [id number] 111 Unknown complet ed influenza virus vaccine, live 05/20/08 Given Ambulat ory Pharmac y influenza virus vaccine, live, attenuated, for intranasal use 1 2007 [id number] 111 Unknown (UNK) comple t ed influenza virus vaccine, live, attenuate d, for intranasa l use DoD influenza virus vaccine, live 2006 [id number] 111 Unknown complet ed influenza virus vaccine, live 05/07/07 Given Ambulat ory Pharmac y influenza virus vaccine, live 2006 [id number] 111 Unknown complet ed influenza virus vaccine, live 05/07/07 Given Ambulat ory Pharmac y influenza virus vaccine, live, attenuated, for intranasal use 1 2006 [id number] 111 Unknown (UNK) comple t ed influenza [...] retired CODE DoD influenza virus vaccine,split 2004 [id number] 15 Unknown complet ed influenza virus vaccine,s plit 06/14/05 Given Ambulat ory Pharmac y influenza virus vaccine,split 2004 [id number] 15 Unknown complet ed influenza virus vaccine,s plit 06/14/05 Given Ambulat ory Pharmac y influenza virus vaccine, split virus (incl. purified surface antigen)-reti red CODE 1 2004 [id number] 15 Unknown (UNK) comple t ed influenza [...] y tetanus-dipht h toxoids (Td) adult/adol 2001 [id number] 09 [employer] complet ed tetanus-d iphth toxoids (Td) adult/ado l 07/17/01 Given Ambulat ory Pharmac y influenza virus vaccine,split 2001 [id number] 15 Unknown complet ed influenza virus vaccine,s plit 07/17/01 Given Ambulat ory Pharmac y influenza virus vaccine,split 2001 [id number] 15 Unknown complet ed influenza virus vaccine,s plit 07/17/01 Given Ambulat ory Pharmac y hepatitis A adult vaccine 2001 [id number] [employer] complet ed hepatitis A adult vaccine 07/17/01 Given Ambulat ory Pharmac y tetanus-dipht h toxoids (Td) adult/adol 2001 [id number] 09 [employer] complet ed tetanus-d iphth toxoids (Td) adult/ado l 07/17/01 Given Ambulat ory Pharmac y tetanus and diphtheria toxoids, adsorbed, preservative free, for adult use (2 Lf of tetanus toxoid and 2 Lf of diphtheria toxoid) 0 2001 [id number] 09 [employer] (AVB) complet ed tetanus and diphtheri a toxoids, adsorbed, preservat lien free, for adult use (2 Lf of tetanus toxoid and 2 Lf of diphtheri a toxoid) DoD influenza virus vaccine, split virus (incl. purified surface antigen)-reti red CODE 0 2001 [id number] 15 Unknown (UNK) comple t ed influenza [...] DC Date Status Disposition Source Sydnie BURR[place]([facility]) OUTPATIENT [id number] small pox eval ( C trp,07/13 70,CAV, MOB) JOSEPH MARTINS 08/10 Released w/o Limitations Sydnie [place]([facility]) [facility] OUTPATIENT [id number] 04/26 Released w/o Limitations Theater [facility] [place]([facility]) TELE CONSULT [id number] Notes Entered by: ARTURO SCHWARTZ 25 Sep 2020 1157 ------- ------- ------- ------- -- SM REQUEST ING MEDICAT ION FOR HEMORRH OIDS TRES [place]ORD[place]O 09/25 [facility] [place]([facility]) [facility] [place] OUTPATIENT [id number] Notes Entered by: Araseli LOVELACE 03 Oct 2020 0648 ------- ------- ------- ------- -- KAYLEN SHERIFF 10/03 Released w/o Limitations [facility] [place] [place] OUTPATIENT [id number] Notes Entered by: ROLAND JACQUES 03 Oct 2020 1235 ------- ------- ------- ------- -- EDY MEDINA 10/03 Released w/o Limitations [facility] [place] ) [facility] [place] OUTPATIENT [id number] Notes Entered by: MIRA BHAKTA 05 Oct 2020 1431 ------- ------- ------- ------- -- ANTOINETTE ORTEGA 10/05 Released w/o Limitations [facility] [place] [place] OUTPATIENT [id number] Notes Entered by: Jv SCHMIDT 25 Apr 2021 0705 ------- ------- ------- ------- -- SINDY MALDONADO 04/25 Released w/o Limitations [facility] [place] [place] OUTPATIENT [id number] Notes Entered by: ELIE BERGERON 25 Apr 2021 0852 ------- ------- ------- ------- -- INDIGO HAN 04/25 Released w/o Limitations [facility] [place] [place] OUTPATIENT [id number] Notes Entered by: David MURRAY 25 Apr 2021 1343 ------- ------- ------- ------- -- DESHAWNCOLTON BRAVO 04/25 Released w/o Limitations [facility] [place] Outpatient Encounter [id number] 10/25 [facility] [id number] 10/27 [facility] COMPREHENS LIEN HEARING TEST [id number] Diagnos is: ICD-10- CM H90.3 Sensori neural hearing loss, bilater al
RAFIA TREVINO ICK R 02[facility]18 [facility] Procedures Combined list of: [...] Social Work Individual Outpatient Counseling 30 Minutes [id number] 2009 CAMRYN LOWRY [facility] Psychotherapy Individual Approximately 30 Minutes Psychotherapy Individual Approximately 30 Minutes [id number] 2008 REINIER HARPER [facility] Preventive Medicine Administration Of Health Risk Questionnaire Patient-Focused Preventive Medicine Administration Of Health Risk Questionnaire Patient-Focused 38705 KAYLEN VALADEZ DoD Vaccines Viral Yellow Fever Vaccines Viral Yellow Fever 98764 KAYLEN VALADEZ Yellow Fever; Series #: 1; 0.5 mL; SC; Left Arm; Mfg: Sanofi Pasteur; Lot: [id number]; VIS given (Charline: 10/12/2019). [facility] Typhoid Vaccine Vi Capsular Polysaccharide, For Intramus Use Typhoid Vaccine Vi Capsular Polysaccharide, For Intramus Use 53099 HANG VALADEZL Typhoid, ViCPs; Series #: 1; 0.5 mL; IM; Left Arm; Mfg: Sanofi Pasteur; Lot: [id number]; VIS given (Charline: 05/11/2019). [facility] Meningococcal Polysaccharide Diphtheria Toxoid Conjugate Vaccine Meningococcal Polysaccharide Diphtheria Toxoid Conjugate Vaccine 98648 KAYLEN VALADEZ Meningococcal MCV4P (Menactra); Series #: 1; 0.5 mL; IM; Left Arm; Mfg: Sanofi Pasteur; Lot: [id number]; VIS given (Charline: 02/24/2019). [facility] Immunization Administration By Injection, One Vaccine Immunization Administration By Injection, One Vaccine 47713 VALADEZ, KAYLEN DoD Immunization Administration By Injection, Each Additional Vaccine Immunization Administration By Injection, Each Additional Vaccine 66757 VALADEZ, KAYLEN [facility] Spectacles Services Fitting Monofocal Except For Aphakia Spectacles Services Fitting Monofocal Except For Aphakia 56658 MARIO BHAKTA [facility] Threshold Audiogram (Pure Tone) Automated Threshold Audiogram (Pure Tone) Automated 0208T INDIGO VASQUEZ [facility] Adaptive Behavior A e ment System, 2nd Edition (ABAS-II) Adaptive Behavior Assessment System, 2nd Edition (ABAS-II) 10263 SINDY ARAGON PHQ9, GAD7 AND PCL5 ALL SCORED 0. SEVERITY NONE. [facility] PURE TONE AUDIOMETRY (THRESHOLD); AIR ONLY 2009 [facility] INDIVIDUAL PSYCHOTHERAPY, INSIGHT ORIENTED, BEHAVIOR MODIFYING AND/OR SUPPORTIVE, IN AN OFFICE OR OUTPATIENT FACILITY, APPROXIMATELY 20 TO 30 MINUTES [id number] WITH THE PATIENT 2009 [facility] SKIN TEST; TUBERCULOSIS, INTRADERMAL 2008 [facility] INFLUENZA VIRUS VACCINE, TRIVALENT (IIV3), SPLIT VIRUS, 0.5 ML DOSAGE, FOR INTRAMUSCULAR USE 2008 [facility] INDIVIDUAL PSYCHOTHERAPY, INSIGHT ORIENTED, BEHAVIOR MODIFYING AND/OR SUPPORTIVE, IN AN OFFICE OR OUTPATIENT FACILITY, APPROXIMATELY 20 TO 30 MINUTES [id number] WITH THE PATIENT 2008 [facility] OPHTHALMOLOGICAL SERVICES: MEDICAL EXAMINATION AND EVALUATION WITH INITIATION OF DIAGNOSTIC AND TREATMENT PROGRAM; INTERMEDIATE, NEW PATIENT 2002 [facility] OPHTHALMOLOGICAL SERVICES: MEDICAL EXAMINATION AND EVALUATION WITH INITIATION OF DIAGNOSTIC AND TREATMENT PROGRAM; INTERMEDIATE, NEW PATIENT 2001 [facility] ADMINISTRATION OF PATIENT-FOCUSED HEALTH RISK ASSESSMENT INSTRUMENT (EG, HEALTH HAZARD APPRAISAL) WITH SCORING AND DOCUMENTATION, PER STANDARDIZED INSTRUMENT 2020 [facility] PURE TONE AUDIOMETRY (THRESHOLD), AUTOMATED; AIR ONLY 2020 [facility] BRIEF EMOTIONAL/BEHAVIORA L ASSESSMENT (EG, DEPRESSION INVENTORY, ATTENTION-DEFICIT/H YPERACTIVITY DISORDER [ADHD] SCALE), WITH SCORING AND DOCUMENTATION, PER STANDARDIZED INSTRUMENT 2020 [facility] FITTING OF SPECTACLES, EXCEPT FOR APHAKIA; MONOFOCAL 2020 [facility] SCREENING TEST OF VISUAL ACUITY, QUANTITATIVE, BILATERAL 2020 DoD Social History Combined list of available smoking, tobacco, and other social history from Department of Defense and Veterans Affairs facilities. Social History Type Response Date Comment Sourc e This section is an empty social history section. DoD Assessment and Plan Combined list of future care activities from Department of Defense and Veterans Affairs facilities (e.g., assessment and plan notes, appointments, orders, and referrals). Additional future care activities may be listed in the Plan of Care section. Result Assessment and Plan Date Source Assessment and Plan No data available for this section 03/18/2024 Ambulatory Pharmacy Functional Status Combined list of recent functional and cognitive assessments recorded at Department of Defense and Veterans Affairs (VA).VA Functional [place] Measurement (FIM) Scale: 1 = Total Assistance (Subject = 0% +), 2 = Maximal Assistance (Subject = 25% +), 3 = Moderate Assistance (Subject = 50% +), 4 = Minimal Assistance (Subject = 75% +), 5 = Supervision, 6 = Modified [place] (Device), 7 = Complete [place] (Timely, Safely). Assessment Date/Time Source Assessment Type Assessment Skill Assessment Score Assessment Details No data available for this section
--- OUTSIDE RECORDS SUMMARY | 2024-03-18 00:19 | XMS_ITS | Data Portability ---
Author Organization [place] - [facility] [employer], MAIN OFFICE Address [address] [place] [address] Assessment Encounter Date Assessment Date Assessment LastModified [...] By Organization Details Last Modified Time 05/29/2020 3822 1.ther-biotic powder /8 tsp 2xday first thing [...] 8 vasectomy completed Annika Verduzco, [place] [address] [facility], [place], [address], [facility] 05/29/2020 09:25:21 11/01/200 5 extraction of wisdom tooth completed Annika Verduzco [place] [address] [place] [address], [phone], [facility] 05/29/2020 09:26:02 Imaging Results None recorded. [...] Address Organization Details Last Updated DateTime 0 24113.6 3 g 26.6 kg/m2 175.26 cm 70 /min 96 % 96 % 96 mm[Hg] Annika Verduzco ND [address] [place], [place] [address] [place] [address] 0 09:20:17 Social History Question Answer Notes LastModified by Organizat ion Details LastModified Time Tobacco Smoking Status Never Smoker Annika Verduzco ND [address] [place] [address], [phone], [facility] 05/29/2020 09:23:49 How Much Tobacco Do [...] ICD10 Code 7325 Annika VerduzcoMOHAN MAIN OFFICE [address] [place], [place] [address] 05/29/2020 09:16:33 05/29/2020 10:46:10 Onychomycosis of toenails 754621763 B35.1 Ophthalmic migraine 9565 5001 G43.B0 Fatigue 16004842 R53.83 Left flank pain 54715340 9 R10.9 Hyperlipid emia screening 890431655 Z13.220 Health Concerns Section Related Observation LastModified [...] didnt help- Neurologist- see Shashi Martinez in [facility]- current work for [employer]- he got new glasses to block blue light- 1200 glasses [place] decreased bf glasses- eye doctor- [place]- dR genia preston damgeraldo from [employer]- head injury and TBI from it- 9 [...] been right since- went to [facility]- went to PT and got better- if lays on left side gets pain if pain in left side of back then lower left calf gets pain- and sometimes leg will give- [place] seen chiro [place]- doxcycline for 1 yr duration Annika Verduzco, [place] [address] [facility], [place], [address], [place] - [facility] 05/29/2020 10:45:59
--- OUTSIDE RECORDS SUMMARY | 2024-03-18 00:19 | XMS_ITS | Encounter Summary ---
Author Organization [facility] Address [address] [place] [address] Care Team Providers Care Superintendent Maintenance Name Role Phone Ricardo Taveras MD Primary Care Provider Reason for Visit * Reason Comments Follow-up Encounter Details Date Type Department Care Team (Late st Contact Info) Description 02/11/2022 9:15 EDT Office Visit [facility] Orthopedics & Podiatry [address] [place], [place] [id number] [facility] [address] [facility] [place], [place] [id number] Lisfranc's sprain, left, subsequent encounter (Primary Dx); [...] hindfoot and ankle are excluded from the [id number]-hg-[id number]. ?? Findings: ?? There is indistinct increased [...] referral to our physical therapy here in [place]. [phone] [facility] Physical therapy [facility] [place], [place] 3. Midfoot Arthrosis Ibuprofen as needed or possible steroid injection in the future. Follow up PRN. Carolyn Ashley DPM, [facility] [place], [place] Other Orders Placed This Visit Procedures ??? ORTHOTICS documented in this encounter Plan of Treatment Not on file documented as of this encounter Visit Diagnoses Diagnosis Lisfranc's sprain, left, subsequent encounter- Primary Primary osteoarthritis of left foot documented in this encounter Orders General Supply Count Last Ordered Date First Or dered Date ORTHOTICS 1 02/11/2022 documented in this encounter Care Teams Superintendent Maintenance Relationship Specialty Start Date End Date Ricardo Taveras MD [address] [place] [address] PCP - General 02/08/22 documented as of this encounter
--- OUTSIDE RECORDS SUMMARY | 2024-03-18 00:19 | XMS_ITS | Encounter Summary ---
Author Organization [facility] Address [address] [place] [address] Care Team Providers Care Charge Out Clerk Name Role Phone Ricardo Taveras MD Primary Care Provider [phone] Reason for Visit * Reason Onset Date Comments Other 02/17/2022 orthotics Encounter Details Date Type Department Care Team (Late st Contact Info) Description 02/17/2022 Telephone [facility] Orthopedics & Podiatry [address] [place] [address] Ghazal Schafer, RN Other (orthotics) [...] Encounter - Ghazal Schafer, SANJEEV - 02/17/2022 9082 EDT Received voicemail message from Yordan. States he had Dr. Ashley send a [...] Primary documented in this encounter Care Teams Charge Out Clerk Relationship Specialty Start Date End Date Ricardo Taveras MD [address] [place] [address] PCP - General 02/08/22 documented as of this encounter
--- OUTSIDE RECORDS SUMMARY | 2024-03-18 00:19 | XMS_ITS | Encounter Summary ---
Author Organization [facility] Address [address] [place] [address] Care Team Providers Care General Accounting Clerk Name Role Phone Ricardo Taveras MD Primary Care Provider [phone] Reason for Visit * Reason Comments Follow-up Pain * Referral (Routine) - Authorized Specialty Diagnoses / Procedures Referred By Cindy garcia Referred To Contact Orthopedic Surgery Diagnoses Pain in left foot Jacquelyn Johnson, ASSOCIATE PROFESSOR OF LIBRARY SCIENCE 26 [facility] [address] [place] [address] [facility] [address] [place] [address] Referral ID Status Reason Start Date Expiration Date V isits Requested Visits Authorized [id number] Authorized 10/27/2023 10/26/2024 1 1 Encounter Details Date Type Department Care Team (Late st Contact Info) Description 11/05/2023 8:45 EDT Office Visit [facility] Orthopedics & Podiatry [address] [place], [place] [id number] [facility] [address] [facility] [address] [place] [address] Foot pain, left (Primary Dx); [...] hindfoot and ankle are excluded from the oykpi-[id number]. Findings: There is indistinct increased signal involving [...] Follow up 4 weeks. Carolyn Ashley DPM, [facility] [place], [place] documented in this encounter Plan of [...] 10/28/2023 added in this encounter Care Teams General Accounting Clerk Relationship Specialty Start Date End Date Ricardo Taveras MD [address] [place] [address] PCP - General 02/08/22 documented as of this encounter
--- OUTSIDE RECORDS SUMMARY | 2024-03-18 00:19 | XMS_ITS | Encounter Summary ---
Author Organization [facility] Address [address] [place] [address] Care Team Providers Care Cnc Operator Programmer Name Role Phone Ricardo Taveras MD Primary Care Provider [phone] Encounter Details Date Type Department Care Team (Late st Contact Info) Description 10/12/2023 Lab Requisition [facility] Pathology & Laboratory Medicine - [address] [address] Outr Resulting Lab, Provider Social History Tobacco [...] PSA 0.6 <=2.5 ng/mL 10/12/2023 22:13 EDT [facility] Blood VENOUS BLOOD / Unknown 10/12/2023 9:10 EDT 10/12/2023 20:59 EDT Narrative [facility] - 10/12/2023 22:13 EDT NOTE: Serum PSA concentration should not be interpreted as absolute evidence for the presence or absence of malignant disease. Assayed on Siemens ADVIA Centaur XPT using chemiluminescent technology.??Values obtained by using different assay methods cannot be used interchangeably. Provider Outr Resulting Lab CHEMISTRY & BLOOD GAS ORDERABLES [facility] [address] [place], [place] [address] documented in this encounter Visit Diagnoses Not on filedocumented in this encounter Care Teams Cnc Operator Programmer Relationship Specialty Start Date End Date Ricardo Taveras MD [address] [place], [place] [address] PCP - General 02/08/22 documented as of this encounter
--- OUTSIDE RECORDS SUMMARY | 2024-03-18 00:19 | XMS_ITS | Encounter Summary ---
Author Organization [facility] Address [address] [place] [address] Care Team Providers Care Screen Printing Stencil Preparer Name Role Phone Ricardo Taveras MD Primary Care Provider [phone] Encounter Details Date Type Department Care Team (Late st Contact Info) Description 06/17/2022 Documentation Visit [facility] Rehabilitation Therapy [address] [address] Can Villatoro, PT [address] [place] [address] Social History Tobacco Use Types Packs/Day Years [...] Villatoro, PT - 06/17/2022 0801 EST [facility] Outpatient Rehabilitation Services [phone] Physical Therapy Discharge Not Seen Recently Therapy [...] on filedocumented in this encounter Care Teams Screen Printing Stencil Preparer Relationship Specialty Start Date End Date Ricardo Taveras MD [address] [place] [address] PCP - General 02/08/22 documented as of this encounter
--- OUTSIDE RECORDS SUMMARY | 2024-03-18 00:20 | XMS_ITS | Encounter Summary ---
Author Organization [facility] Address [address] [place] [address] Care Team Providers Care Bootmaker Name Role Phone Jeanne Gar MD Primary Care Provider [phone] Ricardo Taveras MD Primary Care Provider [phone] Encounter Details Date Type Department Care Team (Late st Contact Info) Description 08/13/2020 Lab Requisition [facility] Pathology & Laboratory Medicine - [address] [address] Outr Resulting Lab, Provider Social History Tobacco [...] C Antibody Negative Negative 08/14/2020 11:30 EST [facility] Blood VENOUS BLOOD / Unknown 08/13/2020 8:55 EST 08/13/2020 22:18 EST Provider Outr Resulting Lab CHEMISTRY & BLOOD GAS ORDERABLES [facility] [address] [place] [address] documented in this encounter Visit Diagnoses Not on filedocumented in this encounter Care Teams Bootmaker Relationship Specialty Start Date End Date Jeanne Gar MD [address] [place] [address] PCP - General 08/10/15 02/07/22 Ricardo Taveras MD [address] [place] [address] PCP - General 02/08/22 documented as of this encounter
--- OUTSIDE RECORDS SUMMARY | 2024-03-18 00:20 | XMS_ITS | Encounter Summary ---
Author Organization [facility] Address [address] [place] [address] Care Team Providers Care Oyster Farmer Name Role Phone Jeanne Gar MD Primary Care Provider [phone] Reason for Visit * Reason Comments New Patient Visit Pain * Referral (Routine) - Authorized Specialty Diagnoses / Procedures [facility] Referred To Contact Orthopedic Surgery Diagnoses Left foot pain Jacquelyn Johnson, GEOGRAPHIC INFORMATION SYSTEMS ENGINEER 26 [facility] [address] [place] [address] Elena Lobato, DP 1311 [facility] [address] [place] [address] Referral ID Status Reason Start Date Expiration Date V isits Requested Visits Authorized [id number] Authorized 1 1 Encounter Details Date Type Department Care Team (Late st Contact Info) Description 12/12/2021 10:[address] [facility] Orthopedics & Podiatry [address] [place], [place] [phone] Carolyn Ashley DPLazaro 13[address] [facility] [address] [place], [place] [id number] Foot pain, left (Primary Dx); Lisfranc's sprain, [...] 12/12/2021 10:30 EDT Ankle sleeve (compression) at [facility] Lisfranc's sprain documented in this encounter Ordered [...] up in 1 month. Carolyn Ashley DPM, [facility] [place], [place] Other Orders Placed This Visit Procedures [...] midfoot documented in this encounter Care Teams Oyster Farmer Relationship Specialty Start Date End Date Jeanne Gar MD [address] [place] [address] PCP - General 08/10/15 02/07/22 documented as of this encounter
--- OUTSIDE RECORDS SUMMARY | 2024-03-18 00:20 | XMS_ITS | Encounter Summary ---
Author Organization [facility] Address [address] [place] [address] Care Team Providers Care Bereavement Counselor Name Role Phone Unavailable Primary Care Provider Unavailabl e Encounter Details Date Type Department Care Team (Late st Contact Info) Description 10/06/2006 Before PRISM Converted Visit (Maple) [facility] - Maple conversion [address] [place] [address] Adalberto Magaña* Social History Tobacco Use Types Packs/Day Years Used Date Smoking Tobacco: Never Assessed Sex and Gender Information Value Date Recorded Sex Assigned at Not on file Gender Identity Male 10/31/2021 16:59 EDT Sexual Orientation Not on file documented as of this encounter Consult Notes * Lino Herrera Nuclear Medicine Technician - 05/15/2009 0900 EST DIVISION OF OPHTHALMOLOGY SHEET WRITER CENTER CONSULTATION - 10/06/2006 Rick Asher O.D. [address] [place] [address] Asher: you very much for [...] Adalberto Magaña MD 10/08/2006 13:01 [facility] [phone] [place] [phone] Dale [place], MD Adalberto Magaña MD [facility] [phone] Power Tool Repair Technician [place] [phone] - Adalberto Magaña MD P - glt Job ID: [id number] Document ID: [id number] cc: MD Rick Covington, OD* documented in this encounter Plan of Treatment Not on file documented as of this encounter Visit Diagnoses Not on filedocumented in this encounter
--- OUTSIDE RECORDS SUMMARY | 2024-03-18 00:20 | XMS_ITS | Encounter Summary ---
Author Organization [facility] Address [address] [place] [address] Care Team Providers Care Manager Of Quality Name Role Phone Jeanne Gar MD Primary Care Provider [phone] Encounter Details Date Type Department Care Team [...] filedocumented in this encounter Care Teams Manager Of Quality Relationship Specialty Start Date End Date Jeanne Gar MD [address] [place] [address] PCP - General 08/10/15 02/07/22 documented as of this encounter
--- OUTSIDE RECORDS SUMMARY | 2024-03-18 00:20 | XMS_ITS | Encounter Summary ---
Author Organization [facility] Address [address] [place] [address] Care Team Providers Care Patient Registration Clerk Name Role Phone Jeanne Gar MD Primary Care Provider [phone] Encounter Details Date Type Department Care Team (Late st Contact Info) Description 08/13/2015 Historical Results Only [facility] Rad[facility] Results [address] [place] [address] Shanda Ortiz NP [address] [facility] [address] [place] [address] Social History Tobacco Use Types Packs/Day Years [...] on filedocumented in this encounter Care Teams Patient Registration Clerk Relationship Specialty Start Date End Date Jeanne Gar MD [address] [place] [address] PCP - General 08/10/15 02/07/22 documented as of this encounter
--- OUTSIDE RECORDS SUMMARY | 2024-03-18 00:20 | XMS_ITS | Encounter Summary ---
Author Organization [facility] Address [address] [place] [address] Care Team Providers Care Sourcing Coordinator Name Role Phone Jeanne Gar MD Primary Care Provider [phone] Reason for Visit * Reason Onset Date Comments Provider Referred 08/13/2015 Encounter Details Date Type Department Care Team (Late st Contact Info) Description 08/13/2015 Telephone [facility] Dermatology 3[address] [id number] Millie Grigsby MD [address] [place] [address], [address] [place] [address] Provider Referred Social History Tobacco [...] Patient is referred by Dr Carla Solares, [facility] for rash right foot Per notes 07/27/15; [...] 5 years since the patient returned from [facility]. The rash has now spread to his ankle. Notes are in Scans/Media. documented in this encounter Plan of Treatment Not on file documented as of this encounter Visit Diagnoses Not on filedocumented in this encounter Care Teams Sourcing Coordinator Relationship Specialty Start Date End Date Jeanne Gra MD [address] [place] [address] PCP - General 08/10/15 02/07/22 documented as of this encounter
--- OUTSIDE RECORDS SUMMARY | 2024-03-18 00:20 | XMS_ITS | Encounter Summary ---
Author Organization [facility] Address [address] [place] [address] Care Team Providers Care Tool And Die Repair Name Role Phone Twyla White MD Primary [...] Info) Description 12/20/2012 13:00 EDT Office Visit [facility] Ophthalmology - [facility] [address] [place] [address] Garland Moy MD [address] [facility], [address] [place] [address] Social History Tobacco Use Types [...] - 12/21/2012 1333 EDT DIVISION OF OPHTHALMOLOGY VICE PRESIDENT PLANNING CENTER December 20, 2012 Gina Castro OD [address] [place] [address] Castro: Thank you for your very detailed letter and notes regarding Yordan Weston. He is a patient who has previously been seen here by Dr Adalberto Magaña, one of the previous neuro-ophthalmologists here at [facility]. Dr Magaña saw him and identified a [...] 12/26/2012 17:23 Garland Moy MD, FACS Neuro-ophthalmology [address] [place] [address] - Garland Moy MD, FACS - [facility] Job ID: SM Doc ID: [id number] [facility] Doc ID: [id number] cc: MD Gina Covington OD * Garland [...] Time: 14:16, WS Wearing Rx Sphere Cylinder [place] Right [place] +0.50 023 Left -0.25 +1.00 152 Type: [...] encounter Miscellaneous Notes * Scanned Note-Null - BED SPRING MAKER, SCAN 2 - 12/23/2012 1301 EDT documented [...] Vitreous syne resis Wearing Rx Sphere Cylinder [place] Right eye [place] +0.50 023 Left eye -0.25 +1.00 152 Type: SVL Care Teams Tool And Die Repair Relationship Specialty Start Date End Date Twyla White MD [address] [place] [address] PCP - General 12/07/12 08/09/15 documented as of this encounter
--- OUTSIDE RECORDS SUMMARY | 2024-03-18 00:20 | XMS_ITS | Encounter Summary ---
Author Organization [facility] Address [address] [place] [address] Care Team Providers Care Bench Lathe Operator Name Role Phone Jeanne Gar MD Primary Care Provider [phone] Reason for Referral * Radiology Services (Routine/Next Available) - Closed Specialty Diagnoses / Procedures Referred By Cindy garcia Referred To Contact Radiology Diagnoses Lisfranc's sprain, left, subsequent encounter Procedures MR FOOT WO CONTRAST LEFT Carolyn Ashley DPM [address] [facility] [address] [place] [address] [facility] Referral ID Status Reason Start Date Expiration Date Visits Re quested Visits Authorized [id number] Closed 01/15/2022 07/14/2022 1 1 Reason for Visit * Reason Comments Follow-up Encounter Details Date Type Department Care Team (Late st Contact Info) Description 01/17/2022 9:45 EDT Office Visit [facility] Orthopedics & Podiatry [address] [place] [address] Carolyn Ashley DPM [address] [facility] [address] [place] [address] Lisfranc's sprain, left, subsequent encounter (Primary [...] Notes * Socorro Barraza MA - 01/17/2022 0938 EDT Yordan presents today for left foot pain. He was last seen 12/12/21. Last xrays were 12/12/21. * Carolyn Ashley DPM - 01/17/2022 0992 EDT Chief Complaint Patient presents with ??? [...] to 4 weeks Carolyn Ashley, SAVANNA, FACPM [facility] [place], [place] Other Orders Placed This Visit Procedures [...] hindfoot and ankle are excluded from the kpphz-rj-xxgw. Findings: There is indistinct increased signal involving [...] The hindfoot andankle are excluded from the xfzeg-wz-qilv. Findings: There is indistinct increased signal involving [...] encounter documented in this encounter Care Teams Bench Lathe Operator Relationship Specialty Start Date End Date Jeanne Gar MD [address] [place] [address] PCP - General 08/10/15 02/07/22 documented as of this encounter
--- OUTSIDE RECORDS SUMMARY | 2024-03-18 00:20 | XMS_ITS | Encounter Summary ---
Author Organization [facility] Address [address] [place] [address] Care Team Providers Care Drainage Design Coordinator Name Role Phone Jeanne Gar MD Primary Care Provider [phone] Encounter Details Date Type Department Care Team (Latest Contact Info) Description 08/13/2015 10:01 EST - 08/13/2015 23:59 [facility] Hospital Encounter [facility] [address] [place] [address] Unknown, ProviderMD Discharge Disposition: Home or Self [...] Code Departure Means Destination Home or Self Prison documented in this encounter Plan of Treatment Not on file documented as of this encounter Visit Diagnoses Not on filedocumented in this encounter Care Teams Drainage Design Coordinator Relationship Specialty Start Date End Date Jeanne Gar MD [address] [place] [address] PCP - General 08/10/15 02/07/22 documented as of this encounter
--- OUTSIDE RECORDS SUMMARY | 2024-03-18 00:20 | XMS_ITS | Encounter Summary ---
Author Organization [facility] [place] [facility] Address [address] [place] [address] Care Team Providers Care Parts Sales Associate Name Role Phone Unavailable Primary Care Provider Unavailabl e Encounter Details Date Type Department Care Team (Latest Contact Info) Description 10/06/2006 8:46 EDT - 10/06/2006 11:59 EDT Hospital Encounter [facility] [address] [place] [address] Adalberto Magaña* Discharge Disposition: Auto Discharge Social [...]
--- OUTSIDE RECORDS SUMMARY | 2024-03-18 00:20 | XMS_ITS | Encounter Summary ---
Author Organization [facility] Address [address] [place] [address] Care Team Providers Care Blood Tester Name Role Phone Jeanne Gar MD Primary Care Provider [phone] Ricardo Taveras MD Primary Care Provider [phone] Encounter Details Date Type Department Care Team (Late st Contact Info) Description 08/13/2020 Lab Requisition [facility] Pathology & Laboratory Medicine - [address] [address] Outr Resulting Lab, Provider Social History Tobacco [...] C Antibody Negative Negative 08/14/2020 11:32 EST [facility] Blood VENOUS BLOOD / Unknown 08/13/2020 8:55 EST 08/13/2020 22:18 EST Provider Outr Resulting Lab CHEMISTRY & BLOOD GAS ORDERABLES [facility] [address] [place] [address] documented in this encounter Visit Diagnoses Not on filedocumented in this encounter Care Teams Blood Tester Relationship Specialty Start Date End Date Jeanne Gar MD [address] [place] [address] PCP - General 08/10/15 02/07/22 Ricardo Taveras MD [address] [place] [address] PCP - General 02/08/22 documented as of this encounter
--- OUTSIDE RECORDS SUMMARY | 2024-03-18 00:20 | XMS_ITS | Encounter Summary ---
Author Organization [facility] Address [address] [place] [address] Care Team Providers Care Hand Touch Up Painter Name Role Phone Ricardo Taveras MD Primary Care Provider [phone] Reason for Referral * Radiology Services (Routine/Next Available) - Closed Specialty Diagnoses / Procedures Referred By Cindy garcia Referred To Contact Radiology Diagnoses Lisfranc's sprain, left, subsequent encounter Procedures MR FOOT WO CONTRAST LEFT Carolyn Ashley DPM [address] [place] [address] [facility] Referral ID Status Reason Start Date Expiration Date Visits Re quested Visits Authorized [id number] Closed 01/15/2022 07/14/2022 1 1 Reason for Visit * Radiology Services (Routine/Next Available) - Closed Specialty Diagnoses / Procedures Referred By Cindy garcia Referred To Contact Radiology Diagnoses Lisfranc's sprain, left, subsequent encounter Procedures MR FOOT WO CONTRAST LEFT Carolyn Ashley DPM [address] [address] [facility] Referral ID Status Reason Start Date Expiration Date Visits Re quested Visits Authorized [id number] Closed 01/15/2022 07/14/2022 1 1 Encounter Details Date Type Department Care Team (Latest Contact Info) Description 02/08/2022 7:08 EDT - 02/08/2022 23:59 EDT Hospital [facility] Radiology MRI - [address] [address] Lisfranc's sprain, left, subsequent encounter Discharge Disposition: [...] hindfoot and ankle are excluded from the lvoqe-nn-cgbq. Findings: There is indistinct increased signal involving [...] The hindfoot andankle are excluded from the uwnkm-ut-doym. Findings: There is indistinct increased signal involving [...] encounter documented in this encounter Care Teams Hand Touch Up Painter Relationship Specialty Start Date End Date Ricardo Taveras MD [address] [place] [address] PCP - General 02/08/22 documented as of this encounter
--- OUTSIDE RECORDS SUMMARY | 2024-03-18 00:20 | XMS_ITS | Encounter Summary ---
Author Organization [facility] Address [address] [place] [address] Care Team Providers Care Key Account Director Name Role Phone Jeanne Gar MD Primary Care Provider Encounter Details Date Type Department Care Team (Late st Contact Info) Description 08/14/2015 Historical Results Only [facility] Radiology Results [address] [place] [address] [id number] Shanda Ortiz NP [address] [facility] [address] [place] [id number] Social History Tobacco Use Types Packs/Day Years [...] EST Narrative 08/14/2015 8:10 EST ? EXAM: RADIOLOGY/AEXZ-FAAID-2+VIEW ? EX. D/ (0950) ? CLINICAL INFORMATION: [...] CC: ? Transcribed Date/Time: 08/14/2015 (0810) ? Laser Engineer: ? Printed Date/Time: 12/23/2018 (1433) ? PAGE 1 ? Signed Report ? Procedure Note Omid Cruz MD - 05/18/2019 EXAM: RADIOLOGY/PDDK-MKBMN-5+VIEW EX. D/ (0950) CLINICAL INFORMATION: HAND INJURY, [...] Cruz MD CC: Transcribed Date/Time: 08/14/2015 (0810) Laser Engineer: Printed Date/Time: 12/23/2018 (6942) PAGE 1 Signed Report Shanda Ortiz RAILROAD PURCHASING AGENT IMG DIAGNOSTIC IMAGI NG ORDERABLES documented in this encounter Visit Diagnoses Not on filedocumented in this encounter Care Teams Key Account Director Relationship Specialty Start Date End Date Jeanne Gar MD [address] [place] [address] PCP - General 08/10/15 02/07/22 documented as of this encounter
--- OUTSIDE RECORDS SUMMARY | 2024-03-18 00:20 | XMS_ITS | Encounter Summary ---
Author Organization [facility] Address [address] [place] [address] Care Team Providers Care Data Collection Interviewer Name Role Phone Jeanne Gar MD Primary Care Provider [phone] Encounter Details Date Type Department Care Team [...] on filedocumented in this encounter Care Teams Data Collection Interviewer Relationship Specialty Start Date End Date Jeanne Gar MD [address] [place] [address] PCP - General 08/10/15 02/07/22 documented as of this encounter
--- NOTE | 2024-03-18 14:30 | DI.US_ITS ---
APPROVED REPORT EXAM: Comprehensive 2D, Doppler, and color-flow Echocardiogram Patient Location: Out-Patient Floor Installation Mechanic: Colby Rosario RDCS (AE) Indications: Left atrial enlargement Conclusion Normal left ventricular wall thickness and chamber size. Ejection fraction is 60 to 65%. Wall motio n is normal Normal right ventricular size and function Right atrium is borderline enlarged. Left atrium is normal in size. There is an incidental finding of an atrial septal aneurysm There are no structural valvular abnormalities Trace mitral regurgitation Estimated right ventricular systolic pressure is 27 mmHg Aortic root measures 4.16 cm, ascending aorta measures 3.44 cm Wall motion Left Ventricle The left ventricle is normal size. The left ventricular systolic function is normal. The left ventric ular ejection fraction is within the normal range. There is normal left ventricular wall thickness. T here is normal LV segmental wall motion. There is no ventricular septal defect visualized. LVEF is 60 -65%. Right Ventricle The right ventricle is normal size. The right ventricular systolic function is normal. Atria The left atrium size is normal. Right atrium is borderline dilated. The atrial septum is thin and hyp ermobile Aortic Valve The aortic valve is normal in structure. Aortic valve is trileaflet. There is no aortic valvular sten osis. No aortic regurgitation is present. Mitral Valve The mitral valve is normal in structure. No evidence of mitral valve stenosis. Trace mitral regurgita tion. Tricuspid Valve The tricuspid valve is normal in structure. There is no tricuspid valve stenosis. Trace tricuspid reg urgitation. The RVSP is 27.0 mmHg. Pulmonic Valve The pulmonary valve is normal in structure. There is no pulmonic valvular stenosis. There is no pulmo scout valvular regurgitation. Great Vessels Aortic root is moderately dilated. Ascending aorta is upper limites of normal. Aortic arch is normal in caliber. IVC is normal in size and collapses >50% with inspiration. Pericardium There is no pericardial effusion. 2D Dimensions IVSD d PLAX 0.78 cm M: 0.6-1.2 Ao Root d 4.16 cm M: 3.1 - 3.7 LVPW d PLAX 0.84 cm M: 0.6 - 1.2 Ao Asc Diam d 3.44 cm M: 2.6 - 3.4 LVID d PLAX 4.52 cm M: 4.2 - 5.8 LVDs 2.91 cm M: 2.5 - 4.0 LV EF Teichholz 65.2 % FS 35.63 % LV EDV (Teich) 93.3 mL LV ESV (Teich) 32.4 mL Stroke Vol Index (Teich) 29.84 M-Mode TAPSE 2.33 cm (M/F) >1.7 Auto EF LV EDV A4C 105.7 mL LV EDV A2C 131.3 mL LV EDV BP 118.4 mL LV ESV A4C 40.6 mL LV ESV A2C 44.9 mL LV ESV BP 43.2 mL LVEF(%) A4C 61.6 % LVEF(%) A2C 65.8 % LVEF(%) BP 63.5 % LV SV A4C 65.1 ml LV SV A2C 86.4 ml LV SV BP 75.2 ml LV CO A4C 4.1 L/min LV CO A2C 4.6 L/min LV CO BP 4.3 L/min HR A4C 62.94 BPM HR A2C 53.02 BPM LV EDV Index (BP) LA Volume LA Length A4C 4.1 cm LA Length A2C 4.6 cm LA Area A4C s 8.69 cm2 LA Area A2C s 16.55 cm2 LA Vol A4C A-L 15.57 mL LA Vol A2C A-L 50.06 mL LA Vol Biplane A-L 29.7 mL LA Vol/BSA A4C A-L LA Vol/BSA A2C A-L LA Vol/BSA BP A-L 14.5 mL/m2 LA Vol A4C MOD 13.8 mL LA Vol A2C MOD 46.3 mL LA Vol BP MOD 26.1 mL RA Volume RA Area A4C 10.9 cm2 RA ESV A4C (A-L) 29.6mL RA Vol/BSA A4C A-L RA Length A4C 3.4 cm RA ESV A4C (MOD) 27.0mL LV Diastology MV E' medial 0.099 (>0.07 m/s) MV E Vmax 0.60 (0.4-1.3 m/s) MV E/E' MED 6.05 (<14) MV A Vmax 0.55 (0.4-1.3 m/s) MV E' lateral 0.139 (>0.1 m/s) E/A Ratio 1.1 MV E/E' LAT 4.30 (<14) MV E' Average 0.119 m/s MV E/E'(average) 5.03 Aortic Valve AoV Vmax 1.12 m/s LVOT Vmax 0.99 m/s AoV Peak Grad 5.1 mmHg LVOT Peak Grad 3.9 mmHg AoV Area (Vmax) 3.91 cm2 LVOT VTI 0.207 m AoV VTI 0.245 m LVOT Mean Grad 1.9 mmHg AoV Mean Anmol. 0.78 m/s LVOT SV 92.01 mL AoV Mean Grad 2.8 mmHg LVOT Diam s 2.35 cm AoV Area (VTI) 3.75 cm2 AV Regurg Peak Gr. 5.06 mmHg Velocity Ratio 0.88 Mitral Valve MV DT 159 (160-240 msec) MV Vmax TIPS 0.55 m/s MV Mean Grad 0.5 (<2mmHg) MV VTI 0.170 m Pulmonary Valve PV Vmax 0.90 (0.5-1.5 m/s) RVOT Vmax 0.63 m/s PV Peak Grad 3.3 mmHg RVOT Peak Gr. 1.6 mmHg PV Mean Anmol 0.66 m/s RVOT VTI 0.136 m PV Mean Grad 2.0 mmHg RVOT Mean Gr. 0.8 mmHg Tricuspid Valve RA Pressure 3.00 mmHg TR Vmax 2.45 m/s TR Peak Grad 23.9 mmHg RVSP (TR) 27.0 mmHg
== END 2024-03-18 00:37 ==
LOC: DI 00:17
PROVIDERS: PCP Nurse Practitioner Family; Visit Provider Nurse Practitioner Family
DX: I51.7 Cardiomegaly (principal)
CPT/HCPCS: 93306

== ENCOUNTER → 2024-04-07 13:48 | Outpatient (BNVA) | payer OTHER, SELFPAY | PROVIDERS: PCP Nurse Practitioner Family; Referring Provider Student in an Organized Health Care Education/Training Program; Visit Provider Psychiatry & Neurology Neurology | DX: G45.9 Transient cerebral ischemic attack, unspecified (principal); R29.898 Other symptoms and signs involving the musculoskeletal system; R29.818 Other symptoms and signs involving the nervous system; Q28.3 Other malformations of cerebral vessels | CPT/HCPCS: 99215; G2212 ==

== ENCOUNTER 2024-05-12 10:52 | Outpatient (CLI) | payer OTHER, SELFPAY ==
--- NOTE | 2024-05-12 12:24 | W.CARDEVENT ---
Date of service: 05/12/24 Time of Service: 12:24 Cardiac Event Recorder Referring Provider:: Kassandra Cook Indications:: Transient cerebral ischemia Cardiac Event Note: This is a cardiac event monitor. Patient was monitored for 25 days and 6 hours Rhythm throughout was sinus. Average heart rate was 72. Maximum was 165, minimum 56. There were rare isolated ventricular ectopic beats. there was no atrial fibrillation, no high-grade AV block, no pauses greater than seconds Patient's symptoms correlated to sinus rhythm
== END 2024-05-12 10:53 | disposition home or self-care (01) ==
LOC: CARDOPNVT 10:52
PROVIDERS: PCP Nurse Practitioner Family; Referring Provider Psychiatry & Neurology Neurology; Visit Provider Internal Medicine Cardiovascular Disease
DX: G45.9 Transient cerebral ischemic attack, unspecified (principal)

== ENCOUNTER → 2024-06-02 08:34 | Outpatient (BNVA) | payer OTHER, SELFPAY | PROVIDERS: PCP Nurse Practitioner Family; Referring Provider Nurse Practitioner Family; Visit Provider Physical Therapy Assistant | DX: Z12.11 Encounter for screening for malignant neoplasm of colon (principal); Z80.0 Family history of malignant neoplasm of digestive organs ==

== ENCOUNTER → 2024-06-23 13:13 | Outpatient (BNVA) | payer OTHER, SELFPAY | PROVIDERS: PCP Nurse Practitioner Family; Referring Provider Nurse Practitioner Family; Visit Provider Psychiatry & Neurology Neurology | DX: G45.9 Transient cerebral ischemic attack, unspecified (principal); R29.898 Other symptoms and signs involving the musculoskeletal system; R29.818 Other symptoms and signs involving the nervous system; Q28.3 Other malformations of cerebral vessels | CPT/HCPCS: 99214 ==

== ENCOUNTER 2024-07-01 07:05 | Day surgery (SDC) | payer OTHER, SELFPAY ==
[2024-07-01 07:31] VITALS: BP 111/97; PULSE 72; RESP 16; TEMP 36.6; O2SAT 98
[2024-07-01] MEDS: Normal Saline 500 ML 30 ML IV (07:45)
--- NOTE | 2024-07-01 08:40 | ANES.PREOP_ITS ---
General Info Date of Service Date Performed: 07/01/24 Height: 5 ft 10 in Weight: 88.6 kg Body Mass Index (BMI): 28.0 Surgical Procedure: Operation Date: 07/01/24 08:20 Proposed Procedure Side Surgeon aracely Julian, Meds Allergies and Home Medications Allergies Allergy/AdvReac Type Severity Reaction Status Date / Time doxycycline Allergy Unknown Other (See Verified 07/01/24 07:27 Comment) Home Medication ?Medication ?Instructions ?Recorded buspirone 10 mg tablet 10 mg PO BID 03/17/24 aspirin 81 mg tablet,delayed 81 mg PO DAILY 06/02/24 release bisacodyl 5 mg tablet,delayed 5 mg PO ONCE #4 tabs 06/02/24 release (Dulcolax (bisacodyl)) polyethylene glycol 3350 17 17 g PO ONCE #238 grams 06/02/24 gram/dose oral powder Current Visit Medications: Current Medications Generic Name Dose Route Start Last Admin Trade Name Freq PRN Reason Stop Dose Admin Hyoscyamine Sulfate 0.125 mg 07/01/24 11:58 Hyoscyamine 0.125 Mg Sl/Oral/Chew SL 07/31/24 11:57 DIRECTED PRN Sodium Chloride 500 mls @ 30 mls/hr 07/01/24 07:00 07/01/24 07:45 Saline 500ml Bag IV 07/31/24 06:59 30 mls/hr INFUSION SARAH Administration IV Miscellaneous Supplies 1 each 07/01/24 06:00 Iv Access IV 07/30/24 23:59 DIRECTED SARAH Ondansetron HCl 4 mg 07/01/24 11:58 Ondansetron 4 Mg/2 Ml Vial IVP 07/31/24 11:57 Q4H PRN PRN Nausea / Vomiting Sodium Chloride 0 ml 07/01/24 06:00 Normal Saline Flush 10 Ml Syr IV 07/30/24 23:59 PRN PRN Sodium Chloride 0 ml 07/01/24 06:00 Normal Saline 10 Ml Vial IJ 07/30/24 23:59 DIRECTED PRN Sterile Water 0 ml 07/01/24 06:00 Water,Injection,Sterile 10 Ml Vial IJ 07/30/24 23:59 DIRECTED PRN PFSH Active Problems Active Problems: Problem Status Onset Code Cerebral cavernoma Acute Q28.3 Transient neurologic deficit Acute R29.818 Medical History Medical History 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 states no potential triggers at this time Anxiety disorder Overweight Onychomycosis due to dermatophyte Surgical History Surgical History Hx of lymph node excision Left groin Hx of colonoscopy [place] teeth extracted S/P vasectomy Tobacco Smoking/Tobacco Use Status: Never Alcohol Alcohol Intake: never Substance Use Substance use: Never Substance use type: does not use Vital Signs and Lab Results Vital Signs Most Recent Vital Signs in EMR: Most Recent Vital Signs Temp Pulse Resp BP Pulse Ox 36.6 C 72 16 111/97 H 98 07/01/24 07:31 07/01/24 07:31 07/01/24 07:31 07/01/24 07:31 07/01/24 07:31 Lab Results Blood Type / Crossmatch: No Data to Display Complete Blood Count: No Data to Display Complete Metabolic Panel: No Data to Display Liver Function Panel: No Data to Display Coagulation Panel: No Data to Display Cardiac Panel: No Data to Display Arterial Blood Gas: No Data to Display Venous Blood Gas: No Data to Display Pancreas Panel: No Data to Display Thyroid Panel: No Data to Display Infectious Disease: No Data to Display Blood Cultures: No Data to Display Toxicology Panel: No Data to Display Imaging and Studies Imaging and Studies Study information below may be from another EMR and interpreted by another provider. Please see original notes in EMR for more complete details. EKG Summary: Conclusion Sinus rhythm...normal P axis, V-rate 60- 99 Probable left atrial enlargement...P >50mS, <-0.10mV V1 03/10/24 Echocardiogram Summary: Patient Name: Yordan Weston Unit #: [id number] Loc: DI Ordering Provider: Darinel Sidhu M.D. Status: REG CLI Primary Care Provider: Nita Eason Date of Exam: 06/30/24 Sex: M Admission Date: 06/30/24 : 1985 Age: 39 APPROVED REPORT EXAM: Comprehensive 2D, Doppler, and color-flow Echocardiogram Patient Location: Out-Patient Perinatal Nurse: Colby Rosario RDCS (AE) Indications: Atrial septal aneurysm, evaluate for PFO Echo Enhancing Agent Indication: Rule out Shunt Agent(s) / Amount(s) Used: Agitated Saline 40.0 cc Comments: Contrast study was performed with 4 IV injections of 10ccs of agitated normal saline, at rest, with cough and post valsalva maneuver. Positive contrast study for right to left shunt flow. Conclusion Atrial septal aneurysm. Injection of agitated saline shows duay-ja-owpjj flow consistent with patent foramen ovale Patient Name: Yordan Weston Unit #: [id number] Loc: DI Ordering Provider: Jacquelyn Johnson Status: REG CLI Primary Care Provider: Nita Eason Date of Exam: 03/18/24 Sex: M Admission Date: 03/18/24 : 1985 Age: 38 APPROVED REPORT EXAM: Comprehensive 2D, Doppler, and color-flow Echocardiogram Patient Location: Out-Patient Perinatal Nurse: Colby Rosario RDCS (AE) Indications: Left atrial enlargement Conclusion Normal left ventricular wall thickness and chamber size. Ejection fraction is 60 to 65%. Wall motion is normal Normal right ventricular size and function Right atrium is borderline enlarged. Left atrium is normal in size. There is an incidental finding of an atrial septal aneurysm There are no structural valvular abnormalities Trace mitral regurgitation Estimated right ventricular systolic pressure is 27 mmHg Aortic root measures 4.16 cm, ascending aorta measures 3.44 cm Anesthesia Assessment and Plan Anesthesia History Personal History: No History of Anesthesia Complications Family History: No Family History of Anesthesia Complications Exercise Tolerance Exercise Tolerance: Metabolic Equivalents>4 Pertinent Negatives Pertinent Negatives: No Symptoms of GERD, No Major Cardiovascular Symptoms or Complaints and No Major Pulmonary Symptoms or Complaints Cardiac & Pulmonary Exam Cardiac Exam: Normal S1/S2 Heart Sounds Pulmonary Exam: Clear Bilateral Breath Sounds Cardiac and Pulmonary Comment:: ERUM CPaP Implantable Cardiac Device Does patient have a Pacemaker or an ICD?: No Airway Exam Known Difficult Airway: No Mallampati Class: 3 Mouth Opening: Normal (> 3cm) Thyromental Distance: Less than 3 cm Neck Range of Motion: Full ROM Neck Circumference: Normal Teeth Condition: Normal Dentition ASA Classification ASA Score: ASA 3 Emergency Case?: No NPO Status NPO Status: NPO Clears >2 hours, Solids >8 hours Anesthesia Plan Resuscitation Status: Full Code Anesthesia Technique: General Anesthesia Airway Planned: Natural Airway Monitors Used: Standard Monitors Preoperative Comments:: Last neurologic symptoms mid March, numbness left arm. Questionable TIA. Discussed increased risk of clots/stroke due to PFO.
[2024-07-01 08:42] VITALS: BMI 28.0
[2024-07-01 09:29] VITALS: BP 105/69; PULSE 68; RESP 16; TEMP 36.3; O2SAT 97
--- NOTE | 2024-07-01 09:50 | COLE_ITS ---
Date of service: 07/01/24 Time of Service: 09:50 Colonoscopy Report Date of procedure: 07/01/24 Pre-op diagnosis general: 2 second-degree family members with colorectal cancer Post-op diagnosis procedure note: same Surgeon: Va Julian Anesthesia Type: General:No Airway Estimated blood loss (mL): 0 Pathology: none sent Complications: None Disposition: same day Prep: Miralax/Dulcolax Retraction Time: 7 Procedure Description: After informed consent was obtained, explaining risks of the procedure, including but not limits to: bleeding, infections, complications of anesthesia, perforations (which may require antibiotics and /or surgery and stay in the hospital), and abdominal pain/cramping. The patient was taken to the procedure room and placed in a left decubitous position. Monitors were applied and a time out was done. The patients name, date of , procedure, allergies to medications and metal in their body was reviewed. The patient was then sedated. Once sedated and comfortable a rectal exam was done. External exam was normal. Internal exam revealed a normal sphincter tone and no palpable masses. The prostate no palpable masses The previously lubricated Olympus scope was then introduced (see RN notes for scope number) and retrofelexed. No internal hemorrhoids were identified. The scope was then advanced to the cecum without difficulty. The TI and appendiceal orifice were identified. The scope was then slowly retracted over 7 minutes back into the rectum. Polyps: No diverticula: No. the mucosa is pink and healthy w/ a normal vascular pattern. The scope was removed, and the patie nt was woken up and taken back to Same day surgery in stable condition. The patient tolerated the procedure well and there were no immediate complications. Follow up: The patient should follow up in 5 years, unless they develop changes in bowel habits or other new gastrointestinal complaints. Hurricane Bowel Prep Hurricane Bowel Prep Right Colon: 3 Left Colon: 3 Transverse Colon: 3 Total Score: 9
--- NOTE | 2024-07-01 09:51 | W.ANESPOSTOP ---
Postoperative Evaluation Date, Time and Location Date Performed: 07/01/24 Time Performed: 09:46 Patient Location: Day Surgery Unit Vital Signs Most Recent Imported Vital Signs: Most Recent Vital Signs Temp Pulse Resp BP Pulse Ox 36.3 C L 68 16 105/69 97 07/01/24 09:29 07/01/24 09:29 07/01/24 09:29 07/01/24 09:29 07/01/24 09:29 Pain Score Most Recent Pain Score: Most Recent Pain Score Pain Level 0 07/01/24 07:31 Assessment Mental Status: Awake (Alert & Oriented to Patient Baseline) Airway and Respiratory Function: Patent airway with normal (patient baseline) respiratory exam Cardiovascular Function: Hemodynamically Stable Hydration Status: Adequately Hydrated Nausea & Vomiting: No Nausea or Vomiting Pain: Pt. Denies Any Pain Peripheral Nerve Block: Patient did not receive a nerve block
[2024-07-01 09:56] VITALS: BP 109/80; PULSE 60; RESP 16; TEMP 36.1; O2SAT 99
--- NOTE | 2024-07-01 10:31 | PDOC.DSDIS_ITS ---
Date of service: 07/01/24 Discharge Plan Disposition Patient Disposition: Home Condition: Good Discharge Details Reason For Visit: Colon cancer screening Attending Provider: Va Julian Primary Care Provider: Nita Eason Home Meds and New Rx's Prescriptions: Continued aspirin 81 mg tablet,delayed release (DR/EC) 81 mg PO DAILY buspirone 10 mg tablet 10 mg PO BID Discontinued bisacodyl [Dulcolax (bisacodyl)] 5 mg tablet,delayed release (DR/EC) 5 mg PO ONCE Qty: 4 0RF Rx Instructions: Take per colonoscopy instructions provided by ordering providers office No Action polyethylene glycol 3350 17 gram/dose powder 17 g PO ONCE Qty: 238 0RF Rx Instructions: Take per colonoscopy instructions provided by ordering providers office Discharge Instructions Additional Instructions: DSU Colonoscopy Post- Op Instructions Instructions for Everyone who is given Anesthesia: For your safety, please do the following for the next twenty-four (24) hours: *Do Not operate a motor vehicle (car, truck, motorcycle, etc.) *Do Not drink alcoholic beverages or use any recreational drugs for the first 24 hours or while taking pain medications. The medications in your body may have a reaction that can be dangerous. *Do Not make any important decisions or sign any important papers. Findings: normal colon Follow up: repeat in 5 yrs time use CPAP if taking a nap today b/c you had anesthesia 1. No lifting over 20 pounds or strenuous activity for the first 24 hours after your procedure. After 24 hours there are no restrictions on your activity but you may feel fatigued for a few days. 2. After you arrive home you may have a light meal and return to your normal diet as you can tolerate it without feeling sick to your stomach. 3. You may have a bloated, gaseous feeling in your belly (abdomen) after a colonoscopy. Passing gas and belching will help. Walking or lying down on your left side with your knees flexed may relieve the discomfort. Call the office at [phone] (Office) or [phone] (Hospital) right away if you notice any of the following: a.Vomiting of blood or ?coffee ground stools?. b.Rectal bleeding 1Tbsp, blood clots or continuous bleeding. c.Severe belly (abdominal) pain. d.A hard distended belly (abdomen) and an inability to pass gas. 4. Please don?t expect to have a normal BM (bowel movement) for 2-3 days after your procedure. 5. If there are questions regarding the findings of your procedure, please contact your doctor 6. If you are unable to contact your doctor with a problem, contact the hospital at [phone]. 7. Continue all your regular medications unless directed otherwise. I understand the above instructions and have no questions. Signature of Patient or Adult Escort Name of Responsible Adult Escort Signature of Nurse Date/Time Stand Alone Forms: Harvey Britt (DARRICKU) Activity:: See above Diet:: See above Discharge Orders Discharge Orders: Discharge Order (Routine); Ordered 07/01/24 Ordered By: Va Julian DS: Diagnosis Discharge Diagnosis (1) Family history of malignant neoplasm of colon in relative diagnosed when older than 50 years of age: Status: Acute Asessment and Plan: The patient is seen and examined after their colonoscopy.? The patient has been able to pass gas.? They are not having abdominal pain.? They have been able to tolerate liquids and a snack.? They do not have any nausea or vomiting.? They are not having any chest pain or shortness of breath.??? They are not having any rectal bleeding. Their vital signs have been stable-see nursing notes. We discussed findings during their colonoscopy, and any biopsies that were done/polyps that were removed. The patient will be sent a letter with any biopsy results, and when to repeat the colonoscopy.-see discharge instructions. Patient was given explicit instructions to follow-up regarding colonoscopy-refer to discharge instructions.? We reviewed resumption of medications. Patient verbalized understanding and discharged in stable and satisfactory condition- See nursing notes. (2) Transient neurologic deficit: Status: Acute (3) PTSD (post-traumatic stress disorder): (4) Atrial septal aneurysm: (5) Obstructive sleep apnea: (6) PFO (patent foramen ovale): Status: Acute
== END 2024-07-01 10:40 | disposition home or self-care (01) ==
PROVIDERS: PCP Nurse Practitioner Family; Visit Provider Surgery
PROC: 0DJD8ZZ Inspection of Lower Intestinal Tract, Via Natural or Artificial Opening Endoscopic (ICD-10-PCS; CPT 45378; principal; 2024-07-01 08:15)
DX: Z80.0 Family history of malignant neoplasm of digestive organs (principal); Z12.11 Encounter for screening for malignant neoplasm of colon
CPT/HCPCS: G0105; J2003; J2704

== ENCOUNTER 2024-08-22 02:40 | Outpatient (CLI) | payer OTHER, SELFPAY ==
[2024-08-22 13:48] LABS: C-Reactive Protein < 0.50 mg/dL (<or=0.5)
[2024-08-23 13:31] LABS: ANA Interpretation Negative (Negative)
== END 2024-08-22 02:41 | disposition home or self-care (01) ==
LOC: LBO 02:40
PROVIDERS: PCP Nurse Practitioner Family; Visit Provider Surgery
DX: K59.4 Anal spasm (principal)
CPT/HCPCS: 36415; 86038; 86140

== ENCOUNTER 2024-12-30 15:21 | Outpatient (REF) | payer OTHER, SELFPAY ==
[2024-12-30 15:06] LABS: Abs Immature Grans 0.01 10^3/uL (0.0-0.06); Absolute Basophil Count 0.05 10^3/uL (0.0-0.2); Absolute Eosinophil Count 0.15 10^3/uL (0.0-0.7); Absolute Lymphocyte Count 1.54 10^3/uL (1.2-3.4); Absolute Monocyte Count 0.62 10^3/uL (0.1-0.8); Absolute Neutrophil Count 3.26 10^3/uL (1.2-6.7); Basophils % 0.9 %; Eosinophils % 2.7 %; HCT 45.5 % (40.0-50.0); HGB 15.7 g/dL (13.5-17.5); Immature Grans % 0.2 %; Lymphocytes % 27.4 %; MCH 30.3 pg (27.0-33.0); MCHC 34.5 % (32.0-36.0); MCV 88 fL (80-95); MPV 9.5 fL (8.0-11.0); Neutrophils % 57.8 %; Platelet Count 226 10^3/uL (130-400); RBC 5.19 10^6/uL (4.36-5.78); RDW 12.2 % (11.8-14.1); RDW-SD 39.4 fL; WBC 5.63 10^3/uL (4.4-10.8)
[2024-12-30 15:48] LABS: ALT 37 U/L (16-63); AST 22 U/L (15-37); Albumin 4.2 g/dL (3.4-5.0); Alkaline Phosphatase 102 U/L (46-116); Anion Gap 6.1 mmol/L (3-11); BUN 29 mg/dL (7-18); Bilirubin, Total 0.6 mg/dL (0.2-1.0); CO2 30.9 mmol/L (21.0-32.0); Calcium 9.1 mg/dL (8.5-10.1); Chloride 103 mmol/L (98-107); Estimated GFR 96.97 (mL/min/1.73m2); Ferritin 164 ng/mL (26-388); Glucose 94 mg/dL (74-106); Iron 103 ug/dL (65-175); Magnesium 1.9 mg/dL (1.8-2.4); Potassium 4.9 mmol/L (3.5-5.1); Sodium 140 mmol/L (136-145); TSH (W/Ref FT4) 0.66 uIU/mL (0.36-3.74); Total Iron Binding Capacity 209 ug/dL (250-450); Transferrin Sat 49 % (20-55)
== END 2024-12-30 15:22 | disposition home or self-care (01) ==
LOC: NCHCN 15:21
PROVIDERS: PCP Nurse Practitioner Family; Visit Provider Nurse Practitioner Family
DX: G47.62 Sleep related leg cramps (principal)
CPT/HCPCS: 80053; 82728; 83540; 83550; 83735; 84443; 85025

== ENCOUNTER 2025-04-03 17:48 | Outpatient (REF) | payer OTHER, SELFPAY ==
[2025-04-03 22:20] LABS: PSA, Screening 0.7 ng/mL (<=2.5)
== END 2025-04-03 17:49 | disposition home or self-care (01) ==
LOC: NCHCN 17:48
PROVIDERS: PCP Nurse Practitioner Family; Visit Provider Nurse Practitioner Family
DX: Z80.42 Family history of malignant neoplasm of prostate (principal)
CPT/HCPCS: 84153